=== PATIENT | male | born 1970 | race Two or more races ===

== ENCOUNTER 2024-03-23 17:23 | Inpatient (IN) | payer MEDICAID, SELFPAY ==
[2024-03-23 17:24] VITALS: BMI 29.0
[2024-03-23 17:32] VITALS: BP 128/77; PULSE 94; RESP 18; TEMP 37.1; O2SAT 98
--- NOTE | 2024-03-23 17:42 | XR_ITS ---
Examination: Foot, right, 3 views Technique: AP, oblique, lateral views foot, 3 views Date and time of exam: March 23, 2024 1748 hours INDICATIONS: Status post amputation 5 years ago, persistent foot pain, MRI foot right March 05, 2024 erosion medial cuneiform FINDINGS: Status post amputation at the level of the proximal metatarsals Erosion involving the medial aspect of the medial cuneiform IMPRESSION: Consider repeat MRI right foot follow-up to confirm osteomyelitis medial cuneiform
--- NOTE | 2024-03-23 17:43 | PD.EDRME ---
Rapid Medical Screening Exam E Arrival date/time: 03/23/24 17:23 54-year-old male with past medical history of diabetes and amputations presents emergency department complaining of worsening wound to right foot. Patient also endorses generalized weakness. Chief Complaint: Ankle/Foot Injury Time Seen by Provider: 03/23/24 17:32 Vital signs: Vital Signs Temperature 98.7 F 03/23/24 17:32 Pulse Rate 94 03/23/24 17:32 Respiratory Rate 18 03/23/24 17:32 Blood Pressure 128/77 03/23/24 17:32 Pulse Oximetry (%) 98 03/23/24 17:32 Oxygen Delivery Method Room Air 03/23/24 17:32
[2024-03-23 18:10] LABS: Lactate (Lactic Acid) 1.6 mMol/L (0.4-2.0)
[2024-03-23 18:11] LABS: Basophils % (Auto) 1 % (0-2.5); Eosinophils # (Auto) 0.3 Thou/mm3 (0.0-0.5); Eosinophils % (Auto) 3 % (0-10); Hematocrit 45.9 % (41.0-53.0); Hemoglobin 15.2 g/dL (13.5-16.0); Immature Granulocytes % (Auto) 0 % (0-0); Immature Granulocytes Auto 0.01 Thou/mm3 (0.00-0.00); Lymphocytes # (Auto) 2.6 Thou/mm3 (1.0-4.8); Lymphocytes % (Auto) 33 % (10-50); Mean Corpuscular HGB Conc 33.1 g/dl (31.0-37.0); Mean Corpuscular Hemoglobin 28.7 pg (25.0-35.0); Mean Corpuscular Volume 87 fL (80-100); Monocytes # (Auto) 0.4 Thou/mm3 (0.0-0.8); Monocytes % (Auto) 5 % (0-12); Neutrophils # (Auto) 4.6 Thou/mm3 (1.8-7.7); Neutrophils % (Auto) 58 % (37-80); Nucleated Red Blood Cell % 0 /100 WBC (0); Platelet Count 298 Thou/mm3 (140-440); RDW Standard Deviation 40.7 fL (35.1-43.9); Red Blood Count 5.29 Miln/mm3 (4.50-5.90); White Blood Count 7.9 Thou/mm3 (3.8-10.6)
[2024-03-23 18:45] LABS: Alanine Aminotransferase 21 U/L (10-49); Albumin, Serum 4.3 gm/dL (3.5-5.0); Albumin/Globulin Ratio 1.4 (1.2-2.2); Alkaline Phosphatase 142 U/L (46-116); Anion Gap 7 (7-16); Aspartate Amino Transferase 20 U/L (0-34); BUN/Creatinine Ratio 15 Ratio (12-20); Bilirubin,Total 0.3 mg/dL (0.3-1.2); Blood Urea Nitrogen 16 mg/dL (9-23); Calcium 9.7 mg/dL (8.3-10.6); Calcium (Corrected) 9.7 mg/dL (8.5-10.1); Carbon Dioxide 24.4 mMol/L (20.0-31.0); Chloride 107 mMol/L (98-107); Creatinine (Component) 1.1 mg/dL (0.6-1.3); Estimated Creatinine Clearance 104.6 mL/min (>60); Globulin 3.1 gm/dL (2.3-3.5); Glucose 189 mg/dL (74-106); Lipase 36 U/L (12-53); Osmolality,Calculated 281 (275-295); Procalcitonin 0.07 ng/ml (0.0-0.49); Sodium 138 mMol/L (136-145); Total Protein 7.4 gm/dL (5.7-8.2); eGFR > 60 See Note
--- NOTE | 2024-03-23 19:12 | PD.EDANKLE ---
Lower Extremity Injury RME/HPI General Chief Complaint: Ankle/Foot Injury Stated Complaint: OLD WOUND RIGHT FOOT OPENED YESTERDAY Time Seen by Provider: 03/23/24 17:32 Arrival date/time: 03/23/24 17:23 RME / HPI RME / HPI Narrative: 03/23/24 17:23 54-year-old male with past medical history of diabetes and amputations presents emergency department complaining of worsening wound to right foot. Patient also endorses generalized weakness. Main ED Evaluation: Patient is a 54 y.o male with PMhx significant for DM, multiple amputations of feet, CAD, osteomyelitis of L and R digits on PO Abx presented to the ED with worsening right foot pain. Patient states he has been on his PO Levofloxacin and Doxycyline, with course to finish on 04/16. Patient states that since Friday, patient has noted subjective fevers, sweating, chills, nausea, constipation and feeling generalized weakness. Patient also states that his right foot feels really heavy. Patient last bowel movement was on Friday. Patient states that he has been compliant with his insulin, oral antibiotics and daily wound dressings as per discharge instructions from previous hospitalization. Of note, Patient was initally on IV Abx and d/t issues with his insurance, ID specialist agreed for trial of oral PO Abx. Recent send-out labs ordered by Dr. Bal, ID specialist was negative for HIV, Hepatitis, and Quantiferon Gold. Meds: Insulin glargine 40u QAM, Insulin Aspart 12u TID, Asa 81mg QD, Levo 750mg QD, and Doxycycline 100mg BID Related Data Home Medications ?Medication ?Instructions ?Recorded ?Confirmed gabapentin 300 mg capsule 300 mg PO TID 09/27/17 03/06/24 lactulose 20 gram/30 mL oral 30 ml PO EVERYOTHERDAY 09/27/17 03/05/24 solution Previous Rx's ?Medication ?Instructions ?Recorded magnesium 200 mg tablet 200 mg PO QDAY #10 tabs 01/06/24 acetaminophen 325 mg tablet 650 mg (2 x 325 mg) PO Q6H PRN 03/12/24 Pain Scale 1-3 (Mild #14 tabs aspirin 81 mg tablet,delayed 81 mg PO QDAY #30 tabs 03/12/24 release doxycycline hyclate 100 mg capsule 100 mg PO BID 34 days #68 caps 03/12/24 insulin aspart U-100 100 unit/mL 12 unit (0.12 mL) subcut TID #15 mL 03/12/24 (3 mL) subcutaneous pen insulin glargine 100 unit/mL (3 40 unit (0.4 mL) subcut QAM #15 mL 03/12/24 mL) subcutaneous pen levofloxacin 750 mg tablet 750 mg PO QDAY 34 days #34 tabs 03/12/24 lisinopril 40 mg tablet 40 mg PO QDAY #30 tabs 03/12/24 multivitamin with folic acid 400 1 tab PO QDAY #30 tabs 03/12/24 mcg tablet (Tab-A-John) polyethylene glycol 3350 17 4 g PO QDAY PRN constipation #238 03/12/24 gram/dose oral powder (Miralax) grams Allergies Allergy/AdvReac Type Severity Reaction Status Date / Time vancomycin Allergy Severe Swelling Verified 03/23/24 17:26 of Lip/Tongue/Throat Review of Systems Review of Systems Narrative Review of Systems: GEN: + fever, + chills, no weight loss, lack of appetite EYES: No discharge, no visual changes, no pain HEENT: No ear pain, no congestion, no sore throat PULM: No shortness of breath, no cough, no congestion CV: No chest pain, no dyspnea on exertion, no palpitations GI: +nausea, no vomiting, no diarrhea, no pain, + constipation : No frequency, no urgency, no dysuria MUSC/SKEL: +Right stump pain, No joint pain, no back pain SKIN: No rash PSYCH: No hallucinations, no depression HEME/LYMPH: No easy bleeding or bruising tendencies NEURO: +weakness, no headache ED Exam Narrative Physical exam: General Appearance: Pt in mild acute distress sitting in his wheelchair. HEENT: NC/AT, no scleral icterus, no conjunctival pallor, MMM Lungs: CTAB, no wheezes or crackles appreciated CVS: RRR, S1/S2 heard, no murmurs or rubs appreciated ABD: Soft, non-tender, non-distended, BS + in all 4 quadrants EXT: Right plantar surface open wound 1.5cm wide with no adjacent pus or drainage noted, covered with dressing wound. Lateral left fifth metatarsal linear open wound healing, site is clean and intact, covered with dressing. SKIN: Skin exam normal without any rashes. Neuro: A&O x 3. No gross neurological deficits. Motor and sensory grossly intact in B/L UL and LL. Psych: Appropriate mood and affect Course Quality Measures none Orders Category Date Time Status XR foot comp RT min 3V Stat Exams 03/23/24 17:42 Completed CBC Stat Lab 03/23/24 17:50 Completed CMP [Comprehensive Metabolic Panel] Stat Lab 03/23/24 17:50 Completed Lactic Acid [Lactate (Lactic Acid)] Stat Lab 03/23/24 17:50 Completed Lipase Stat Lab 03/23/24 17:50 Completed Procalcitonin Stat Lab 03/23/24 17:50 Completed Vital Signs Vital signs: Vital Signs Temperature 98.7 F 03/23/24 17:32 Pulse Rate 94 03/23/24 17:32 Respiratory Rate 18 03/23/24 17:32 Blood Pressure 128/77 03/23/24 17:32 Pulse Oximetry (%) 98 03/23/24 17:32 Oxygen Delivery Method Room Air 03/23/24 17:32 Extremity Injury, Lower Patient data External records reviewed:: [facility] previous records Clinical information provided by:: patient Social determinants that could affect healthcare access:: other (specify) (insurance) Patient has the following chronic illnesses:: DM and recently diagnosed osteomyelitis s/p digit amptuations years prior How is presenting disease/condition affected by chronic disease/condition?: caused by Evaluation data The following diagnostics were reviewed and interpreted by me:: lab results and radiology exam(s) Lab and/or radiology exams considered but not ordered:: ESR, CRP Interpretation Summary: Vital signs have been stable. CBC unremarkable. CMP unremarkable except for elevated glucose at 189 and elevated alk phos. Procal negative. Foot of right x-ray shows status post amputation at the level of the proximal metatarsals and erosion involving the medial aspect of the medial cuneiform. Medications / Prescriptions Medications or Prescriptions considered but not ordered:: none Medication administrations:: Medication Administration History Hydrocodone Bitart/Acetaminophen (Hydrocodone/Apap 5/325 Tablet) 1 tab PO Q4HR PRN PRN Reason: Pain 4-10 Stop: 03/28/24 20:19 Aspirin (Aspirin Ec 81 Mg Tabec) 81 mg PO QDAY [facility] Stop: 04/23/24 08:59 Dextrose (Dextrose 50%-Water Inj 50 Ml Syringe) 25 ml IV Q15MIN PRN PRN Reason: BG 50-70 responsive npo pt Stop: 04/22/24 20:17 Dextrose (Dextrose 50%-Water Inj 50 Ml Syringe) 50 ml IV Q15MIN PRN PRN Reason: BG <50 OR BG <70 & pt unresponsive Stop: 04/22/24 20:17 Gabapentin (Gabapentin 300 Mg Capsule) 300 mg PO TID BRODY Stop: 04/22/24 21:59 Last Admin: 03/23/24 22:07 Dose: 300 mg Documented By: KG Heparin Sodium (Porcine) (Heparin Sod Inj 5000 Unit/Ml Vial) 5,000 unit SC Q8HR [facility]ODY Stop: 04/06/24 21:59 Last Admin: 03/23/24 22:07 Dose: 5,000 unit Documented By: KG Co-signed By: RIRI Ceftriaxone Sodium/Dextrose (Rocephin/D5w 1gm Iv Premix) 50 mls @ 100 mls/hr IV QDAY [facility] Stop: 03/30/24 20:16 Last Infusion: 03/23/24 21:39 Dose: Infused Documented By: Admin: 03/23/24 21:05 Dose: 100 mls/hr Documented By: KG Doxycycline Hyclate 100 mg/ (Sodium Chloride) 100 mls @ 100 mls/hr IV BID [facility] Stop: 03/30/24 20:59 Last Infusion: 03/23/24 22:17 Dose: Infused Documented By: Admin: 03/23/24 21:16 Dose: 100 mls/hr Documented By: KG Insulin Glargine (Insulin Glargine (Lantus) 5 Unit/0.05 Ml (Per 5 Units)) 40 unit SC QDAY [facility] Stop: 04/23/24 08:59 Insulin Human Lispro (Insulin Lispro (Admelog) 1 Unit/0.01 Ml Unit) 0 unit SC ACHS [facility]; Protocol Stop: 04/22/24 20:59 Last Admin: 03/23/24 21:10 Dose: 4 unit Documented By: KG Co-signed By: ADRIEN Lactulose (Lactulose Syrup 20 Gm/30 Ml Udc) 10 gm PO TID PRN; Protocol PRN Reason: constipation Stop: 04/22/24 21:59 Metoclopramide HCl (Metoclopramide Inj 5 Mg/Ml Vial 2 Ml) 2.5 mg IVP Q8HR PRN; Protocol PRN Reason: gastroparesis Stop: 04/22/24 22:14 Ondansetron HCl (Ondansetron Inj 2 Mg/Ml Inj 2 Ml) 4 mg IV Q6H PRN; Protocol PRN Reason: NAUSEA OR VOMITING Stop: 04/22/24 20:14 Discontinued Medications Insulin Glargine (Insulin Glargine (Lantus) 5 Unit/0.05 Ml (Per 5 Units)) 4 unit SC QDAY [facility] Stop: 04/23/24 08:59 [place] x 1 Consultations Consultation(s) initiated? (list below): No Diagnosis Extremity Injury, Lower Differential Diagnosis: puncture wound of foot and other (R medial foot osteomyelitis ) Most likely diagnosis given after review of the tests above:: R foot osteomyelitis Admission Indicated Admission indicated?: indicated Explain why admission is indicated or not indicated:: Patient is a 54 y.o male with PMhx significant for DM, multiple amputations of feet, CAD, osteomyelitis of L and R digits on PO Abx presented to the ED with worsening right foot pain Friday. Patient was diagnosed with osteomyelitis based on MRI findings during last hospitalization, and decision was made to transition from IV antibiotics to p.o. antibiotics due to insurance difficulty for IV antibiotics. Dr Bal, ID specialist was on board with p.o. antibiotics trial. However, patient was likely has failed outpatient p.o. antibiotics due to worsening right foot pain, fevers, chills, sweating, and feeling generalized. Patient would benefit from IV antibiotics and hospital admission. Patient's care and plan discussed with my attending, Dr. Mariely Ball, PGY 2 Admission Request Was there a request for admission?: Yes Admission Attestation Admission request attestation: Discussed case with [] from Hospitalist service regarding admission. Discussed patients ED course, exam findings, labs, and radiology results. The Hospitalist [agrees,declines] to accept the patient for admission. Disposition Plan Disposition Plan: Admit Discharge Plan Plan Patient Disposition: Other Care w/in Hosp ([facility]) Problem List Clinical Impression: Foot osteomyelitis, right MD Attestation MD Attestation The patient was seen by the PGY-2. I, the supervising physician, also encountered and examined the patient and remained present during the entire ER visit. With the PGY 2, the workup, management, treatment, medical decision making, and documentation was formulated. I agree with the plan and documentation.
--- NOTE | 2024-03-23 20:22 | PD.HHHP ---
Documentation for date of: 03/23/24 HPI - Hospitalist History of Present Illness History of present illness: 54-year-old male past medical history of type 2 diabetes on insulin, hypertension, diabetic neuropathy, coronary artery disease presenting to the ED with a chief complaint of subjective fevers, chills, generalized weakness, nausea, and worsening pain on the right lower extremity. Patient was recently admitted for left lower extremity osteomyelitis for which he was discharged on oral antibiotics. He mentioned that he was compliant with his antibiotics however he continued to be symptomatic for which he came back to the hospital. He mentioned that he is compliant with his insulin. Of note, patient was recently incarcerated and has not been able to take his prescribed medications. Patient uses a walking boot usually for ambulation on both extremities as he has multiple amputations in the past secondary to diabetic foot ulcer. Patient denies any sick contacts. No reported other complaints. In the ED, his vital signs were stable and he was afebrile. Labs showed no leukocytosis and glucose was WNL. X-ray of the right foot, showed worsening osteomyelitis. He was admitted for IV antibiotics and ID evaluation. 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 daily, Jardiance (unsure dosage), Zoloft 20 mg daily, Lantus (unsure dosage) Allergies: Vancomycin Family history: Mother with type 2 diabetes and heart disease (coronary artery disease), sister with type 2 diabetes and stents for coronary artery disease Social history: Patient lives with his sister, recently incarcerated, polysubstance use, tobacco use, alcohol use remote use Review of Systems Review of Systems Narrative Review of Systems: 12 point of system are reviewed. Negative except as mentioned in the HPI. Meds Home Medications and Allergies Home Medications ?Medication ?Instructions ?Recorded ?Confirmed ?Type gabapentin 300 mg capsule 300 mg PO TID 09/27/17 03/06/24 History lactulose 20 gram/30 mL oral 30 ml PO EVERYOTHERDAY 09/27/17 03/05/24 History solution Allergies Allergy/AdvReac Type Severity Reaction Status Date / Time vancomycin Allergy Severe Swelling Verified 03/23/24 17:26 of Lip/Tongue/Throat Exam Vital Signs Temp Pulse Resp BP Pulse Ox O2 Del Method 98.7 F 94 18 128/77 98 Room Air 03/23/24 17:32 03/23/24 17:32 03/23/24 17:32 03/23/24 17:32 03/23/24 17:32 03/23/24 17:32 Narrative General: Alert and oriented x3. In no acute distress. Eyes: Pupils are equal and reactive to light bilaterally. HEENT: Atraumatic, normocephalic. No JVD noted. Cardiovascular: Normal S1 and S2. Normal rate and regular rhythm. No murmurs appreciated. No peripheral pitting edema noted. No JVD noted. Respiratory: No respiratory distress. Lungs are clear to auscultation bilaterally. No wheezing or crackles heard. Abdomen: Soft, nontender, nondistended. Skin: No rash. Neuro: Alert and oriented x3. Sensation is intact throughout. Strength is 5/5 and symmetric. No focal neuro deficits. Psych: Normal affect and mood. Extremities: No presence of trace or pitting edema in lower extremities bilaterally, dorsalis pedis pulses +2 bilaterally. Presence of previous partial amputation. Presence of dressing of lateral L forefoot that appears not to be actively infected. Presence of previous TMAs of L foot. Presence of right foot diabetic ulcer with foul-smelling however no purulent discharge. Results - Hospitalist Labs Diagrams: 03/23/24 17:50 03/23/24 17:50 Labs: Short CBC 03/23/24 Range/Units 17:50 WBC 7.9 (3.8-10.6) Thou/mm3 Hgb 15.2 (13.5-16.0) g/dL Hct 45.9 (41.0-53.0) % Plt Count 298 D (140-440) Thou/mm3 BMP 03/23/24 17:50 Sodium 138 Potassium 4.0 Chloride 107 Carbon Dioxide 24.4 BUN 16 Creatinine 1.1 Glucose 189 H Calcium 9.7 Liver Function 03/23/24 Range/Units 17:50 Total Bilirubin 0.3 (0.3-1.2) mg/dL AST 20 (0-34) U/L ALT 21 (10-49) U/L Alkaline Phosphatase 142 H (46-116) U/L Albumin 4.3 (3.5-5.0) gm/dL Assessment & Plan -Hospitalist Patient Synopsis 54-year-old male with recent admission for osteomyelitis who presented with subjective fevers, generalized weakness, and worsening pain over his left foot. He was found to have worsening osteomyelitis. #Osteomyelitis, R foot, acute on chronic #Diabetic foot ulcer, right Patient with history of multiple amputations secondary to diabetic foot ulcer, uncontrolled diabetes Not septic at this time X-ray of the foot shows worsening osteomyelitis on the right Foot appears to have a dry gangrene He was recently admitted and discharged on oral antibiotics Plan: Will cover empirically with IV Rocephin and doxycycline Send repeat blood cultures Consult ID. Appreciate recommendations. #Type 2 diabetes, insulin-dependent, uncontrolled On home insulin, A1C 9.3 Plan: Resume insulin Lantus 40 units daily plus sliding scale insulin. Adjust based on the fingersticks. Monitor fingersticks ACHS. Resume home gabapentin for neuropathy Reglan as needed for nausea/possible gastroparesis #Coronary artery disease Patient explains that he has chest pain upon exertion Extensive family history of coronary artery disease, sister with stent, mother with heart disease Plan: Resume home aspirin CODE STATUS is full code DVT prophylaxis with subcutaneous heparin Admitting to ops/MedSurg. Pending ID recommendations Diet is diabetic: Low carb consistent Quality Measures Quality Measures VTE prophylaxis (Subcutaneous heparin)
--- NOTE | 2024-03-23 20:41 | PC.NURSE ---
Admitting provider at the bedside.
[2024-03-23 21:01] VITALS: BP 131/88; PULSE 99; RESP 19; TEMP 37.7; O2SAT 97
[2024-03-23] MEDS: cefTRIAXone/D5w 1gm IV premix 50 ML IV (21:05)
[2024-03-23] MEDS: INSULIN LISPRO (AdmeLOG) 1 UNIT/0.01 ML UNIT SC (21:10)
[2024-03-23] MEDS: DOXYCYCLINE INJ 100 MG in SODIUM CHLORIDE 0.9% (P) 100 ML IV (21:16)
[2024-03-23] MEDS: HEPARIN SOD INJ 5000 UNIT/ML VIAL SC (22:07)
[2024-03-23] MEDS: GABAPENTIN 300 MG CAPSULE PO (22:07)
[2024-03-23 22:10] VITALS: BP 107/83; PULSE 84; RESP 16; O2SAT 96
[2024-03-23 22:24] VITALS: BMI 28.7
[2024-03-24] VITALS (7 sets, daily range): BP systolic 102–166; BP diastolic 75–104; PULSE 70–102; RESP 17–20; TEMP 36.1–36.8; O2SAT 96–98; BMI 28.7
[2024-03-24] MEDS: HEPARIN SOD INJ 5000 UNIT/ML VIAL SC ×3 (05:21→21:45)
[2024-03-24] MEDS: GABAPENTIN 300 MG CAPSULE PO ×3 (05:22→21:45)
[2024-03-24 05:54] LABS: Basophils % (Auto) 1 % (0-2.5); Eosinophils # (Auto) 0.2 Thou/mm3 (0.0-0.5); Eosinophils % (Auto) 4 % (0-10); Hematocrit 42.6 % (41.0-53.0); Hemoglobin 13.9 g/dL (13.5-16.0); Immature Granulocytes % (Auto) 0 % (0-0); Lymphocytes # (Auto) 2.8 Thou/mm3 (1.0-4.8); Lymphocytes % (Auto) 47 % (10-50); Mean Corpuscular HGB Conc 32.6 g/dl (31.0-37.0); Mean Corpuscular Hemoglobin 28.6 pg (25.0-35.0); Mean Corpuscular Volume 88 fL (80-100); Monocytes # (Auto) 0.4 Thou/mm3 (0.0-0.8); Monocytes % (Auto) 7 % (0-12); Neutrophils # (Auto) 2.5 Thou/mm3 (1.8-7.7); Neutrophils % (Auto) 42 % (37-80); Nucleated Red Blood Cell % 0 /100 WBC (0); Platelet Count 237 Thou/mm3 (140-440); RDW Standard Deviation 41.3 fL (35.1-43.9); Red Blood Count 4.86 Miln/mm3 (4.50-5.90)
[2024-03-24 06:36] LABS: Anion Gap 6 (7-16); BUN/Creatinine Ratio 15 Ratio (12-20); Blood Urea Nitrogen 15 mg/dL (9-23); Calcium 9.3 mg/dL (8.3-10.6); Carbon Dioxide 25.6 mMol/L (20.0-31.0); Chloride 108 mMol/L (98-107); Estimated Creatinine Clearance 114.6 mL/min (>60); Glucose 119 mg/dL (74-106); Osmolality,Calculated 281 (275-295); Potassium 4.1 mMol/L (3.4-5.1); Sodium 140 mMol/L (136-145); eGFR > 60 See Note
[2024-03-24] MEDS: INSULIN LISPRO (AdmeLOG) 1 UNIT/0.01 ML UNIT SC ×2 (08:15→20:35)
[2024-03-24] MEDS: cefTRIAXone/D5w 1gm IV premix 50 ML IV (08:32)
[2024-03-24] MEDS: ASPIRIN EC 81 MG TABEC PO (08:38)
[2024-03-24] MEDS: DOXYCYCLINE INJ 100 MG in SODIUM CHLORIDE 0.9% (P) 100 ML IV (08:38)
[2024-03-24] MEDS: INSULIN GLARGINE (Lantus) 5 UNIT/0.05 ML (PER 5 UNITS) 40 UNIT SC (08:47)
--- NOTE | 2024-03-24 09:35 | PC.SS ---
Follow up note: Pt is on IV antibiotic. Cultures are pending. Pt is HH vs SNF.
[2024-03-24 11:14] LABS: C-Reactive Protein < 0.4 mg/dL (0.0-0.9)
[2024-03-24 12:02] LABS: Sed Rate (ESR) 28 mm/hr (0-20)
--- NOTE | 2024-03-24 12:48 | ESPR_ITS ---
<Statement entered by Han Clement MD - 03/24/24 16:19> Patient was seen and examined at the bedside. Patient was recently discharged from the hospital on p.o. antibiotic therapy for osteomyelitis left foot. Patient came back with right foot pain and swelling. Foot x-ray consistent with osteomyelitis right foot. MRI right foot ordered. Continuing IV antibiotic therapy WITH Rocephin and doxycycline. Surgery, Dr. Coy recommendations pending. Insulin regime adjusted, ID recs pending.All labs and orders reviewed. I saw and examined the patient, and I agree with current management stated by Dr Taz DO ,PGY1. Plan of care was discussed with the attending physician and resident physician Disclaimer: Despite multiple revisions, due to the dictation software being used, the document bellow may not be free of grammatical errors including phonetic/typographic errors. However, this does not deter from our commitment to providing health care in the patient's best interest in mind. Dr. Urbano MD, PGY 2 Documentation for date of: 03/24/24 Subjective Subjective Interval history: Pt examined at bedside today, says that he is feeling okay. Reports that he has been trying to get his insurance switched which is something he needed to do last admission to the ER but has not been able to get in contact with [facility]. Says that all his symptoms began friday. He is not experiencing any CP, SOB, NVD at this time. Says he has some pain in his R foot but it does not feel that bad. Says hes been trying to minimize the amount of time he spends on his feet as well. Exam Vital Signs Temp Pulse Resp BP Pulse Ox O2 Del Method 97.4 F 96 18 159/91 H 97 Room Air 03/24/24 11:26 03/24/24 11:26 03/24/24 11:26 03/24/24 11:26 03/24/24 11:26 03/24/24 11:26 Narrative Exam General: AAOx3, NAD, HEENT: Moist mucous membranes, conjunctiva clear, EOMI, PERRLA, Cardiovascular: S1, S2, radial pulses +2 bilat, RRR Pulmonary: CTAB bilat no cough, no wheezing GI: No tenderness to light or deep palpitation, abdomen soft, bowel sounds present Extremities: No presence of trace or pitting edema in lower extremities bilaterally, dorsalis pedis pulses +2 bilaterally. Presence of previous partial of R foot (half of foot is amputated). Ulcer present on R dorsal foot, open wound with no active drainage at this time, covered with dressing. Presence of dressing of lateral L forefoot. Presence of previous TMAs of L foot. Neuro: AAOx3, no focal motor or sensory deficits in the UE or LE bilat Psych: Good judgement, thought and behavior. Cooperative Objective Labs 03/24/24 04:54 03/24/24 04:54 Labs: Laboratory Results - last 24 hr 03/23/24 03/24/24 17:50 04:54 WBC 7.9 6.0 RBC 5.29 4.86 Hgb 15.2 13.9 Hct 45.9 42.6 MCV 87 88 MCH 28.7 28.6 MCHC 33.1 32.6 RDW Std Deviation 40.7 41.3 Plt Count 298 D 237 D Neut % (Auto) 58 42 Lymph % (Auto) 33 47 [place] % (Auto) 5 7 Eos % (Auto) 3 4 Baso % (Auto) 1 1 Neut # (Auto) 4.6 2.5 Lymph # (Auto) 2.6 2.8 [place] # (Auto) 0.4 0.4 Eos # (Auto) 0.3 0.2 Baso # (Auto) 0.0 0.0 Immature Gran # (Auto) 0.01 H 0.00 Absolute Nucleated RBC 0.00 0.00 Immature Gran % 0 0 Nucleated RBC % 0 0 ESR 28 H Sodium 138 140 Potassium 4.0 4.1 Chloride 107 108 H Carbon Dioxide 24.4 25.6 Anion Gap 7 6 L BUN 16 15 Creatinine 1.1 1.0 Estim Creat Clear Calc 104.6 114.6 eGFR > 60 > 60 BUN/Creatinine Ratio 15 15 Glucose 189 H 119 H D Calculated Osmolality 281 281 Lactic Acid 1.6 Calcium 9.7 9.3 Corrected Calcium 9.7 Total Bilirubin 0.3 AST 20 ALT 21 Alkaline Phosphatase 142 H C-Reactive Prot, Quant < 0.4 Total Protein 7.4 Albumin 4.3 Globulin 3.1 Albumin/Globulin Ratio 1.4 Lipase 36 Procalcitonin 0.07 Quality Measures Quality Measures none Assessment & Plan Assessment Current Active Medications: Generic Name Dose Route Start Last Admin Trade Name Freq PRN Reason Stop Dose Admin Hydrocodone Bitart/Acetaminophen 1 tab 03/23/24 20:20 Hydrocodone/Apap 5/325 Tablet PO 03/28/24 20:19 Q4HR PRN Pain 4-10 Aspirin 81 mg 03/24/24 09:00 03/24/24 08:38 Aspirin Ec 81 Mg Tabec PO 04/23/24 08:59 81 mg QDAY BRODY Administration Dextrose 25 ml 03/23/24 20:18 Dextrose 50%-Water Inj 50 Ml Syringe IV 04/22/24 20:17 Q15MIN PRN BG 50-70 responsive npo pt Dextrose 50 ml 03/23/24 20:18 Dextrose 50%-Water Inj 50 Ml Syringe IV 04/22/24 20:17 Q15MIN PRN BG <50 OR BG <70 & pt unresponsive Gabapentin 300 mg 03/23/24 22:00 03/24/24 05:22 Gabapentin 300 Mg Capsule PO 04/22/24 21:59 300 mg TID BRODY Administration Heparin Sodium (Porcine) 5,000 unit 03/23/24 22:00 03/24/24 05:21 Heparin Sod Inj 5000 Unit/Ml Vial SC 04/06/24 21:59 5,000 unit Q8HR BRODY Administration Ceftriaxone Sodium/Dextrose 50 mls @ 100 mls/hr 03/23/24 20:17 03/24/24 09:02 Rocephin/D5w 1gm Iv Premix IV 03/30/24 20:16 Infused QDAY BRODY Infusion Doxycycline Hyclate 100 mg/ 100 mls @ 100 mls/hr 03/23/24 21:00 03/24/24 09:38 Sodium Chloride IV 03/30/24 20:59 Infused BID BRODY Infusion Insulin Glargine 40 unit 03/24/24 09:00 03/24/24 08:47 Insulin Glargine (Lantus) 5 Unit/0.05 Ml (Per 5 Units) SC 04/23/24 08:59 40 unit QDAY BRODY Administration Insulin Human Lispro 0 unit 03/23/24 21:00 03/24/24 12:22 Insulin Lispro (Admelog) 1 Unit/0.01 Ml Unit SC 04/22/24 20:59 Not Given ACHS BRODY Protocol Lactulose 10 gm 03/23/24 20:20 Lactulose Syrup 20 Gm/30 Ml Udc PO 04/22/24 21:59 TID PRN constipation Protocol Metoclopramide HCl 2.5 mg 03/23/24 22:13 Metoclopramide Inj 5 Mg/Ml Vial 2 Ml IVP 04/22/24 22:14 Q8HR PRN gastroparesis Protocol Ondansetron HCl 4 mg 03/23/24 20:15 Ondansetron Inj 2 Mg/Ml Inj 2 Ml IV 04/22/24 20:14 Q6H PRN NAUSEA OR VOMITING Protocol Plan Assessment 54-year-old male with recent admission for osteomyelitis who presented with subjective fevers, generalized weakness, and worsening pain over his left foot. He was found to have worsening osteomyelitis. Plan: #Osteomyelitis, R foot, acute on chronic #History of osteomyelitis of left foot #History of diabetic ulcers #History of TMA #History of amputations of foot #Diabetic foot ulcer, right Patient with history of multiple amputations secondary to diabetic foot ulcer, uncontrolled diabetes Not septic at this time X-ray of the foot shows worsening osteomyelitis on the right Foot appears to have a dry gangrene He was recently admitted and discharged on oral antibiotics Patient was recently here for OM of left foot Plan: Will cover empirically with IV Rocephin and doxycycline Send repeat blood cultures Consult ID. Appreciate recommendations. *MRI General Surgery, Dr. Coy consulted Continue with antibiotics #Type 2 diabetes, insulin-dependent, uncontrolled On home insulin, A1C 9.3 Plan: Resume insulin Lantus 40 units daily plus sliding scale insulin. Adjust based on the fingersticks. Monitor fingersticks ACHS. Resume home gabapentin for neuropathy Reglan as needed for nausea/possible gastroparesis #Coronary artery disease Patient explains that he has chest pain upon exertion Extensive family history of coronary artery disease, sister with stent, mother with heart disease Plan: Resume home aspirin #History of hypertriglyceridemia Was in 200s on March 06 Plan: ? Stable #Health Maintenance Disposition: MedSurg DVT prophylaxis: Heparin GI prophylaxis: None at this time Diet: Carb consistent CODE STATUS: Patient seen and care discussed with my senior resident, Dr. Clement , and my attending physician, Dr. Sandra Mcghee, PGY-1 Attending Provider Attestation/Addendum I have discussed and was present for the essential components of the history, physical examination, diagnosis, and treatment plan with the resident. I agree with the patient's care as documented by the resident and amended herein by me. Irvin Flroes DO. Although this document has been carefully reviewed, there may still be some phonetic and other typographical errors. These errors are purely grammatical due to imperfections in the software program and should not be construed in any way to compromise the substance of the patient's medical care during this visit.
--- NOTE | 2024-03-24 14:09 | PD.IDPROG ---
Subjective Subjective Interval history: was released from ed with iv rx. unclear if po rx also given. and taken Exam Vital Signs Temp Pulse Resp BP Pulse Ox O2 Del Method 97.4 F 96 18 159/91 H 97 Room Air 03/24/24 11:26 03/24/24 11:26 03/24/24 11:26 03/24/24 11:26 03/24/24 11:26 03/24/24 11:26 Narrative Exam will see formally friday if he remains. pt was seen already in early september. see note then Objective - Internal Medicine Labs 03/24/24 04:54 03/24/24 04:54 Labs: Laboratory Results - last 24 hr 03/23/24 03/24/24 17:50 04:54 WBC 7.9 6.0 RBC 5.29 4.86 Hgb 15.2 13.9 Hct 45.9 42.6 MCV 87 88 MCH 28.7 28.6 MCHC 33.1 32.6 RDW Std Deviation 40.7 41.3 Plt Count 298 D 237 D Neut % (Auto) 58 42 Lymph % (Auto) 33 47 [place] % (Auto) 5 7 Eos % (Auto) 3 4 Baso % (Auto) 1 1 Neut # (Auto) 4.6 2.5 Lymph # (Auto) 2.6 2.8 [place] # (Auto) 0.4 0.4 Eos # (Auto) 0.3 0.2 Baso # (Auto) 0.0 0.0 Immature Gran # (Auto) 0.01 H 0.00 Absolute Nucleated RBC 0.00 0.00 Immature Gran % 0 0 Nucleated RBC % 0 0 ESR 28 H Sodium 138 140 Potassium 4.0 4.1 Chloride 107 108 H Carbon Dioxide 24.4 25.6 Anion Gap 7 6 L BUN 16 15 Creatinine 1.1 1.0 Estim Creat Clear Calc 104.6 114.6 eGFR > 60 > 60 BUN/Creatinine Ratio 15 15 Glucose 189 H 119 H D Calculated Osmolality 281 281 Lactic Acid 1.6 Calcium 9.7 9.3 Corrected Calcium 9.7 Total Bilirubin 0.3 AST 20 ALT 21 Alkaline Phosphatase 142 H C-Reactive Prot, Quant < 0.4 Total Protein 7.4 Albumin 4.3 Globulin 3.1 Albumin/Globulin Ratio 1.4 Lipase 36 Procalcitonin 0.07 Assessment & Plan A&P Narrative osteo of foot. see imaging dm II pvd if he has an amputation, then role of abx absent if he prefers rx, then duration may depend on what he took before. as he was seen in Ed on 03/12 and started on rx at that time. (thru 04/23) if he did not get the doxy then may have to extend rx to 6 weeks from initiation as it remains empirical with no pos cx to guide rx Time Spent With Patient Time: Total time spent is greater than 50% in coordination of care (as documented) at patient's floor/unit and/or counseling patient:
--- NOTE | 2024-03-24 15:16 | PC.SS ---
SS was informed by Lawanda at [facility] only covers room and board, not IV antibiotics.
--- NOTE | 2024-03-24 15:50 | PD.SURCONS ---
HPI Consult details Consult date: 03/24/24 Reason for consultation narrative: Patient was seen on consultation for osteomyelitis of the right cuneiform bone. Patient also has an ulceration over the end of the right foot History of present illness: History of present illness revealed the patient was treated for the similar problem here with IV antibiotics 1 and half weeks ago and then discharged. Because of his insurance coverage is not going to be available for IV antibiotics he was given p.o. antibiotics. At the present time he is having some pain Meds Home Medications and Allergies Home Medications ?Medication ?Instructions ?Recorded ?Confirmed ?Type gabapentin 300 mg capsule 300 mg PO TID 09/27/17 03/06/24 History lactulose 20 gram/30 mL oral 30 ml PO EVERYOTHERDAY 09/27/17 03/05/24 History solution Allergies Allergy/AdvReac Type Severity Reaction Status Date / Time vancomycin Allergy Severe Swelling Verified 03/23/24 17:26 of Lip/Tongue/Throat Exam Vital Signs Temp Pulse Resp BP Pulse Ox O2 Del Method 97.4 F 96 18 159/91 H 97 Room Air 03/24/24 11:26 03/24/24 11:26 03/24/24 11:26 03/24/24 11:26 03/24/24 11:26 03/24/24 11:26 Narrative Exam My examination revealed a small ulceration over the plantar aspect of the right foot Results Results: Imaging Imaging narrative: X-ray shows possible early osteomyelitis of the cuneiform bone the right side Assessment & Plan Additional Assessment Additional comments: Impression: Ulceration of the right foot with possible osteomyelitis Plan Plan: I do not really osteomyelitis of the tarsal bones it is worth to get an orthopedic evaluation about how to approach this. However patient does not require any surgical intervention at this time other than IV antibiotic. Thank you very much
--- NOTE | 2024-03-24 16:17 | PC.SS ---
SS was informed by pt he has contacted the supervisor transferring and boxing from health insurance who informed him Medical will be switched to [facility] Apr 09, 2024.
[2024-03-24] MEDS: HYDROcodone/APAP 5/325 TABLET 1 TAB PO ×2 (16:48→20:18)
--- NOTE | 2024-03-24 18:31 | XR_ITS ---
Examination: MRI right ankle, without contrast Date and time of exam: March 24, 2024 1633 hours INDICATIONS: Nonhealing wound right ankle foot this week, history mid foot amputation, erosion involving medial aspect of the medial cuneiform on plain films of the foot March 23, 2024 Technique: Multiple axial sagittal and coronal images of the right ankle have been obtained with the Siemens high-resolution 1.5 Tory MRI scanner. Images obtained include T2-weighted fat-suppressed sagittal sections, TR 3500, TE 46, T2 weighted coronal fat suppressed images, TR 3050, TE 84, T2-weighted transverse fat suppressed images, TR 3260, TE 63, proton density transverse images, TR 4720 TE 46, and T1 weighted coronal images, TR 560, TE 13. Findings: Marked edema surrounding the flexor hallucis longus Soft tissue infection at the amputation stump Cortical bone destruction involving the distal medial mid cuneiforms No soft tissue abscess No fracture IMPRESSION: Early osteomyelitis involving the distal cortical margins medial and mid cuneiforms
[2024-03-24] MEDS: DOXYCYCLINE 100 MG TABLET PO (20:13)
[2024-03-24] MEDS: LACTULOSE SYRUP 20 GM/30 ML UDC 10 GM PO (20:14)
[2024-03-25 04:00] VITALS: BP 123/69; PULSE 60; RESP 18; TEMP 36.4; O2SAT 95
[2024-03-25 05:29] LABS: Basophils % (Auto) 1 % (0-2.5); Eosinophils # (Auto) 0.2 Thou/mm3 (0.0-0.5); Eosinophils % (Auto) 4 % (0-10); Hematocrit 42.8 % (41.0-53.0); Immature Granulocytes % (Auto) 0 % (0-0); Immature Granulocytes Auto 0.01 Thou/mm3 (0.00-0.00); Lymphocytes # (Auto) 2.9 Thou/mm3 (1.0-4.8); Lymphocytes % (Auto) 54 % (10-50); Mean Corpuscular HGB Conc 32.7 g/dl (31.0-37.0); Mean Corpuscular Volume 86 fL (80-100); Monocytes # (Auto) 0.4 Thou/mm3 (0.0-0.8); Monocytes % (Auto) 7 % (0-12); Neutrophils # (Auto) 1.9 Thou/mm3 (1.8-7.7); Neutrophils % (Auto) 35 % (37-80); Nucleated Red Blood Cell % 0 /100 WBC (0); Platelet Count 234 Thou/mm3 (140-440); RDW Standard Deviation 38.9 fL (35.1-43.9); White Blood Count 5.5 Thou/mm3 (3.8-10.6)
[2024-03-25] MEDS: GABAPENTIN 300 MG CAPSULE PO ×3 (05:52→22:14)
[2024-03-25] MEDS: HEPARIN SOD INJ 5000 UNIT/ML VIAL SC ×3 (05:53→22:15)
[2024-03-25] MEDS: METOCLOPRAMIDE INJ 5 MG/ML VIAL 2 ML 2.5 MG IVP (06:05)
[2024-03-25 06:27] LABS: Anion Gap 8 (7-16); BUN/Creatinine Ratio 14 Ratio (12-20); Blood Urea Nitrogen 13 mg/dL (9-23); Calcium 9.7 mg/dL (8.3-10.6); Carbon Dioxide 25.2 mMol/L (20.0-31.0); Chloride 107 mMol/L (98-107); Creatinine (Component) 0.9 mg/dL (0.6-1.3); Estimated Creatinine Clearance 125.5 mL/min (>60); Glucose 110 mg/dL (74-106); Osmolality,Calculated 280 (275-295); Potassium 4.1 mMol/L (3.4-5.1); Sodium 140 mMol/L (136-145); eGFR > 60 See Note
[2024-03-25 07:18] VITALS: BP 138/89; PULSE 79; RESP 18; TEMP 36.1; O2SAT 98
[2024-03-25 08:19] VITALS: BP 138/89; PULSE 79
[2024-03-25] MEDS: DOXYCYCLINE 100 MG TABLET PO ×2 (08:19→20:17)
[2024-03-25] MEDS: Lisinopril 20 MG TABLET 40 MG PO (08:19)
[2024-03-25] MEDS: ASPIRIN EC 81 MG TABEC PO (08:19)
[2024-03-25] MEDS: cefTRIAXone/D5w 1gm IV premix 50 ML IV (08:20)
[2024-03-25] MEDS: LACTULOSE SYRUP 20 GM/30 ML UDC 10 GM PO ×3 (08:30→22:15)
[2024-03-25] MEDS: INSULIN GLARGINE (Lantus) 5 UNIT/0.05 ML (PER 5 UNITS) 40 UNIT SC (08:50)
--- NOTE | 2024-03-25 10:53 | ESPR_ITS ---
<Statement entered by Tayler Vaughan MD - 03/25/24 16:33> Patient was seen and examined at bedside. He reported subjective fever and mild pain in his foot. His labs are within normal limit ESR 28, CRP 0.4. Blood cultures for the past 24 hours is negative patient on doxycycline and Rocephin. MRI confirmed that the patient has right medial cuneiform osteomyelitis. We consulted Dr Bal and he recommended to continue the IV antibiotics Rocephin and doxycycline for 6 weeks from the day of admission this time as we do not have a positive culture and sensitivity to guide our treatment. General surgeon recommended no surgical intervention and he also suggested to consult orthopedic surgeon. We tried to reach out to Dr. Blake many attempts were done however there was no response. We are waiting for authorization for home with home health for IV antibiotics as soon as we get positive response will place PICC line for the patient and discharge. - Patient's plan and care discussed with my attending, Dr. Sandra Vaughan MD Internal Medicine PGY-2 Documentation for date of: 03/25/24 Subjective Subjective Interval history: Pt examined by bedside today, reports he is doing okay. Says his R foot pain is doing better. Says that he was able to get in contact with his insurance company and it will be active on April 09. No other complaints at this time. Exam Vital Signs Temp Pulse Resp BP Pulse Ox O2 Del Method 97 F 79 18 138/89 H 98 Room Air 03/25/24 07:18 03/25/24 08:19 03/25/24 07:18 03/25/24 08:19 03/25/24 07:18 03/25/24 07:18 Narrative Exam General: AAOx3, NAD, HEENT: Moist mucous membranes, conjunctiva clear, EOMI, PERRLA, Cardiovascular: S1, S2, radial pulses +2 bilat, RRR Pulmonary: CTAB bilat no cough, no wheezing GI: No tenderness to light or deep palpitation, abdomen soft, bowel sounds present Extremities: No presence of trace or pitting edema in lower extremities bilaterally, dorsalis pedis pulses +2 bilaterally. Presence of previous partial of R foot (half of foot is amputated). Ulcer present on R dorsal foot, open wound with no active drainage at this time, covered with dressing. Presence of dressing of lateral L forefoot. Presence of previous TMAs of L foot. Neuro: AAOx3, no focal motor or sensory deficits in the UE or LE bilat Psych: Good judgement, thought and behavior. Cooperative Objective Labs 03/25/24 04:49 03/25/24 04:49 Labs: Laboratory Results - last 24 hr 03/24/24 03/25/24 04:54 04:49 WBC 5.5 RBC 5.00 Hgb 14.0 Hct 42.8 MCV 86 MCH 28.0 MCHC 32.7 RDW Std Deviation 38.9 Plt Count 234 Neut % (Auto) 35 L Lymph % (Auto) 54 H [place] % (Auto) 7 Eos % (Auto) 4 Baso % (Auto) 1 Neut # (Auto) 1.9 Lymph # (Auto) 2.9 [place] # (Auto) 0.4 Eos # (Auto) 0.2 Baso # (Auto) 0.0 Immature Gran # (Auto) 0.01 H Absolute Nucleated RBC 0.00 Immature Gran % 0 Nucleated RBC % 0 ESR 28 H Sodium 140 Potassium 4.1 Chloride 107 Carbon Dioxide 25.2 Anion Gap 8 BUN 13 Creatinine 0.9 Estim Creat Clear Calc 125.5 eGFR > 60 BUN/Creatinine Ratio 14 Glucose 110 H Calculated Osmolality 280 Calcium 9.7 C-Reactive Prot, Quant < 0.4 Quality Measures Quality Measures none Assessment & Plan Assessment Current Active Medications: Generic Name Dose Route Start Last Admin Trade Name Freq PRN Reason Stop Dose Admin Hydrocodone Bitart/Acetaminophen 1 tab 03/23/24 20:20 03/24/24 20:18 Hydrocodone/Apap 5/325 Tablet PO 03/28/24 20:19 1 tab Q4HR PRN Administration Pain 4-10 Aspirin 81 mg 03/24/24 09:00 03/25/24 08:19 Aspirin Ec 81 Mg Tabec PO 04/23/24 08:59 81 mg QDAY BRODY Administration Dextrose 25 ml 03/23/24 20:18 Dextrose 50%-Water Inj 50 Ml Syringe IV 04/22/24 20:17 Q15MIN PRN BG 50-70 responsive npo pt Dextrose 50 ml 03/23/24 20:18 Dextrose 50%-Water Inj 50 Ml Syringe IV 04/22/24 20:17 Q15MIN PRN BG <50 OR BG <70 & pt unresponsive Doxycycline Hyclate 100 mg 03/24/24 21:00 03/25/24 08:19 Doxycycline 100 Mg Tablet PO 04/23/24 12:00 100 mg BID BRODY Administration Gabapentin 300 mg 03/23/24 22:00 03/25/24 05:52 Gabapentin 300 Mg Capsule PO 04/22/24 21:59 300 mg TID BRODY Administration Heparin Sodium (Porcine) 5,000 unit 03/23/24 22:00 03/25/24 05:53 Heparin Sod Inj 5000 Unit/Ml Vial SC 04/06/24 21:59 5,000 unit Q8HR BRODY Administration Ceftriaxone Sodium/Dextrose 50 mls @ 100 mls/hr 03/23/24 20:17 03/25/24 08:50 Rocephin/D5w 1gm Iv Premix IV 03/30/24 20:16 Infused QDAY BRODY Infusion Insulin Glargine 40 unit 03/24/24 09:00 03/25/24 08:50 Insulin Glargine (Lantus) 5 Unit/0.05 Ml (Per 5 Units) SC 04/23/24 08:59 40 unit QDAY BRODY Administration Insulin Human Lispro 0 unit 03/23/24 21:00 03/25/24 07:29 Insulin Lispro (Admelog) 1 Unit/0.01 Ml Unit SC 04/22/24 20:59 Not Given ACHS BRODY Protocol Lactulose 10 gm 03/23/24 20:20 03/25/24 08:30 Lactulose Syrup 20 Gm/30 Ml Udc PO 04/22/24 21:59 10 gm TID PRN Administration constipation Protocol Lisinopril 40 mg 03/25/24 09:00 03/25/24 08:19 Lisinopril 20 Mg Tablet PO 04/24/24 08:59 40 mg QDAY BRODY Administration Metoclopramide HCl 2.5 mg 03/23/24 22:13 03/25/24 06:05 Metoclopramide Inj 5 Mg/Ml Vial 2 Ml IVP 04/22/24 22:14 2.5 mg Q8HR PRN Administration gastroparesis Protocol Ondansetron HCl 4 mg 03/23/24 20:15 Ondansetron Inj 2 Mg/Ml Inj 2 Ml IV 04/22/24 20:14 Q6H PRN NAUSEA OR VOMITING Protocol Plan Assessment 54-year-old male with recent admission for osteomyelitis who presented with subjective fevers, generalized weakness, and worsening pain over his left foot. He was found to have worsening osteomyelitis. Plan: #Osteomyelitis, R foot, acute on chronic #History of osteomyelitis of left foot #History of diabetic ulcers #History of TMA #History of amputations of foot #Diabetic foot ulcer, right Patient with history of multiple amputations secondary to diabetic foot ulcer, uncontrolled diabetes Not septic at this time X-ray of the foot shows worsening osteomyelitis on the right Foot appears to have a dry gangrene He was recently admitted and discharged on oral antibiotics Patient was recently here for OM of left foot MRI of R foot says Early OM including distal cortical margins medial and mid cuneiforms R foot has partial amputation of foot at this time General Surgery, Dr. Mcfarland, recommends either orthopedic consult or to continue abx and that there is no surgical intervention that he can perform at this point Will consider having orthopedic looking at pt or proceeding with abx treatment ID had seen pt and had said pt may need to continue with abx with a possible change in date if pt had not taken abx as directed Spoke w/ ID, for abx, will need to restart date, 6 weeks from today, which will be 05/06/24 to complete Rocephin (2g once a day) and Doxycycline (100 BID every day) Will hold on PICC insertion at this time, will confirm with social work once we get insurance approval Contacted Ortho, unable to reach at this time Plan: Will cover empirically with IV Rocephin and doxycycline Send repeat blood cultures Consult ID. Appreciate recommendations General Surgery, Dr. Coy consulted *Ortho consult Continue with antibiotics #Type 2 diabetes, insulin-dependent, uncontrolled On home insulin, A1C 9.3 Plan: Resume insulin Lantus 40 units daily plus sliding scale insulin. Adjust based on the fingersticks. Monitor fingersticks ACHS. Resume home gabapentin for neuropathy Reglan as needed for nausea/possible gastroparesis #Coronary artery disease Patient explains that he has chest pain upon exertion Extensive family history of coronary artery disease, sister with stent, mother with heart disease Plan: Continue home aspirin #History of hypertriglyceridemia Was in 200s on March 06 Plan: ? Stable #Health Maintenance Disposition: MedSurg DVT prophylaxis: Heparin GI prophylaxis: None at this time Diet: Carb consistent CODE STATUS: Full Patient seen and care discussed with my senior resident, Dr. Clement, and my attending physician, Dr. Sandra Mcghee, PGY-1 Attending Provider Attestation/Addendum I have discussed and was present for the essential components of the history, physical examination, diagnosis, and treatment plan with the resident. I agree with the patient's care as documented by the resident and amended herein by me. Irvin Flores, DO. Patient seen and evaluated in the AM. 54-year-old male with a significant past medical history of osteomyelitis and prior amputations, most recently of his left foot, was admitted for a right foot wound and pain. Overnight, vital signs stable, patient afebrile, MRI demonstrating early osteomyelitis of the cuneiforms. General surgery recommended orthopedic consult, Dr. Steiner was consulted, appreciate recommendations. Infectious disease also consulted, we will start IV antibiotics today, doxycycline and ceftriaxone for 6 weeks from 03/24/24. Patient also has complaints of constipation today hence bowel regimen placed, will continue to monitor closely. Although this document has been carefully reviewed, there may still be some phonetic and other typographical errors. These errors are purely grammatical due to imperfections in the software program and should not be construed in any way to compromise the substance of the patient's medical care during this visit.
[2024-03-25 11:14] VITALS: BP 138/85; PULSE 94; RESP 18; TEMP 36.5; O2SAT 98
[2024-03-25] MEDS: MAGNESIUM CITRATE 300 ML BTL PO (12:22)
[2024-03-25] MEDS: POLYETHYLENE GLYCOL 17 GM PACKET PO (12:23)
[2024-03-25] MEDS: HYDROcodone/APAP 5/325 TABLET 1 TAB PO ×2 (13:23→20:17)
--- NOTE | 2024-03-25 13:44 | PC.SS ---
SS spoke to Lala at [facility] to setup appointment. Appointment is March 30, 2024 at 9:[address]am with Dr. Vaughan. SS provided pt with [facility] with appointment information.
[2024-03-25 14:17] LABS: Basophils (Manual) 4 % (0-2); Eosinophils (Manual) 4 % (0-4); Lymphocytes (Manual) 48 % (20-44); Monocytes (Manual) 6 % (2-9); Neutrophils (Manual) 38 % (50-70)
[2024-03-25 14:18] LABS: Atypical Lymphs 2+
--- NOTE | 2024-03-25 15:02 | CHAP ---
09:30 AM Visited by spiritual care volunteer Provided prayer for Patient.
--- NOTE | 2024-03-25 15:37 | PC.SS ---
SS has communicated with Lawanda at [facility] and Danielle from [facility] who explained they are unable to accepted [facility] for IV antibiotics. SS has informed [facility] [employer] physician is ordering HH. Pt is requiring IV antibiotic 2grm Rocephin 1Xday until May 05, 2024. SS has sent inquiry to the local SNF.
[2024-03-25 16:00] VITALS: BP 116/77; PULSE 93; RESP 18; TEMP 36.2; O2SAT 97
--- NOTE | 2024-03-25 16:02 | PC.CC ---
HH order, for IV antibiotics. Inquiry created in [facility], referral needs to be sent.
[2024-03-25] MEDS: cefTRIAXone 1,000 MG in SODIUM CHLORIDE 0.9% (P) 50 ML 100 MG IV (17:11)
--- NOTE | 2024-03-25 17:14 | PC.NURSE ---
Followed up with patient on home medication reconciliation. Patient stated daughter has been unable to bring home medications to update chart.
--- NOTE | 2024-03-25 18:36 | PC.NURSE ---
Dr Blake notified of orthopedic consult for patient.
[2024-03-25 20:00] VITALS: BP 139/83; PULSE 96; RESP 18; TEMP 36.4; O2SAT 99
--- NOTE | 2024-03-25 22:14 | ESCONSULT_ITS ---
HPI Consult details Reason for consultation narrative: Ulcer right and left foot History of present illness: Patient seen recently admitted and was diagnosed as having osteomyelitis of the left fifth metatarsal. I looked for imaging and the imaging seems to be right lower extremity. Other admission was for pain on and swelling left foot. Big problem at the present time seems to be the right foot. Has had some GI complications from oral antibiotics. He was discharged from the hospital without a PICC line because his [facility] was in the [facility] and he was discharged on oral antibiotics. He came back again with swelling of and very minimal swelling left foot. Past Medical History Past Medical History NEUROLOGIC: Positive Neurological Disorders (diabetic neuropathy) and Head Trauma (fall 3 mons ago- bruising, knots on back of head, seeing double- okay now.) CARDIAC: Positive Peripheral Vascular Disease, Hypercholesterolemia and Hypertension; Negative Cardiac Disorders or Congestive Heart Failure RESPIRATORY: Negative Respiratory Disorders, Chronic Obstructive Pulmonary Disease (COPD) or Asthma GASTROINTESTINAL: Negative Gastrointestinal Bleed, Ulcer or Hemorrhoids GENITOURINARY: Negative Renal Disease MUSCULOSKELETAL: Positive Musculoskeletal Disorders and Osteomyelitis (bilateral feet); Negative Arthritis ENT: Positive Head Trauma (fall 3 mons ago- bruising, knots on back of head, seeing double- okay now.) ENDOCRINE: Positive Endocrine Disorders and Diabetes Mellitus Type 2; Negative Diabetes Mellitus Type 1 HEMATOLOGIC: Negative Blood Disorders or Sickle Cell Disease PSYCHO/SOCIAL: Positive Anxiety OTHER HISTORY: Positive Falls (hit back of head, went to icu.) and MRSA (foot right); Negative Blood Transfusions or Anesthesia Reactions Family History FAMILY HISTORY: Positive Family Cancer (mom- motuth cancer. dad- lung cancer.); Negative Family Psychiatric Problems, Family Respiratory Disorders, Family Cardiac Disorders, Family Gastrointestinal Problems or Family Anesthesia Reaction Surgical History SURGICAL: Positive Amputation; Negative Cardiac Surgery Social History SMOKING STATUS: Never smoker SECOND HAND EXPOSURE: No (5 cig/day x10 yrs- QUIT 15 yrs ago) SUBSTANCE USE: does not use Meds Home Medications and Allergies Home Medications ?Medication ?Instructions ?Recorded ?Confirmed ?Type gabapentin 300 mg capsule 300 mg PO TID 09/27/17 03/06/24 History lactulose 20 gram/30 mL oral 30 ml PO EVERYOTHERDAY 09/27/17 03/05/24 History solution Allergies Allergy/AdvReac Type Severity Reaction Status Date / Time vancomycin Allergy Severe Swelling Verified 03/23/24 17:26 of Lip/Tongue/Throat Exam Vital Signs Temp Pulse Resp BP Pulse Ox O2 Del Method 97.6 F 96 18 139/83 H 99 Room Air 03/25/24 20:00 03/25/24 20:00 03/25/24 20:00 03/25/24 20:00 03/25/24 20:00 03/25/24 20:00 Afebrile Narrative Exam Patient has callus and superficial ulcer right foot. He has had a tarsal- metatarsal disarticulation for previous infections right foot. Has small ulcer lateral aspect of the left foot in the area base of fifth metatarsal. Really does not have any significant swelling that we see with cellulitis osteomyelitis either right or left foot. Has ulceration plantar aspect right foot. Results - Ortho Labs 03/25/24 04:49 03/25/24 04:49 Labs: Short CBC 03/25/24 Range/Units 04:49 WBC 5.5 (3.8-10.6) Thou/mm3 Hgb 14.0 (13.5-16.0) g/dL Hct 42.8 (41.0-53.0) % Plt Count 234 (140-440) Thou/mm3 BMP 03/25/24 04:49 Sodium 140 Potassium 4.1 Chloride 107 Carbon Dioxide 25.2 BUN 13 Creatinine 0.9 Glucose 110 H Calcium 9.7 White count 5500. Will repeat CBC CRP ESR in a.m. Assessment & Plan Additional Assessment Additional comments: Small ulcer lateral aspect of left foot. Small plantar ulcer right foot. No dramatic pus I do not see a sinus tract. I looked at the MRI scan I do not think he has osteomyelitis of the cuneiforms. We do not have a recent MRI scan left foot that I can see. Repeat MRI scan left foot Plan I am not sure any cultures would be of any benefit. Again his feet do not look cellulitic he does appear to have a plantar callus. His blood sugars apparently have been less and ideally controlled. He has had an elevated glycohemoglobin. Looking forward to having wound care consultation. Looks like he will need serial debridement. Looks like he will need to be followed in wound care clinic. I told him his next amputation will be most likely BKA. I told him that those are very effective and the stumps are easily cared for. I would anticipate that he is going to have further episodes of breakdown both of the left and right foot if not OCD with his feet care. Would be nice to get a podiatry consult. He said his prostheses were currently made in [place] and seem to accelerate skin breakdown. It would be nice to be brought in the prostheses so we could take a look at him. Looking forward to seeing what Dr Bal recommends from an ideal perspective. I am going to see if I can get Dr. Ricardo to come up and take a look at the foot and then correlate with MR scan. Will check to see if he has had an MRI scan of left foot.
[2024-03-26] VITALS (11 sets, daily range): BP systolic 105–138; BP diastolic 63–89; PULSE 68–99; RESP 15–20; TEMP 36.1–36.7; O2SAT 97–100
--- NOTE | 2024-03-26 | XR_ITS ---
Examination: Ultrasound-guided needle placement right brachial vein. Dual-lumen central line placement (PICC line). Fluoroscopy AP chest, portable, single view Exam date and time:March 26, 2024 1558 hours INDICATIONS: Need for long-term intravenous antibiotic therapy A timeout was completed verifying correct patient, procedure, site, positioning Informed consent provided Technique: The patient's site was prepped and draped in sterile fashion. Maximum Sterile Barrier Technique used including cap, mask, sterile gown, sterile gloves, and sterile full body drape. If ultrasound technique used: sterile gel and sterile probe covers. Hand Hygiene performed using proper scrub, soap and water, or alcohol-based hand rub. Site right portable apparatus utilized for confirming patency of the right brachial vein Utilizing ultrasonographic guidance successful 21-gauge needle puncture into the right brachial vein Ultrasound images recorded and stored. 5 cc 1% lidocaine administered for local anesthetic. Successful micropuncture with a 21-gauge needle is performed. 0.18 wire guide is then introduced into the SVC under fluoroscopic guidance. Dual-lumen catheter dilator is then introduced, followed by the catheter in the SVC and proper position under fluoroscopic guidance. Successful aspiration of blood and flushing with heparinized saline is then performed in the 2 venous limbs. The catheter sutured in place. Findings: Under fluoroscopy, the tip of the catheter is in good position in the vena cava. Portable chest x-ray, post line placement is ordered. Estimated blood loss 3 cc The patient tolerated the procedure well and was in stable and satisfactory condition at completion of the procedure Impression: Successful ultrasound-guided needle placement right brachial vein Successful placement of dual lumen central line, percutaneous Fluoroscopy 0.1 minute radiation dose 4.47 milligray 1 spot fluoroscopic chest film. AP chest completion procedure demonstrates satisfactory position central line. May use central line.
[2024-03-26] MEDS: LACTULOSE SYRUP 20 GM/30 ML UDC 10 GM PO ×3 (05:12→22:40)
[2024-03-26] MEDS: HEPARIN SOD INJ 5000 UNIT/ML VIAL SC ×2 (05:13→22:43)
[2024-03-26] MEDS: GABAPENTIN 300 MG CAPSULE PO ×3 (05:13→22:40)
[2024-03-26] MEDS: HYDROcodone/APAP 5/325 TABLET 1 TAB PO ×3 (05:18→19:50)
[2024-03-26 05:56] LABS: Basophils % (Auto) 1 % (0-2.5); Eosinophils # (Auto) 0.3 Thou/mm3 (0.0-0.5); Eosinophils % (Auto) 4 % (0-10); Hematocrit 44.2 % (41.0-53.0); Hemoglobin 14.2 g/dL (13.5-16.0); Immature Granulocytes % (Auto) 0 % (0-0); Immature Granulocytes Auto 0.01 Thou/mm3 (0.00-0.00); Lymphocytes # (Auto) 2.5 Thou/mm3 (1.0-4.8); Lymphocytes % (Auto) 41 % (10-50); Mean Corpuscular HGB Conc 32.1 g/dl (31.0-37.0); Mean Corpuscular Hemoglobin 28.1 pg (25.0-35.0); Mean Corpuscular Volume 88 fL (80-100); Monocytes # (Auto) 0.5 Thou/mm3 (0.0-0.8); Monocytes % (Auto) 8 % (0-12); Neutrophils # (Auto) 2.8 Thou/mm3 (1.8-7.7); Neutrophils % (Auto) 47 % (37-80); Nucleated Red Blood Cell % 0 /100 WBC (0); Platelet Count 175 Thou/mm3 (140-440); RDW Standard Deviation 40.9 fL (35.1-43.9); Red Blood Count 5.05 Miln/mm3 (4.50-5.90); White Blood Count 6.1 Thou/mm3 (3.8-10.6)
[2024-03-26 06:34] LABS: Anion Gap 8 (7-16); BUN/Creatinine Ratio 14 Ratio (12-20); Blood Urea Nitrogen 14 mg/dL (9-23); Calcium 9.5 mg/dL (8.3-10.6); Carbon Dioxide 24.3 mMol/L (20.0-31.0); Chloride 107 mMol/L (98-107); Glucose 137 mg/dL (74-106); Magnesium 2.1 mg/dL (1.6-2.6); Osmolality,Calculated 280 (275-295); Phosphorous 3.4 mg/dL (2.4-5.1); Potassium 4.1 mMol/L (3.4-5.1); Sodium 139 mMol/L (136-145); eGFR > 60 See Note
[2024-03-26] MEDS: INSULIN GLARGINE (Lantus) 5 UNIT/0.05 ML (PER 5 UNITS) 40 UNIT SC (07:27)
[2024-03-26] MEDS: INSULIN LISPRO (AdmeLOG) 1 UNIT/0.01 ML UNIT SC ×2 (07:27→22:57)
[2024-03-26 08:16] LABS: Prothrombin Time 11.3 Seconds (9.0-12.2)
[2024-03-26] MEDS: DOXYCYCLINE 100 MG TABLET PO ×2 (08:43→22:40)
[2024-03-26] MEDS: Lisinopril 20 MG TABLET 40 MG PO (08:43)
[2024-03-26] MEDS: cefTRIAXone 2 GM in SODIUM CHLORIDE 0.9% (P) 100 ML IV (08:43)
[2024-03-26] MEDS: ASPIRIN EC 81 MG TABEC PO (08:43)
--- NOTE | 2024-03-26 10:01 | PD.IDPROG ---
Subjective Subjective Interval history: was apparently sent home from ed with po abx at discretion of primary team. back on empiric rx now, all cx neg Exam Vital Signs Temp Pulse Resp BP Pulse Ox O2 Del Method 97.1 F 73 19 138/88 H 97 Room Air 03/26/24 08:00 03/26/24 08:43 03/26/24 08:00 03/26/24 08:43 03/26/24 08:00 03/26/24 08:00 Objective - Internal Medicine Labs 03/26/24 05:02 03/26/24 05:02 Labs: Laboratory Results - last 24 hr 03/25/24 03/26/24 03/26/24 04:49 05:02 07:35 WBC 6.1 RBC 5.05 Hgb 14.2 Hct 44.2 MCV 88 MCH 28.1 MCHC 32.1 RDW Std Deviation 40.9 Plt Count 175 D Neut % (Auto) 47 Lymph % (Auto) 41 [place] % (Auto) 8 Eos % (Auto) 4 Baso % (Auto) 1 Neut # (Auto) 2.8 Lymph # (Auto) 2.5 [place] # (Auto) 0.5 Eos # (Auto) 0.3 Baso # (Auto) 0.0 Immature Gran # (Auto) 0.01 H Absolute Nucleated RBC 0.00 Immature Gran % 0 Neutrophils % (Manual) 38 L Monocytes % (Manual) 6 Eosinophils % (Manual) 4 Basophils % (Manual) 4 H Nucleated RBC % 0 Lymphocytes (Manual) 48 H Atypical Lymphocytes 2+ PT 11.3 INR 1.0 APTT 33.0 Sodium 139 Potassium 4.1 Chloride 107 Carbon Dioxide 24.3 Anion Gap 8 BUN 14 Creatinine 1.0 Estim Creat Clear Calc 113.0 eGFR > 60 BUN/Creatinine Ratio 14 Glucose 137 H Calculated Osmolality 280 Calcium 9.5 Phosphorus 3.4 Magnesium 2.1 Assessment & Plan A&P Narrative osteo of foot. see imaging dm II a1c 9.3 on 03/06 no pvd on arterial doppler from early march 2024 if he has an amputation, then role of abx absent He was seen in Ed on 03/12 but sent home on po. so have to start the 6 weeks iv from the date of admit so will be on rx from 03/23 thru 05/05. will try to see mwf when I am here. no objection to placement for rx. if he failed po before, does not make sense to go back to that again. note that baseline esr/crp currently not that high, but they were higher before. note that procal often neg in focal chronic processes. Time Spent With Patient Time: Total time spent is greater than 50% in coordination of care (as documented) at patient's floor/unit and/or counseling patient:
--- NOTE | 2024-03-26 10:26 | PC.SS ---
Follow up note: Pt will get PICC line today. Pt will be requiring IV antibiotic, Rocephin 2grm 1Xday until May 05, 2024.
--- NOTE | 2024-03-26 10:28 | PC.SS ---
Pt will return home upon d/c with for IV antibiotic.
--- NOTE | 2024-03-26 10:30 | CHAP ---
Patient was visited by the Spiritual Care Volunteer who prayed for them. (Volunteer was in the hospital from 09:15-10:30).
[2024-03-26] MEDS: ASCORBIC ACID 250 MG TABLET 500 MG PO ×2 (13:42→22:40)
[2024-03-26] MEDS: MULTIVITAMIN 15 ML UDC PO (13:42)
[2024-03-26] MEDS: ZINC SULFATE 220 MG CAPSULE PO (13:42)
[2024-03-26] MEDS: LIDOCAINE INJ PF 1% 30 ML VIAL INFL (14:25)
[2024-03-26] MEDS: HEPARIN SOD LOCK SYR 100 UNIT/ML 500 UNIT STFIELD (14:25)
--- NOTE | 2024-03-26 14:29 | PC.CM ---
referral was sent by Al yesterday to agency. I sent referral today to [facility]. Awaiting response. Looks like pt does not have picc line yet.
--- NOTE | 2024-03-26 15:42 | ESPR_ITS ---
<Statement entered by Han Clement MD - 03/26/24 16:39> Patient was seen and examined at the bedside. He had no active concerns and still feels pain in his both lower extremities. He is waiting on insurance authorization. Ortho recommended to perform MRI left knee for osteomyelitis. Dr Bal recommended to continue IV antibiotic ceftriaxone 2 g once a day and doxycycline 100 mg twice daily until May 05, 2024. Patient will receive PICC line for continuation of IV antibiotic therapy for total 6 weeks. All labs and orders were reviewed. I saw and examined the patient, and I agree with current management stated by Dr Taz CRANDALL,PGY1. Plan of care was discussed with the attending physician and resident physician. Disclaimer: Despite multiple revisions, due to the dictation software being used, the document bellow may not be free of grammatical errors including phonetic/typographic errors. However, this does not deter from our commitment to providing health care in the patient's best interest in mind. Dr. Gee MD, PGY 2 Documentation for date of: 03/26/24 Subjective Subjective Interval history: Pt examined at bedside this morning, says he is doing okay, no complaints at this time. He reports having a bowel movement yesterday and he said the magnesium citrate helped him. No other complaints at this time. Exam Vital Signs Temp Pulse Resp BP Pulse Ox O2 Del Method 98.1 F 71 15 127/80 98 Room Air 03/26/24 14:15 03/26/24 14:59 03/26/24 14:59 03/26/24 14:59 03/26/24 14:59 03/26/24 14:59 Narrative Exam General: AAOx3, NAD, HEENT: Moist mucous membranes, conjunctiva clear, EOMI, PERRLA, Cardiovascular: S1, S2, radial pulses +2 bilat, RRR Pulmonary: CTAB bilat no cough, no wheezing GI: No tenderness to light or deep palpitation, abdomen soft, bowel sounds present Extremities: No presence of trace or pitting edema in lower extremities bilaterally, dorsalis pedis pulses +2 bilaterally. Presence of previous partial of R foot (half of foot is amputated). Ulcer present on R dorsal foot, open wound with no active drainage at this time, covered with dressing. Presence of dressing of lateral L forefoot. Presence of previous TMAs of L foot. Neuro: AAOx3, no focal motor or sensory deficits in the UE or LE bilat Psych: Good judgement, thought and behavior. Cooperative Objective Labs 03/27/24 06:13 03/27/24 06:13 Labs: Laboratory Results - last 24 hr 03/26/24 03/26/24 05:02 07:35 WBC 6.1 RBC 5.05 Hgb 14.2 Hct 44.2 MCV 88 MCH 28.1 MCHC 32.1 RDW Std Deviation 40.9 Plt Count 175 D Neut % (Auto) 47 Lymph % (Auto) 41 [place] % (Auto) 8 Eos % (Auto) 4 Baso % (Auto) 1 Neut # (Auto) 2.8 Lymph # (Auto) 2.5 [place] # (Auto) 0.5 Eos # (Auto) 0.3 Baso # (Auto) 0.0 Immature Gran # (Auto) 0.01 H Absolute Nucleated RBC 0.00 Immature Gran % 0 Nucleated RBC % 0 PT 11.3 INR 1.0 APTT 33.0 Sodium 139 Potassium 4.1 Chloride 107 Carbon Dioxide 24.3 Anion Gap 8 BUN 14 Creatinine 1.0 Estim Creat Clear Calc 113.0 eGFR > 60 BUN/Creatinine Ratio 14 Glucose 137 H Calculated Osmolality 280 Calcium 9.5 Phosphorus 3.4 Magnesium 2.1 Quality Measures Quality Measures none Assessment & Plan Assessment Current Active Medications: Generic Name Dose Route Start Last Admin Trade Name Freq PRN Reason Stop Dose Admin Hydrocodone Bitart/Acetaminophen 1 tab 03/23/24 20:20 03/26/24 15:25 Hydrocodone/Apap 5/325 Tablet PO 03/28/24 20:19 1 tab Q4HR PRN Administration Pain 4-10 Ascorbic Acid 500 mg 03/26/24 13:45 03/26/24 13:42 Ascorbic Acid 250 Mg Tablet PO 04/25/24 13:44 500 mg BID BRODY Administration Aspirin 81 mg 03/24/24 09:00 03/26/24 08:43 Aspirin Ec 81 Mg Tabec PO 04/23/24 08:59 81 mg QDAY BRODY Administration Dextrose 25 ml 03/23/24 20:18 Dextrose 50%-Water Inj 50 Ml Syringe IV 04/22/24 20:17 Q15MIN PRN BG 50-70 responsive npo pt Dextrose 50 ml 03/23/24 20:18 Dextrose 50%-Water Inj 50 Ml Syringe IV 04/22/24 20:17 Q15MIN PRN BG <50 OR BG <70 & pt unresponsive Doxycycline Hyclate 100 mg 03/24/24 21:00 03/26/24 08:43 Doxycycline 100 Mg Tablet PO 05/06/24 12:00 100 mg BID BRODY Administration Gabapentin 300 mg 03/23/24 22:00 03/26/24 13:42 Gabapentin 300 Mg Capsule PO 04/22/24 21:59 300 mg TID BRODY Administration Heparin Sodium (Porcine) 5,000 unit 03/23/24 22:00 03/26/24 13:22 Heparin Sod Inj 5000 Unit/Ml Vial SC 04/06/24 21:59 Not Given Q8HR BRODY Ceftriaxone Sodium 2 gm/ 100 mls @ 200 mls/hr 03/26/24 09:00 03/26/24 08:43 Sodium Chloride IV 04/02/24 08:59 200 mls/hr QDAY BRODY Administration Insulin Glargine 40 unit 03/24/24 09:00 03/26/24 07:27 Insulin Glargine (Lantus) 5 Unit/0.05 Ml (Per 5 Units) SC 04/23/24 08:59 40 unit QDAY BRODY Administration Insulin Human Lispro 0 unit 03/23/24 21:00 03/26/24 11:56 Insulin Lispro (Admelog) 1 Unit/0.01 Ml Unit SC 04/22/24 20:59 Not Given ACHS [facility] Protocol Lactulose 10 gm 03/25/24 11:30 03/26/24 13:42 Lactulose Syrup 20 Gm/30 Ml Udc PO 04/24/24 11:29 10 gm TID BRODY Administration Protocol Lisinopril 40 mg 03/25/24 09:00 03/26/24 08:43 Lisinopril 20 Mg Tablet PO 04/24/24 08:59 40 mg QDAY BRODY Administration Metoclopramide HCl 2.5 mg 03/26/24 14:36 Metoclopramide Inj 5 Mg/Ml Vial 2 Ml IVP 04/22/24 22:14 Q8HR PRN NAUSEA OR VOMITING Protocol Multivitamins/Minerals 15 ml 03/26/24 13:45 03/26/24 13:42 Multivitamin 15 Ml Udc PO 04/25/24 13:44 15 ml QDAY BRODY Administration Ondansetron HCl 4 mg 03/23/24 20:15 Ondansetron Inj 2 Mg/Ml Inj 2 Ml IV 04/22/24 20:14 Q6H PRN NAUSEA OR VOMITING Protocol Zinc Sulfate 220 mg 03/26/24 13:45 03/26/24 13:42 Zinc Sulfate 220 Mg Capsule PO 04/09/24 13:44 220 mg QDAY BRODY Administration Plan Assessment 54-year-old male with recent admission for osteomyelitis who presented with subjective fevers, generalized weakness, and worsening pain over his left foot. He was found to have worsening osteomyelitis. Plan: #Osteomyelitis, R foot, acute on chronic #History of osteomyelitis of left foot #History of diabetic ulcers #History of TMA #History of amputations of foot #Diabetic foot ulcer, right Patient with history of multiple amputations secondary to diabetic foot ulcer, uncontrolled diabetes Not septic at this time X-ray of the foot shows worsening osteomyelitis on the right Foot appears to have a dry gangrene He was recently admitted and discharged on oral antibiotics Patient was recently here for OM of left foot MRI of R foot says Early OM including distal cortical margins medial and mid cuneiforms R foot has partial amputation of foot at this time General Surgery, Dr. Mcfarland, recommends either orthopedic consult or to continue abx and that there is no surgical intervention that he can perform at this point Will consider having orthopedic looking at pt or proceeding with abx treatment ID had seen pt and had said pt may need to continue with abx with a possible change in date if pt had not taken abx as directed Spoke w/ ID, for abx, will need to restart date, 6 weeks from today, which will be 05/06/24 to complete Rocephin (2g once a day) and Doxycycline (100 BID every day) Contacted Ortho, unable to reach at this time Contacted Ortho once more, unable to reach this time 03/26 Ortho, Dr. Blake dropped note recommending MRI of L foot, recommends serial debridement, and may have Dr. Ricardo see pt as well Pt will need IV abx 6 weeks until 05/05 BC NG2D Plan: Will cover empirically with IV Rocephin and doxycycline Consult ID. Appreciate recommendations General Surgery, Dr. Zbigniew benavidez Ortho consulted Continue with antibiotics #Type 2 diabetes, insulin-dependent, uncontrolled On home insulin, A1C 9.3 Plan: Resume insulin Lantus 40 units daily plus sliding scale insulin. Adjust based on the fingersticks. Monitor fingersticks ACHS. Resume home gabapentin for neuropathy Reglan as needed for nausea/possible gastroparesis #Coronary artery disease Patient explains that he has chest pain upon exertion Extensive family history of coronary artery disease, sister with stent, mother with heart disease Plan: Continue home aspirin #History of hypertriglyceridemia Was in 200s on March 06 Plan: ? Stable #Health Maintenance Disposition: MedSurg DVT prophylaxis: Heparin GI prophylaxis: None at this time Diet: Carb consistent CODE STATUS: Full Patient seen and care discussed with my senior resident, Dr. Clement, and my attending physician, Dr. Sandra Mcghee, PGY-1 Attending Provider Attestation/Addendum I have discussed and was present for the essential components of the history, physical examination, diagnosis, and treatment plan with the resident. I agree with the patient's care as documented by the resident and amended herein by me. Irvin Flores DO. Patient seen and evaluated this AM. Vital signs stable, patient afebrile overnight. Patient presently on ceftriaxone and doxycycline which she will continue through 05/05. Orthopedic surgery consulted, appreciate recommendations. Home health orders placed for IV antibiotics. Although this document has been carefully reviewed, there may still be some phonetic and other typographical errors. These errors are purely grammatical due to imperfections in the software program and should not be construed in any way to compromise the substance of the patient's medical care during this visit.
[2024-03-26] MEDS: SOD HYPOCHLORITE 1/4 STR 473 ML BTL IRRIG (16:04)
--- NOTE | 2024-03-26 16:05 | PC.WOUND ---
Assisted Dr. Blake with bedside I&D after appropriate consent received than pre-medicated with rx. Patient tolerated well, no c/o pain or discomfort. No bleeding post procedure. Orders received from Dr. Steiner to include dakins with therahoney dressing changes. Will continue to follow
--- NOTE | 2024-03-26 16:25 | PC.SS ---
SS spoke to Lana from [facility] who states they are booked for the weekend and are unable to give pt antibiotic until Friday. Lana explained for pt to receive IV antibiotic Friday at the hospital before d/c and they will follow up with pt to recieve next IV antibiotic on Friday. Dr. Flores is aware.
--- NOTE | 2024-03-26 16:41 | ESOP_ITS ---
Date of Procedure 03/26/24 Pre Op Diagnosis Infected callus right foot Hypertrophic callus left foot Post Op Diagnosis Infected callus plantar aspect right foot Hypertrophic callus left foot Procedure Sharp debridement of infected callus right foot Sharp debridement of callus left foot not infected Findings Hypertropic callus right foot Hypertrophic callus left foot Procedure Description Patient was seen in his room with the assistance of the wound care nurse The right foot was carefully prepped with Betadine patient had very hypertrophic loose callus plantar aspect right foot in the area where he had tarsal metatarsal amputation 5 years ago. He was in a orthotic crafted by operations supervisor [facility] and it because chronic irritation plantar skin with recent cellulitis. The callus was sharply debrided with a curette there was absolutely no evidence of sinus track in the center of the ulcer was new skin. No granulation tissue very thick callus was removed sharply until capillary bleeding was established. After this was done attention was directed to the hypertrophic callus lateral aspect of left foot and after this area was carefully prepped with Betadine it was sharply debrided with a new curette back to slight capillary bleeding with the callus being removed completely. It was also dressed with Dakin's 4 x 4's and 4 inch sterile control. Anesthesia none Drains None Implants None Pathology / specimen Pathology comment: None IVF Infused 0 Urine Output 0 Estimated Blood Loss 1 Condition Stable Disposition floor Surgeon Troy Blake MD
[2024-03-27] VITALS (7 sets, daily range): BP systolic 101–159; BP diastolic 64–90; PULSE 65–97; RESP 16–20; TEMP 36.4–37.2; O2SAT 95–100
--- NOTE | 2024-03-27 | XR_ITS ---
Examination: MRI left foot without intravenous contrast Date and time of exam: March 27, 2024 1204 hrs. Comparison 03/05/2024 Indications: Wound in the midfoot forefoot area with difficulty walking 2 weeks, history left fifth toe amputation August 2023 Technique: Multiple axial sagittal and coronal images of the left foot have been obtained with the Siemens high-resolution 1.5 Tory MRI scanner. Images obtained include T2-weighted fat-suppressed sagittal sections, TR 3500, TE 46, T2 weighted coronal fat suppressed images, TR 3050, TE 84, T2-weighted transverse fat suppressed images, TR 3260, TE 63, proton density transverse images, TR 4720 TE 46, and T1 weighted coronal images, TR 560, TE 13. Findings: There is cortical bone destruction at the amputation site fifth metatarsal but erosion is less compared to the 03/05/2024 exam No new areas of erosion No soft tissue fluid-filled abscess Impression: Cortical bone erosion at the amputation site fifth metatarsal but erosion is less compared to the 03/05/2024 exam
[2024-03-27] MEDS: HYDROcodone/APAP 5/325 TABLET 1 TAB PO ×2 (00:33→19:57)
[2024-03-27] MEDS: GABAPENTIN 300 MG CAPSULE PO ×3 (05:41→21:13)
[2024-03-27] MEDS: LACTULOSE SYRUP 20 GM/30 ML UDC 10 GM PO ×3 (05:41→21:12)
[2024-03-27] MEDS: HEPARIN SOD INJ 5000 UNIT/ML VIAL SC ×3 (05:42→21:12)
[2024-03-27 07:11] LABS: Basophils % (Auto) 1 % (0-2.5); Eosinophils # (Auto) 0.4 Thou/mm3 (0.0-0.5); Eosinophils % (Auto) 6 % (0-10); Hematocrit 43.4 % (41.0-53.0); Hemoglobin 14.4 g/dL (13.5-16.0); Immature Granulocytes % (Auto) 0 % (0-0); Immature Granulocytes Auto 0.01 Thou/mm3 (0.00-0.00); Lymphocytes # (Auto) 2.6 Thou/mm3 (1.0-4.8); Lymphocytes % (Auto) 41 % (10-50); Mean Corpuscular HGB Conc 33.2 g/dl (31.0-37.0); Mean Corpuscular Hemoglobin 28.7 pg (25.0-35.0); Mean Corpuscular Volume 87 fL (80-100); Monocytes # (Auto) 0.4 Thou/mm3 (0.0-0.8); Monocytes % (Auto) 6 % (0-12); Neutrophils # (Auto) 2.9 Thou/mm3 (1.8-7.7); Neutrophils % (Auto) 46 % (37-80); Nucleated Red Blood Cell % 0 /100 WBC (0); Platelet Count 202 Thou/mm3 (140-440); RDW Standard Deviation 39.7 fL (35.1-43.9); Red Blood Count 5.02 Miln/mm3 (4.50-5.90); White Blood Count 6.3 Thou/mm3 (3.8-10.6)
[2024-03-27 07:33] LABS: Anion Gap 7 (7-16); BUN/Creatinine Ratio 23 Ratio (12-20); Blood Urea Nitrogen 21 mg/dL (9-23); Calcium 9.7 mg/dL (8.3-10.6); Carbon Dioxide 23.8 mMol/L (20.0-31.0); Chloride 106 mMol/L (98-107); Creatinine (Component) 0.9 mg/dL (0.6-1.3); Estimated Creatinine Clearance 125.5 mL/min (>60); Glucose 128 mg/dL (74-106); Osmolality,Calculated 278 (275-295); Potassium 3.8 mMol/L (3.4-5.1); Sodium 137 mMol/L (136-145); eGFR > 60 See Note
[2024-03-27] MEDS: ZINC SULFATE 220 MG CAPSULE PO (08:08)
[2024-03-27] MEDS: Lisinopril 20 MG TABLET 40 MG PO (08:08)
[2024-03-27] MEDS: ASPIRIN EC 81 MG TABEC PO (08:08)
[2024-03-27] MEDS: DOXYCYCLINE 100 MG TABLET PO ×2 (08:08→20:08)
[2024-03-27] MEDS: ASCORBIC ACID 250 MG TABLET 500 MG PO ×2 (08:08→20:08)
[2024-03-27] MEDS: INSULIN GLARGINE (Lantus) 5 UNIT/0.05 ML (PER 5 UNITS) 40 UNIT SC (08:09)
[2024-03-27] MEDS: cefTRIAXone 2 GM in SODIUM CHLORIDE 0.9% (P) 100 ML IV (08:09)
[2024-03-27] MEDS: SOD HYPOCHLORITE 1/4 STR 473 ML BTL IRRIG (08:27)
[2024-03-27] MEDS: MULTIVITAMIN 15 ML UDC PO (08:27)
[2024-03-27] MEDS: INSULIN LISPRO (AdmeLOG) 1 UNIT/0.01 ML UNIT SC ×3 (11:53→20:07)
--- NOTE | 2024-03-27 11:56 | PC.NURSE ---
Patient to MRI via wheelchair.
--- NOTE | 2024-03-27 12:39 | PC.NURSE ---
Patient returned to unit from MRI via wheelchair. Patient transferred from wheelchair to bed with minimum assistance. Patient made comfortable in bed, call light and personal belongings placed within reach.
--- NOTE | 2024-03-27 17:11 | PD.RESPRO ---
Documentation for date of: 03/27/24 Subjective Subjective Interval history: Patient was seen and examined at the bedside. Patient reported that he has mild pain in the right foot after debridement yesterday performed by orthopedics. Patient was explained that we are pending on home health services to be ready and anticipate discharge on Friday. Will continue with current management. All labs and orders were reviewed. Exam Vital Signs Temp Pulse Resp BP Pulse Ox O2 Del Method 98.1 F 85 17 130/86 H 98 Room Air 03/27/24 16:00 03/27/24 16:00 03/27/24 16:00 03/27/24 16:00 03/27/24 16:00 03/27/24 16:00 Narrative Exam General: AAOx3, NAD, HEENT: Moist mucous membranes, conjunctiva clear, EOMI, PERRLA, Cardiovascular: S1, S2, radial pulses +2 bilat, RRR Pulmonary: CTAB bilat no cough, no wheezing GI: No tenderness to light or deep palpitation, abdomen soft, bowel sounds present Extremities: No presence of trace or pitting edema in lower extremities bilaterally, dorsalis pedis pulses +2 bilaterally. Presence of previous partial of R foot (half of foot is amputated). Ulcer present on R dorsal foot, open wound with no active drainage at this time, covered with dressing. Presence of dressing of lateral L forefoot. Presence of previous TMAs of L foot. Neuro: AAOx3, no focal motor or sensory deficits in the UE or LE bilat Psych: Good judgement, thought and behavior. Cooperative Objective Labs 03/27/24 06:13 03/27/24 06:13 Labs: Laboratory Results - last 24 hr 03/27/24 06:13 WBC 6.3 RBC 5.02 Hgb 14.4 Hct 43.4 MCV 87 MCH 28.7 MCHC 33.2 RDW Std Deviation 39.7 Plt Count 202 Neut % (Auto) 46 Lymph % (Auto) 41 [place] % (Auto) 6 Eos % (Auto) 6 Baso % (Auto) 1 Neut # (Auto) 2.9 Lymph # (Auto) 2.6 [place] # (Auto) 0.4 Eos # (Auto) 0.4 Baso # (Auto) 0.0 Immature Gran # (Auto) 0.01 H Absolute Nucleated RBC 0.00 Immature Gran % 0 Nucleated RBC % 0 Sodium 137 Potassium 3.8 Chloride 106 Carbon Dioxide 23.8 Anion Gap 7 BUN 21 Creatinine 0.9 Estim Creat Clear Calc 125.5 eGFR > 60 BUN/Creatinine Ratio 23 H Glucose 128 H Calculated Osmolality 278 Calcium 9.7 Quality Measures Quality Measures VTE prophylaxis (Heparin SC) Assessment & Plan Assessment Current Active Medications: Generic Name Dose Route Start Last Admin Trade Name Freq PRN Reason Stop Dose Admin Hydrocodone Bitart/Acetaminophen 1 tab 03/23/24 20:20 03/27/24 00:33 Hydrocodone/Apap 5/325 Tablet PO 03/28/24 20:19 1 tab Q4HR PRN Administration Pain 4-10 Ascorbic Acid 500 mg 03/26/24 13:45 03/27/24 08:08 Ascorbic Acid 250 Mg Tablet PO 04/25/24 13:44 500 mg BID BRODY Administration Aspirin 81 mg 03/24/24 09:00 03/27/24 08:08 Aspirin Ec 81 Mg Tabec PO 04/23/24 08:59 81 mg QDAY BRODY Administration Dextrose 25 ml 03/23/24 20:18 Dextrose 50%-Water Inj 50 Ml Syringe IV 04/22/24 20:17 Q15MIN PRN BG 50-70 responsive npo pt Dextrose 50 ml 03/23/24 20:18 Dextrose 50%-Water Inj 50 Ml Syringe IV 04/22/24 20:17 Q15MIN PRN BG <50 OR BG <70 & pt unresponsive Doxycycline Hyclate 100 mg 03/24/24 21:00 03/27/24 08:08 Doxycycline 100 Mg Tablet PO 05/06/24 12:00 100 mg BID BRODY Administration Gabapentin 300 mg 03/23/24 22:00 03/27/24 13:52 Gabapentin 300 Mg Capsule PO 04/22/24 21:59 300 mg TID BRODY Administration Heparin Sodium (Porcine) 5,000 unit 03/23/24 22:00 03/27/24 13:54 Heparin Sod Inj 5000 Unit/Ml Vial SC 04/06/24 21:59 5,000 unit Q8HR BRODY Administration Ceftriaxone Sodium 2 gm/ 100 mls @ 200 mls/hr 03/26/24 09:00 03/27/24 08:39 Sodium Chloride IV 04/02/24 08:59 Infused QDAY BRODY Infusion Insulin Glargine 40 unit 03/24/24 09:00 03/27/24 08:09 Insulin Glargine (Lantus) 5 Unit/0.05 Ml (Per 5 Units) SC 04/23/24 08:59 40 unit QDAY BRODY Administration Insulin Human Lispro 0 unit 03/23/24 21:00 03/27/24 11:53 Insulin Lispro (Admelog) 1 Unit/0.01 Ml Unit SC 04/22/24 20:59 4 unit ACHS BRODY Administration Protocol Lactulose 10 gm 03/25/24 11:30 03/27/24 13:52 Lactulose Syrup 20 Gm/30 Ml Udc PO 04/24/24 11:29 10 gm TID BRODY Administration Protocol Lisinopril 40 mg 03/25/24 09:00 03/27/24 08:08 Lisinopril 20 Mg Tablet PO 04/24/24 08:59 40 mg QDAY BRODY Administration Metoclopramide HCl 2.5 mg 03/26/24 14:36 Metoclopramide Inj 5 Mg/Ml Vial 2 Ml IVP 04/22/24 22:14 Q8HR PRN NAUSEA OR VOMITING Protocol Multivitamins/Minerals 15 ml 03/26/24 13:45 03/27/24 08:27 Multivitamin 15 Ml Udc PO 04/25/24 13:44 15 ml QDAY BRODY Administration Ondansetron HCl 4 mg 03/23/24 20:15 Ondansetron Inj 2 Mg/Ml Inj 2 Ml IV 04/22/24 20:14 Q6H PRN NAUSEA OR VOMITING Protocol Sodium Hypochlorite 473 ml 03/27/24 09:00 03/27/24 08:27 Sod Hypochlorite 1/4 Str 473 Ml Btl IRRIG 04/26/24 08:59 1 appln DAILY BRODY Administration Zinc Sulfate 220 mg 03/26/24 13:45 03/27/24 08:08 Zinc Sulfate 220 Mg Capsule PO 04/09/24 13:44 220 mg QDAY BRODY Administration Plan 54-year-old male with recent admission for osteomyelitis who presented with subjective fevers, generalized weakness, and worsening pain over his left foot. He was found to have worsening osteomyelitis. Plan: #Osteomyelitis, R foot, acute on chronic #History of osteomyelitis of left foot #History of diabetic ulcers #History of TMA #History of amputations of foot #Diabetic foot ulcer, right # Debridement of right foot ulcer, 03/26 Patient with history of multiple amputations secondary to diabetic foot ulcer, uncontrolled diabetes Not septic at this time X-ray of the foot shows worsening osteomyelitis on the right Foot appears to have a dry gangrene He was recently admitted and discharged on oral antibiotics Patient was recently here for OM of left foot MRI of R foot says Early OM including distal cortical margins medial and mid cuneiforms R foot has partial amputation of foot at this time General Surgery, Dr. Mcfarland, recommends either orthopedic consult or to continue abx and that there is no surgical intervention that he can perform at this point Will consider having orthopedic looking at pt or proceeding with abx treatment ID had seen pt and had said pt may need to continue with abx with a possible change in date if pt had not taken abx as directed Spoke w/ ID, for abx, will need to restart date, 6 weeks from today, which will be 05/06/24 to complete Rocephin (2g once a day) and Doxycycline (100 BID every day) Contacted Ortho, unable to reach at this time Contacted Ortho once more, unable to reach this time 03/26 Ortho, Dr. Blake dropped note recommending MRI of L foot, recommends serial debridement, and may have Dr. Ricardo see pt as well Pt will need IV abx 6 weeks until 05/05 BC NG2D Plan: Pending home health services Pending MRI left knee report performed debridement of right foot ulcer on 03/26 Will cover empirically with IV Rocephin 2 g once a day and doxycycline 100 mg twice daily until May 05, 2024 Consult ID. Appreciate recommendations General Surgery, Dr. Coy consulted Ortho consulted Continue with antibiotics #Type 2 diabetes, insulin-dependent, uncontrolled On home insulin, A1C 9.3 Plan: Resume insulin Lantus 40 units daily plus sliding scale insulin. Adjust based on the fingersticks. Monitor fingersticks ACHS. Resume home gabapentin for neuropathy Reglan as needed for nausea/possible gastroparesis #Coronary artery disease Patient explains that he has chest pain upon exertion Extensive family history of coronary artery disease, sister with stent, mother with heart disease Plan: Continue home aspirin #History of hypertriglyceridemia Was in 200s on March 06 Plan: ? Stable #Health Maintenance Disposition: MedSurg DVT prophylaxis: Heparin GI prophylaxis: None at this time Diet: Carb consistent CODE STATUS: Full Patient was seen and discussed with attending physician, Dr. Sandra Clement MD, PGY 2 Internal medicine Attending Provider Attestation/Addendum I have discussed and was present for the essential components of the history, physical examination, diagnosis, and treatment plan with the resident. I agree with the patient's care as documented by the resident and amended herein by me. Irvin Flores, DO. Patient seen and evaluated this AM. Vital signs stable, patient afebrile overnight, bilateral debridement performed on 03/[address] Steiner which is appreciated. Blood cultures negative thus far. PICC line was placed yesterday, will continue antibiotics ceftriaxone and doxycycline through 03/24 through 05/05 for osteomyelitis now of the right foot. MRI of the patient's left foot was ordered per Ortho recommendations, pending read. Infectious disease consulted, also appreciate recommendations. Wound care is placed, home health ordered however home health will not be able to be started until Friday hence patient cannot be discharged until Thursday 03/29 after his IV antibiotic dose for that day. Although this document has been carefully reviewed, there may still be some phonetic and other typographical errors. These errors are purely grammatical due to imperfections in the software program and should not be construed in any way to compromise the substance of the patient's medical care during this visit.
--- NOTE | 2024-03-27 19:40 | CONPN_ITS ---
Subjective Subjective Brief History: Patient seen recently admitted and was diagnosed as having osteomyelitis of the left fifth metatarsal. I looked for imaging and the imaging seems to be right lower extremity. Other admission was for pain on and swelling left foot. Big problem at the present time seems to be the right foot. Has had some GI complications from oral antibiotics. He was discharged from the hospital without a PICC line because his [facility] was in the [facility] and he was discharged on oral antibiotics. He came back again with swelling of and very minimal swelling left foot. Narrative: Continued pain left and right foot Exam Vital Signs Temp Pulse Resp BP Pulse Ox O2 Del Method 98.1 F 85 17 130/86 H 98 Room Air 03/27/24 16:00 03/27/24 16:00 03/27/24 16:00 03/27/24 16:00 03/27/24 16:00 03/27/24 16:00 VSS Narrative Exam Alert and oriented. Has had dressing changed today I did not look at wound Objective - Ortho Labs 03/27/24 06:13 03/27/24 06:13 Labs: Laboratory Results - last 24 hr 03/27/24 06:13 WBC 6.3 RBC 5.02 Hgb 14.4 Hct 43.4 MCV 87 MCH 28.7 MCHC 33.2 RDW Std Deviation 39.7 Plt Count 202 Neut % (Auto) 46 Lymph % (Auto) 41 [place] % (Auto) 6 Eos % (Auto) 6 Baso % (Auto) 1 Neut # (Auto) 2.9 Lymph # (Auto) 2.6 [place] # (Auto) 0.4 Eos # (Auto) 0.4 Baso # (Auto) 0.0 Immature Gran # (Auto) 0.01 H Absolute Nucleated RBC 0.00 Immature Gran % 0 Nucleated RBC % 0 Sodium 137 Potassium 3.8 Chloride 106 Carbon Dioxide 23.8 Anion Gap 7 BUN 21 Creatinine 0.9 Estim Creat Clear Calc 125.5 eGFR > 60 BUN/Creatinine Ratio 23 H Glucose 128 H Calculated Osmolality 278 Calcium 9.7 White count 6300 Assessment & Plan Assessment Additional comments: Patient has had pain difficulty 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 He has had multiple infections over this period of time. He has seen his skin get more and more frail about the right ankle and remaining right foot. Talk to general surgeon on-call this weekend Plan I told him I think he is going to need a below-knee amputation sooner rather than later. This foot has been a chronic problem ever since the amputation 5 years ago. Documentation for date of: 03/27/24
[2024-03-28] VITALS (7 sets, daily range): BP systolic 106–139; BP diastolic 55–90; PULSE 78–100; RESP 17–20; TEMP 36.3–36.9; O2SAT 96–99
[2024-03-28] MEDS: LACTULOSE SYRUP 20 GM/30 ML UDC 10 GM PO ×3 (05:12→21:10)
[2024-03-28] MEDS: HEPARIN SOD INJ 5000 UNIT/ML VIAL SC ×3 (05:12→21:13)
[2024-03-28] MEDS: GABAPENTIN 300 MG CAPSULE PO ×3 (05:12→21:12)
[2024-03-28 05:27] LABS: Basophils % (Auto) 1 % (0-2.5); Eosinophils # (Auto) 0.3 Thou/mm3 (0.0-0.5); Eosinophils % (Auto) 4 % (0-10); Hematocrit 40.8 % (41.0-53.0); Hemoglobin 13.5 g/dL (13.5-16.0); Immature Granulocytes % (Auto) 0 % (0-0); Immature Granulocytes Auto 0.02 Thou/mm3 (0.00-0.00); Lymphocytes # (Auto) 2.5 Thou/mm3 (1.0-4.8); Lymphocytes % (Auto) 41 % (10-50); Mean Corpuscular HGB Conc 33.1 g/dl (31.0-37.0); Mean Corpuscular Hemoglobin 28.4 pg (25.0-35.0); Mean Corpuscular Volume 86 fL (80-100); Monocytes # (Auto) 0.4 Thou/mm3 (0.0-0.8); Monocytes % (Auto) 7 % (0-12); Neutrophils # (Auto) 2.9 Thou/mm3 (1.8-7.7); Neutrophils % (Auto) 47 % (37-80); Nucleated Red Blood Cell % 0 /100 WBC (0); Platelet Count 192 Thou/mm3 (140-440); RDW Standard Deviation 39.2 fL (35.1-43.9); Red Blood Count 4.76 Miln/mm3 (4.50-5.90); White Blood Count 6.1 Thou/mm3 (3.8-10.6)
[2024-03-28 05:51] LABS: Anion Gap 4 (7-16); BUN/Creatinine Ratio 24 Ratio (12-20); Blood Urea Nitrogen 22 mg/dL (9-23); Calcium 9.6 mg/dL (8.3-10.6); Carbon Dioxide 23.3 mMol/L (20.0-31.0); Chloride 110 mMol/L (98-107); Creatinine (Component) 0.9 mg/dL (0.6-1.3); Estimated Creatinine Clearance 125.5 mL/min (>60); Glucose 130 mg/dL (74-106); Magnesium 1.9 mg/dL (1.6-2.6); Osmolality,Calculated 279 (275-295); Phosphorous 3.1 mg/dL (2.4-5.1); Sodium 137 mMol/L (136-145); eGFR > 60 See Note
[2024-03-28] MEDS: DOXYCYCLINE 100 MG TABLET PO ×2 (08:10→21:11)
[2024-03-28] MEDS: Lisinopril 20 MG TABLET 40 MG PO (08:10)
[2024-03-28] MEDS: ASCORBIC ACID 250 MG TABLET 500 MG PO ×2 (08:10→21:11)
[2024-03-28] MEDS: ASPIRIN EC 81 MG TABEC PO (08:10)
[2024-03-28] MEDS: ZINC SULFATE 220 MG CAPSULE PO (08:10)
[2024-03-28] MEDS: INSULIN GLARGINE (Lantus) 5 UNIT/0.05 ML (PER 5 UNITS) 40 UNIT SC (08:11)
[2024-03-28] MEDS: MULTIVITAMIN 15 ML UDC PO (08:11)
[2024-03-28] MEDS: cefTRIAXone 2 GM in SODIUM CHLORIDE 0.9% (P) 100 ML IV (08:12)
[2024-03-28] MEDS: SOD HYPOCHLORITE 1/4 STR 473 ML BTL IRRIG (09:45)
--- NOTE | 2024-03-28 09:47 | ESPR_ITS ---
<Statement entered by Tayler Vaughan MD - 03/29/24 22:16> Patient was seen and examined at bedside. Agree on most of the assessment and plan in the note. - Patient's plan and care discussed with my attending, Dr. Sandra Vaughan MD Internal Medicine PGY-2 Documentation for date of: 03/28/24 Subjective Subjective Interval history: Pt examined at bedside this morning, had debridement done and tolerated it well, is acceptable to doing amputation at this time as he was concerned that his lower extremities hurt when he walks and they are getting darker in color. Says that he discussed this with the orthopedic surgeon as well. No other complaints at this time. Exam Vital Signs Temp Pulse Resp BP Pulse Ox O2 Del Method 97.3 F 82 17 117/77 98 Room Air 03/28/24 08:00 03/28/24 08:10 03/28/24 08:00 03/28/24 08:10 03/28/24 08:00 03/28/24 08:00 Narrative Exam General: AAOx3, NAD, HEENT: Moist mucous membranes, conjunctiva clear, EOMI, PERRLA, Cardiovascular: S1, S2, radial pulses +2 bilat, RRR Pulmonary: CTAB bilat no cough, no wheezing GI: No tenderness to light or deep palpitation, abdomen soft, bowel sounds present Extremities: No presence of trace or pitting edema in lower extremities bilaterally, dorsalis pedis pulses +2 bilaterally. Presence of previous partial of R foot (half of foot is amputated). Ulcer present on R dorsal foot, open wound with no active drainage at this time, covered with dressing. Presence of dressing of lateral L forefoot. Presence of previous TMAs of L foot. S/P Debridments of both feet Neuro: AAOx3, no focal motor or sensory deficits in the UE or LE bilat Psych: Good judgement, thought and behavior. Cooperative Objective Labs 03/28/24 05:06 03/28/24 05:06 Labs: Laboratory Results - last 24 hr 03/28/24 05:06 WBC 6.1 RBC 4.76 Hgb 13.5 Hct 40.8 L MCV 86 MCH 28.4 MCHC 33.1 RDW Std Deviation 39.2 Plt Count 192 Neut % (Auto) 47 Lymph % (Auto) 41 [place] % (Auto) 7 Eos % (Auto) 4 Baso % (Auto) 1 Neut # (Auto) 2.9 Lymph # (Auto) 2.5 [place] # (Auto) 0.4 Eos # (Auto) 0.3 Baso # (Auto) 0.0 Immature Gran # (Auto) 0.02 H Absolute Nucleated RBC 0.00 Immature Gran % 0 Nucleated RBC % 0 Sodium 137 Potassium 4.0 Chloride 110 H Carbon Dioxide 23.3 Anion Gap 4 L BUN 22 Creatinine 0.9 Estim Creat Clear Calc 125.5 eGFR > 60 BUN/Creatinine Ratio 24 H Glucose 130 H Calculated Osmolality 279 Calcium 9.6 Phosphorus 3.1 Magnesium 1.9 Quality Measures Quality Measures VTE prophylaxis (Heparin SC) Assessment & Plan Assessment Current Active Medications: Generic Name Dose Route Start Last Admin Trade Name Freq PRN Reason Stop Dose Admin Hydrocodone Bitart/Acetaminophen 1 tab 03/23/24 20:20 03/27/24 19:57 Hydrocodone/Apap 5/325 Tablet PO 03/28/24 20:19 1 tab Q4HR PRN Administration Pain 4-10 Ascorbic Acid 500 mg 03/26/24 13:45 03/28/24 08:10 Ascorbic Acid 250 Mg Tablet PO 04/25/24 13:44 500 mg BID BRODY Administration Aspirin 81 mg 03/24/24 09:00 03/28/24 08:10 Aspirin Ec 81 Mg Tabec PO 04/23/24 08:59 81 mg QDAY BRODY Administration Dextrose 25 ml 03/23/24 20:18 Dextrose 50%-Water Inj 50 Ml Syringe IV 04/22/24 20:17 Q15MIN PRN BG 50-70 responsive npo pt Dextrose 50 ml 03/23/24 20:18 Dextrose 50%-Water Inj 50 Ml Syringe IV 04/22/24 20:17 Q15MIN PRN BG <50 OR BG <70 & pt unresponsive Doxycycline Hyclate 100 mg 03/24/24 21:00 03/28/24 08:10 Doxycycline 100 Mg Tablet PO 05/06/24 12:00 100 mg BID BRODY Administration Gabapentin 300 mg 03/23/24 22:00 03/28/24 05:12 Gabapentin 300 Mg Capsule PO 04/22/24 21:59 300 mg TID BRODY Administration Heparin Sodium (Porcine) 5,000 unit 03/23/24 22:00 03/28/24 05:12 Heparin Sod Inj 5000 Unit/Ml Vial SC 04/06/24 21:59 5,000 unit Q8HR BRODY Administration Ceftriaxone Sodium 2 gm/ 100 mls @ 200 mls/hr 03/26/24 09:00 03/28/24 08:12 Sodium Chloride IV 04/02/24 08:59 200 mls/hr QDAY BRODY Administration Insulin Glargine 40 unit 03/24/24 09:00 03/28/24 08:11 Insulin Glargine (Lantus) 5 Unit/0.05 Ml (Per 5 Units) SC 04/23/24 08:59 40 unit QDAY BRODY Administration Insulin Human Lispro 0 unit 03/23/24 21:00 03/28/24 07:40 Insulin Lispro (Admelog) 1 Unit/0.01 Ml Unit SC 04/22/24 20:59 Not Given ACHS BRODY Protocol Lactulose 10 gm 03/25/24 11:30 03/28/24 05:12 Lactulose Syrup 20 Gm/30 Ml Udc PO 04/24/24 11:29 10 gm TID BRODY Administration Protocol Lisinopril 40 mg 03/25/24 09:00 03/28/24 08:10 Lisinopril 20 Mg Tablet PO 04/24/24 08:59 40 mg QDAY BRODY Administration Metoclopramide HCl 2.5 mg 03/26/24 14:36 Metoclopramide Inj 5 Mg/Ml Vial 2 Ml IVP 04/22/24 22:14 Q8HR PRN NAUSEA OR VOMITING Protocol Multivitamins/Minerals 15 ml 03/26/24 13:45 03/28/24 08:11 Multivitamin 15 Ml Udc PO 04/25/24 13:44 15 ml QDAY BRODY Administration Ondansetron HCl 4 mg 03/23/24 20:15 Ondansetron Inj 2 Mg/Ml Inj 2 Ml IV 04/22/24 20:14 Q6H PRN NAUSEA OR VOMITING Protocol Sodium Hypochlorite 473 ml 03/27/24 09:00 03/28/24 09:45 Sod Hypochlorite 1/4 Str 473 Ml Btl IRRIG 04/26/24 08:59 1 appln DAILY BRODY Administration Zinc Sulfate 220 mg 03/26/24 13:45 03/28/24 08:10 Zinc Sulfate 220 Mg Capsule PO 04/09/24 13:44 220 mg QDAY BRODY Administration Plan 54-year-old male with recent admission for osteomyelitis who presented with subjective fevers, generalized weakness, and worsening pain over his right foot. He was found to have osteomyelitis. Plan: #Osteomyelitis, R foot, acute on chronic #History of osteomyelitis of left foot #History of diabetic ulcers #History of TMA #History of amputations of foot #Diabetic foot ulcer, right #Debridement of right foot ulcer, 03/26 Patient with history of multiple amputations secondary to diabetic foot ulcer, uncontrolled diabetes Not septic at this time X-ray of the foot shows worsening osteomyelitis on the right Foot appears to have a dry gangrene He was recently admitted and discharged on oral antibiotics Patient was recently here for OM of left foot MRI of R foot says Early OM including distal cortical margins medial and mid cuneiforms R foot has partial amputation of foot at this time General Surgery, Dr. Mcfarland, recommends either orthopedic consult or to continue abx and that there is no surgical intervention that he can perform at this point Will consider having orthopedic looking at pt or proceeding with abx treatment ID had seen pt and had said pt may need to continue with abx with a possible change in date if pt had not taken abx as directed Spoke w/ ID, for abx, will need to restart date, 6 weeks from today, which will be 05/06/24 to complete Rocephin (2g once a day) and Doxycycline (100 BID every day) Contacted Ortho, unable to reach at this time Contacted Ortho once more, unable to reach this time 03/26 Ortho, Dr. Blake dropped note recommending MRI of L foot, recommends serial debridement, and may have Dr. Ricardo see pt as well Pt will need IV abx 6 weeks until 05/05 BC NG2D S/p Debridement of both L and R foot Discussed option of amputation, is agreeable at this time Dr. Blake, Ortho, recommended to pt that he will need BKA sooner than later Contacted Dr. Mcfarland to see further recommendations in regards to BKA for patient Dr. Mcfarland does not think pt needs BKA, and recommends another surgical opinion, will consult Dr. Pizarro MRI L foot shows cortical bone erosion at the amputation site fifth metatarsal but erosion is less compared to the MRI on 03/05/2024 Pt to also go home with home health services, will follow up with social work Plan: Will cover empirically with IV Rocephin 2 g once a day and doxycycline 100 mg twice daily until May 05, 2024 Consult ID. Appreciate recommendations General Surgery, Dr. Coy consulted Ortho consulted Continue with antibiotics #Type 2 diabetes, insulin-dependent, uncontrolled On home insulin, A1C 9.3 Plan: Resume insulin Lantus 40 units daily plus sliding scale insulin. Adjust based on the fingersticks. Monitor fingersticks ACHS. Resume home gabapentin for neuropathy Reglan as needed for nausea/possible gastroparesis #Coronary artery disease Patient explains that he has chest pain upon exertion Extensive family history of coronary artery disease, sister with stent, mother with heart disease Plan: Continue home aspirin #History of hypertriglyceridemia Was in 200s on March 06 Plan: ? Stable #Health Maintenance Disposition: MedSurg DVT prophylaxis: Heparin GI prophylaxis: None at this time Diet: Carb consistent CODE STATUS: Full Patient was seen and discussed with attending physician, Dr. Flores and my senior, Dr. Clement Mcghee, PGY-1 Attending Provider Attestation/Addendum Denies activities you I have discussed and was present for the essential components of the history, physical examination, diagnosis, and treatment plan with the resident. I agree with the patient's care as documented by the resident and amended herein by me. Irvin Flores DO. In short, patient is a 54-year-old male with recent admission for osteomyelitis of the left foot, presented with subjective fevers, generalized weakness and worsening pain in his right foot. Patient had a transmetatarsal amputation of this foot approximately 5 years ago and has been dealing with pain and infections according to him during this time. Orthopedic surgery was consulted who did did a small debridement on the right foot as well as the left foot. Patient had recent prior admission in which she was started on 6 weeks of antibiotics for osteomyelitis in his left foot, due to insurance issues, he could not receive IV antibiotics. We did place a PICC line in which the patient would be started on 6 weeks of antibiotics starting on 03/24, ending on 05/05 with ceftriaxone and doxycycline. Orthopedic surgery however recommended possible BKA and surprisingly the patient actually wants this. We did reach out to general surgery who was originally consulted on the case, Dr. Coy however he disagrees with BKA stating the foot is still viable and that the patient should just follow-up with outpatient wound care however he is out of town and is requesting Dr. Pizarro, who is covering for him take a look at the right foot tomorrow for another assessment. At this time we will continue wound care, continue ceftriaxone and doxycycline. Home health orders already in however the patient can only be discharged after his antibiotic dose on Thursday 03/29 as home health will not be able to come to his residence until Friday 03/30. Infectious disease, orthopedic surgery and general surgery are all consulted on the case. Although this document has been carefully reviewed, there may still be some phonetic and other typographical errors. These errors are purely grammatical due to imperfections in the software program and should not be construed in any way to compromise the substance of the patient's medical care during this visit.
[2024-03-28] MEDS: MAGNESIUM CITRATE 300 ML BTL PO (12:24)
--- NOTE | 2024-03-28 15:11 | PC.SS ---
Fuentes Fitzgerald is 54 year old male admitted to [facility] for OM of foot. SS conducted bedside contact with the patient to complete initial assessment and to discuss discharge planning. SW used all precautionary measures to complete initial. Role and reason for the contact was explained to Fuentes. Pt is alert and oriented times 4. Patient confirmed demographic information and correct on facesheet. Pt lives with sister, Maribel Wetzel. Patient identifies Mary Fitzgerald, daughter, [phone] as surrogate decision maker. Pt states prior to hospitalization he is able to complete ADL?s independently. Pt has wheelchair and is waiting for his right foot to be healed so he can be fitted for a prosthetic. Pt does not O2. Pt states he does not have history of mental health or substance abuse. 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 Pt was recently released from [facility]. Pharmacy of choice is [facility]. Discharge options discussed and plan is home. Since pt is possibly getting additional amputation there may be need for SNF; Pt is open to out patient physical therapy rather than home. Pt unsure if family will be able to provide transportation. SS discussed advanced life directive, pt receptive and ss provided paperwork. No further intervention required at this time, long term care social worker would be available to address any further concerns. DC Plan: Home Contact: carlita Carson, [phone] Address: Confirmed on face sheet PCP: Recently moved to [facility]
--- NOTE | 2024-03-28 15:13 | PC.SS ---
SS spoke with pt stated may need transportation upon discharge if family unable to assist.
--- NOTE | 2024-03-28 16:15 | PC.SS ---
SS spoke with Ynes, registration, added person to notify: Mary Fitzgerald, daughter,
[2024-03-28] MEDS: HYDROcodone/APAP 5/325 TABLET 1 TAB PO (19:01)
--- NOTE | 2024-03-28 21:48 | CONPN_ITS ---
Subjective Subjective Brief History: Patient seen recently admitted and was diagnosed as having osteomyelitis of the left fifth metatarsal. I looked for imaging and the imaging seems to be right lower extremity. Other admission was for pain on and swelling left foot. Big problem at the present time seems to be the right foot. Has had some GI complications from oral antibiotics. He was discharged from the hospital without a PICC line because his [facility] was in the [facility] and he was discharged on oral antibiotics. He came back again with swelling of and very minimal swelling left foot. Narrative: Pain in both lower extremities a little bit better Exam Vital Signs Temp Pulse Resp BP Pulse Ox O2 Del Method 98 F 100 20 139/80 H 98 Room Air 03/28/24 20:00 03/28/24 20:00 03/28/24 20:00 03/28/24 20:00 03/28/24 20:00 03/28/24 20:00 Blood pressure 139/80, pulse 100, pulse ox 98% Narrative Exam Alert and oriented, bandages changed today we will look at wounds tomorrow swelling down Objective - Ortho Labs 03/28/24 05:06 03/28/24 05:06 Labs: Laboratory Results - last 24 hr 03/28/24 05:06 WBC 6.1 RBC 4.76 Hgb 13.5 Hct 40.8 L MCV 86 MCH 28.4 MCHC 33.1 RDW Std Deviation 39.2 Plt Count 192 Neut % (Auto) 47 Lymph % (Auto) 41 [place] % (Auto) 7 Eos % (Auto) 4 Baso % (Auto) 1 Neut # (Auto) 2.9 Lymph # (Auto) 2.5 [place] # (Auto) 0.4 Eos # (Auto) 0.3 Baso # (Auto) 0.0 Immature Gran # (Auto) 0.02 H Absolute Nucleated RBC 0.00 Immature Gran % 0 Nucleated RBC % 0 Sodium 137 Potassium 4.0 Chloride 110 H Carbon Dioxide 23.3 Anion Gap 4 L BUN 22 Creatinine 0.9 Estim Creat Clear Calc 125.5 eGFR > 60 BUN/Creatinine Ratio 24 H Glucose 130 H Calculated Osmolality 279 Calcium 9.6 Phosphorus 3.1 Magnesium 1.9 Hemoglobin 13.5 white count 6100 Assessment & Plan Assessment Additional comments: Additional time spent discussing below-knee amputation. Is he is foot has been a big problem for the past 5 years with recurrent infections. Will have general surgeon discussed below-knee amputation Plan Contact Dr. Coy in a.m. about below-knee amputation Documentation for date of: 03/28/24
[2024-03-29] VITALS (8 sets, daily range): BP systolic 122–163; BP diastolic 59–106; PULSE 73–105; RESP 16–20; TEMP 36.2–36.7; O2SAT 94–100
[2024-03-29] MEDS: GABAPENTIN 300 MG CAPSULE PO ×3 (05:06→21:37)
[2024-03-29] MEDS: HEPARIN SOD INJ 5000 UNIT/ML VIAL SC ×3 (05:06→21:37)
[2024-03-29] MEDS: LACTULOSE SYRUP 20 GM/30 ML UDC 10 GM PO ×2 (05:06→13:21)
[2024-03-29 05:35] LABS: Basophils % (Auto) 1 % (0-2.5); Eosinophils # (Auto) 0.3 Thou/mm3 (0.0-0.5); Eosinophils % (Auto) 5 % (0-10); Hematocrit 41.2 % (41.0-53.0); Hemoglobin 13.5 g/dL (13.5-16.0); Immature Granulocytes % (Auto) 0 % (0-0); Immature Granulocytes Auto 0.01 Thou/mm3 (0.00-0.00); Lymphocytes # (Auto) 2.4 Thou/mm3 (1.0-4.8); Lymphocytes % (Auto) 40 % (10-50); Mean Corpuscular HGB Conc 32.8 g/dl (31.0-37.0); Mean Corpuscular Hemoglobin 28.4 pg (25.0-35.0); Mean Corpuscular Volume 87 fL (80-100); Monocytes # (Auto) 0.5 Thou/mm3 (0.0-0.8); Monocytes % (Auto) 8 % (0-12); Neutrophils # (Auto) 2.8 Thou/mm3 (1.8-7.7); Neutrophils % (Auto) 46 % (37-80); Nucleated Red Blood Cell % 0 /100 WBC (0); Platelet Count 174 Thou/mm3 (140-440); RDW Standard Deviation 40.5 fL (35.1-43.9); Red Blood Count 4.76 Miln/mm3 (4.50-5.90); White Blood Count 5.9 Thou/mm3 (3.8-10.6)
[2024-03-29] MEDS: HYDROcodone/APAP 5/325 TABLET 1 TAB PO ×3 (05:37→19:54)
[2024-03-29 05:57] LABS: Anion Gap 5 (7-16); BUN/Creatinine Ratio 21 Ratio (12-20); Blood Urea Nitrogen 17 mg/dL (9-23); Calcium 9.5 mg/dL (8.3-10.6); Carbon Dioxide 23.6 mMol/L (20.0-31.0); Chloride 109 mMol/L (98-107); Creatinine (Component) 0.8 mg/dL (0.6-1.3); Estimated Creatinine Clearance 141.2 mL/min (>60); Glucose 188 mg/dL (74-106); Osmolality,Calculated 282 (275-295); Potassium 4.2 mMol/L (3.4-5.1); Sodium 138 mMol/L (136-145); eGFR > 60 See Note
[2024-03-29] MEDS: INSULIN GLARGINE (Lantus) 5 UNIT/0.05 ML (PER 5 UNITS) 40 UNIT SC (08:35)
[2024-03-29] MEDS: ZINC SULFATE 220 MG CAPSULE PO (08:39)
[2024-03-29] MEDS: ASCORBIC ACID 250 MG TABLET 500 MG PO ×2 (08:39→19:55)
[2024-03-29] MEDS: MULTIVITAMIN 15 ML UDC PO (08:39)
[2024-03-29] MEDS: DOXYCYCLINE 100 MG TABLET PO ×2 (08:39→19:55)
[2024-03-29] MEDS: cefTRIAXone 2 GM in SODIUM CHLORIDE 0.9% (P) 100 ML IV (08:39)
[2024-03-29] MEDS: Lisinopril 20 MG TABLET 40 MG PO (08:39)
[2024-03-29] MEDS: ASPIRIN EC 81 MG TABEC PO (08:39)
--- NOTE | 2024-03-29 09:17 | PD.IDPROG ---
Subjective Subjective Interval history: amputation discussion ongoing. other problems as noted. Exam Vital Signs Temp Pulse Resp BP Pulse Ox O2 Del Method 97.2 F 79 18 143/81 H 99 Room Air 03/29/24 07:47 03/29/24 08:39 03/29/24 07:47 03/29/24 08:39 03/29/24 07:47 03/29/24 07:47 Narrative Exam limited visit Objective - Internal Medicine Labs 03/29/24 05:12 03/29/24 05:12 Labs: Laboratory Results - last 24 hr 03/29/24 05:12 WBC 5.9 RBC 4.76 Hgb 13.5 Hct 41.2 MCV 87 MCH 28.4 MCHC 32.8 RDW Std Deviation 40.5 Plt Count 174 Neut % (Auto) 46 Lymph % (Auto) 40 [place] % (Auto) 8 Eos % (Auto) 5 Baso % (Auto) 1 Neut # (Auto) 2.8 Lymph # (Auto) 2.4 [place] # (Auto) 0.5 Eos # (Auto) 0.3 Baso # (Auto) 0.0 Immature Gran # (Auto) 0.01 H Absolute Nucleated RBC 0.00 Immature Gran % 0 Nucleated RBC % 0 Sodium 138 Potassium 4.2 Chloride 109 H Carbon Dioxide 23.6 Anion Gap 5 L BUN 17 Creatinine 0.8 Estim Creat Clear Calc 141.2 eGFR > 60 BUN/Creatinine Ratio 21 H Glucose 188 H D Calculated Osmolality 282 Calcium 9.5 Assessment & Plan A&P Narrative osteo of foot. see imaging dm II a1c 9.3 on 03/06 no pvd on arterial doppler from early march 2024 if he has an amputation, then role of abx absent He was seen in Ed on 03/12 but sent home on po. so have to start the 6 weeks iv from the date of admit so will be on rx from 03/23 thru 05/05. will try to see mwf when I am here. no objection to placement for rx. if he failed po before, does not make sense to go back to that again. note that baseline esr/crp currently not that high, but they were higher before. note that procal often neg in focal chronic processes. Time Spent With Patient Time: Total time spent is greater than 50% in coordination of care (as documented) at patient's floor/unit and/or counseling patient:
--- NOTE | 2024-03-29 09:56 | PC.SS ---
Follow up note: Waiting for surgery recommendations. Pt will d/c home with Home Health for IV antibiotic, Rocephin 2rm 1 X day until May 05, 2024.
[2024-03-29] MEDS: INSULIN LISPRO (AdmeLOG) 1 UNIT/0.01 ML UNIT SC (13:21)
[2024-03-29] MEDS: SOD HYPOCHLORITE 1/4 STR 473 ML BTL IRRIG (13:53)
--- NOTE | 2024-03-29 16:10 | ESPR_ITS ---
<Statement entered by Han Clement MD - 03/29/24 17:11> Patient was seen and examined at the bedside. Patient denied having a bowel movement therefore bowel regimen was adjusted. Surgery recommendation pending for BKA possibly. All labs and orders were reviewed. I saw and examined the patient, and I agree with current management stated by Dr Taz DO,PGY1. Plan of care was discussed with the attending physician and resident physician. Disclaimer: Despite multiple revisions, due to the dictation software being used, the document bellow may not be free of grammatical errors including phonetic/typographic errors. However, this does not deter from our commitment to providing health care in the patient's best interest in mind. Dr. Urbano MD, PGY 2 Documentation for date of: 03/29/24 Subjective Subjective Interval history: Pt examined at bedside today, reports he is doing okay, has not had a bowel movement. Still says he wants to go for surgery for a BKA. No other complaints at this time. Exam Vital Signs Temp Pulse Resp BP Pulse Ox O2 Del Method 97.7 F 89 16 150/102 H 98 Room Air 03/29/24 11:43 03/29/24 11:43 03/29/24 11:43 03/29/24 11:43 03/29/24 11:43 03/29/24 11:43 Narrative Exam General: AAOx3, NAD, HEENT: Moist mucous membranes, conjunctiva clear, EOMI, PERRLA, Cardiovascular: S1, S2, radial pulses +2 bilat, RRR Pulmonary: CTAB bilat no cough, no wheezing GI: No tenderness to light or deep palpitation, abdomen soft, bowel sounds present Extremities: No presence of trace or pitting edema in lower extremities bilaterally, dorsalis pedis pulses +2 bilaterally. Presence of previous partial of R foot (half of foot is amputated). Ulcer present on R dorsal foot, open wound with no active drainage at this time, covered with dressing. Presence of dressing of lateral L forefoot. Presence of previous TMAs of L foot. S/P Debridments of both feet Neuro: AAOx3, no focal motor or sensory deficits in the UE or LE bilat Psych: Good judgement, thought and behavior. Cooperative Objective Labs 03/30/24 05:14 03/30/24 05:14 Labs: Laboratory Results - last 24 hr 03/29/24 05:12 WBC 5.9 RBC 4.76 Hgb 13.5 Hct 41.2 MCV 87 MCH 28.4 MCHC 32.8 RDW Std Deviation 40.5 Plt Count 174 Neut % (Auto) 46 Lymph % (Auto) 40 [place] % (Auto) 8 Eos % (Auto) 5 Baso % (Auto) 1 Neut # (Auto) 2.8 Lymph # (Auto) 2.4 [place] # (Auto) 0.5 Eos # (Auto) 0.3 Baso # (Auto) 0.0 Immature Gran # (Auto) 0.01 H Absolute Nucleated RBC 0.00 Immature Gran % 0 Nucleated RBC % 0 Sodium 138 Potassium 4.2 Chloride 109 H Carbon Dioxide 23.6 Anion Gap 5 L BUN 17 Creatinine 0.8 Estim Creat Clear Calc 141.2 eGFR > 60 BUN/Creatinine Ratio 21 H Glucose 188 H D Calculated Osmolality 282 Calcium 9.5 Quality Measures Quality Measures VTE prophylaxis (Heparin SC) Assessment & Plan Assessment Current Active Medications: Generic Name Dose Route Start Last Admin Trade Name Freq PRN Reason Stop Dose Admin Hydrocodone Bitart/Acetaminophen 1 tab 03/29/24 13:01 03/29/24 13:21 Hydrocodone/Apap 5/325 Tablet PO 04/03/24 13:00 1 tab Q4HR PRN Administration PAIN Ascorbic Acid 500 mg 03/26/24 13:45 03/29/24 08:39 Ascorbic Acid 250 Mg Tablet PO 04/25/24 13:44 500 mg BID BRODY Administration Aspirin 81 mg 03/24/24 09:00 03/29/24 08:39 Aspirin Ec 81 Mg Tabec PO 04/23/24 08:59 81 mg QDAY BRODY Administration Dextrose 25 ml 03/23/24 20:18 Dextrose 50%-Water Inj 50 Ml Syringe IV 04/22/24 20:17 Q15MIN PRN BG 50-70 responsive npo pt Dextrose 50 ml 03/23/24 20:18 Dextrose 50%-Water Inj 50 Ml Syringe IV 04/22/24 20:17 Q15MIN PRN BG <50 OR BG <70 & pt unresponsive Doxycycline Hyclate 100 mg 03/24/24 21:00 03/29/24 08:39 Doxycycline 100 Mg Tablet PO 05/06/24 12:00 100 mg BID BRODY Administration Gabapentin 300 mg 03/23/24 22:00 03/29/24 13:21 Gabapentin 300 Mg Capsule PO 04/22/24 21:59 300 mg TID BRODY Administration Heparin Sodium (Porcine) 5,000 unit 03/23/24 22:00 03/29/24 13:21 Heparin Sod Inj 5000 Unit/Ml Vial SC 04/06/24 21:59 5,000 unit Q8HR BRODY Administration Ceftriaxone Sodium 2 gm/ 100 mls @ 200 mls/hr 03/26/24 09:00 03/29/24 08:39 Sodium Chloride IV 04/02/24 08:59 200 mls/hr QDAY BRODY Administration Insulin Glargine 40 unit 03/24/24 09:00 03/29/24 08:35 Insulin Glargine (Lantus) 5 Unit/0.05 Ml (Per 5 Units) SC 04/23/24 08:59 40 unit QDAY BRODY Administration Insulin Human Lispro 0 unit 03/29/24 13:15 03/29/24 13:21 Insulin Lispro (Admelog) 1 Unit/0.01 Ml Unit SC 04/28/24 13:14 2 unit AC BRODY Administration Protocol Lactulose 10 gm 03/25/24 11:30 03/29/24 13:21 Lactulose Syrup 20 Gm/30 Ml Udc PO 04/24/24 11:29 10 gm TID BRODY Administration Protocol Lisinopril 40 mg 03/25/24 09:00 03/29/24 08:39 Lisinopril 20 Mg Tablet PO 04/24/24 08:59 40 mg QDAY BRODY Administration Metoclopramide HCl 2.5 mg 03/26/24 14:36 Metoclopramide Inj 5 Mg/Ml Vial 2 Ml IVP 04/22/24 22:14 Q8HR PRN NAUSEA OR VOMITING Protocol Multivitamins/Minerals 15 ml 03/26/24 13:45 03/29/24 08:39 Multivitamin 15 Ml Udc PO 04/25/24 13:44 15 ml QDAY BRODY Administration Ondansetron HCl 4 mg 03/23/24 20:15 Ondansetron Inj 2 Mg/Ml Inj 2 Ml IV 04/22/24 20:14 Q6H PRN NAUSEA OR VOMITING Protocol Sodium Hypochlorite 473 ml 03/27/24 09:00 03/29/24 13:53 Sod Hypochlorite 1/4 Str 473 Ml Btl IRRIG 04/26/24 08:59 1 appln DAILY BRODY Administration Zinc Sulfate 220 mg 03/26/24 13:45 03/29/24 08:39 Zinc Sulfate 220 Mg Capsule PO 04/09/24 13:44 220 mg QDAY BRODY Administration Plan 54-year-old male with recent admission for osteomyelitis who presented with subjective fevers, generalized weakness, and worsening pain over his right foot. He was found to have osteomyelitis. Plan: #Osteomyelitis, R foot, acute on chronic #History of osteomyelitis of left foot #History of diabetic ulcers #History of TMA #History of amputations of foot #Diabetic foot ulcer, right #Debridement of right foot ulcer, 03/26 Patient with history of multiple amputations secondary to diabetic foot ulcer, uncontrolled diabetes Not septic at this time X-ray of the foot shows worsening osteomyelitis on the right Foot appears to have a dry gangrene He was recently admitted and discharged on oral antibiotics Patient was recently here for OM of left foot MRI of R foot says Early OM including distal cortical margins medial and mid cuneiforms R foot has partial amputation of foot at this time General Surgery, Dr. Mcfarland, recommends either orthopedic consult or to continue abx and that there is no surgical intervention that he can perform at this point Will consider having orthopedic looking at pt or proceeding with abx treatment ID had seen pt and had said pt may need to continue with abx with a possible change in date if pt had not taken abx as directed Spoke w/ ID, for abx, will need to restart date, 6 weeks from today, which will be 05/06/24 to complete Rocephin (2g once a day) and Doxycycline (100 BID every day) Contacted Ortho, unable to reach at this time Contacted Ortho once more, unable to reach this time 03/26 Ortho, Dr. Blake dropped note recommending MRI of L foot, recommends serial debridement, and may have Dr. Ricardo see pt as well Pt will need IV abx 6 weeks until 05/05 BC NG2D S/p Debridement of both L and R foot Discussed option of amputation, is agreeable at this time Dr. Blake, Ortho, recommended to pt that he will need BKA sooner than later Contacted Dr. Mcfarland to see further recommendations in regards to BKA for patient Dr. Mcfarland does not think pt needs BKA, and recommends another surgical opinion, will consult Dr. Pizarro MRI L foot shows cortical bone erosion at the amputation site fifth metatarsal but erosion is less compared to the MRI on 03/05/2024 Pt to also go home with home health services, will follow up with social work Will follow up with Dr. Pizarro and surgical recommendations Pt reassures that he wants BKA done if possible Plan: Will cover empirically with IV Rocephin 2 g once a day and doxycycline 100 mg twice daily until May 05, 2024 Consult ID. Appreciate recommendations General Surgery, Dr. Coy consulted Ortho consulted Continue with antibiotics #Type 2 diabetes, insulin-dependent, uncontrolled On home insulin, A1C 9.3 Plan: Resume insulin Lantus 40 units daily plus sliding scale insulin. Adjust based on the fingersticks. Monitor fingersticks ACHS. Resume home gabapentin for neuropathy Reglan as needed for nausea/possible gastroparesis #Coronary artery disease Patient explains that he has chest pain upon exertion Extensive family history of coronary artery disease, sister with stent, mother with heart disease Plan: Continue home aspirin #History of hypertriglyceridemia Was in 200s on March 06 Plan: ? Stable #Health Maintenance Disposition: MedSurg DVT prophylaxis: Heparin GI prophylaxis: None at this time Diet: Carb consistent CODE STATUS: Full Patient was seen and discussed with attending physician, Dr. Mora and my senior, Dr. Urbano Mcghee, PGY-1 Attending Provider Attestation/Addendum Face to face evaluation was performed by me. I have personally seen and examined the patient. I discussed the assessment and plan with the entire medicine team. I reviewed available medical records, imaging studies, laboratory results. I agree with the above subjective data, objective findings, assessment and plan except as corrected by me or noted below R foot OM DM R foot ulcer T2DM with hyperglycemia Abxs as ordered and planned Inuslins for DM control, needs better MD control follow clinical course
[2024-03-29] MEDS: SENNA TABLET 1 TAB PO (17:12)
[2024-03-29] MEDS: NALOXEGOL OXALATE 25 MG TABLET (NON-FORMULARY) PO (17:12)
[2024-03-29] MEDS: MAGNESIUM CITRATE 300 ML BTL PO (17:12)
--- NOTE | 2024-03-29 17:43 | PC.NURSE ---
notified of pt blood pressure of 163/106, no new orders at this time.
[2024-03-29] MEDS: NIFEdipine XL 30 MG TABCR PO (18:01)
--- NOTE | 2024-03-29 18:03 | PC.NURSE ---
Dr. Pizarro at bedside.
--- NOTE | 2024-03-29 18:10 | PC.NURSE ---
Dr. Pizarro advising pt that surgery is not necessary at this time, pt agreeable to not pursue surgery for BKA.
[2024-03-29] MEDS: MELATONIN 3 MG TABLET PO (21:37)
[2024-03-30] VITALS: BP 114/77; PULSE 84; RESP 14; TEMP 36.7; O2SAT 98
[2024-03-30 04:00] VITALS: BP 114/67; PULSE 68; RESP 18; TEMP 36.1; O2SAT 96
[2024-03-30] MEDS: HYDROcodone/APAP 5/325 TABLET 1 TAB PO (04:02)
[2024-03-30] MEDS: POLYETHYLENE GLYCOL 17 GM PACKET PO (05:24)
[2024-03-30] MEDS: GABAPENTIN 300 MG CAPSULE PO (05:24)
[2024-03-30] MEDS: HEPARIN SOD INJ 5000 UNIT/ML VIAL SC (05:24)
[2024-03-30 05:39] LABS: Basophils % (Auto) 0 % (0-2.5); Eosinophils # (Auto) 0.3 Thou/mm3 (0.0-0.5); Eosinophils % (Auto) 4 % (0-10); Hemoglobin 13.4 g/dL (13.5-16.0); Immature Granulocytes % (Auto) 0 % (0-0); Immature Granulocytes Auto 0.01 Thou/mm3 (0.00-0.00); Lymphocytes # (Auto) 2.9 Thou/mm3 (1.0-4.8); Lymphocytes % (Auto) 44 % (10-50); Mean Corpuscular HGB Conc 31.9 g/dl (31.0-37.0); Mean Corpuscular Hemoglobin 28.2 pg (25.0-35.0); Mean Corpuscular Volume 88 fL (80-100); Monocytes # (Auto) 0.4 Thou/mm3 (0.0-0.8); Monocytes % (Auto) 6 % (0-12); Neutrophils # (Auto) 3.1 Thou/mm3 (1.8-7.7); Neutrophils % (Auto) 46 % (37-80); Nucleated Red Blood Cell % 0 /100 WBC (0); Platelet Count 178 Thou/mm3 (140-440); RDW Standard Deviation 41.5 fL (35.1-43.9); Red Blood Count 4.75 Miln/mm3 (4.50-5.90); White Blood Count 6.7 Thou/mm3 (3.8-10.6)
[2024-03-30 06:33] LABS: Alanine Aminotransferase 40 U/L (10-49); Albumin, Serum 3.9 gm/dL (3.5-5.0); Albumin/Globulin Ratio 1.4 (1.2-2.2); Alkaline Phosphatase 119 U/L (46-116); Anion Gap 6 (7-16); Aspartate Amino Transferase 36 U/L (0-34); BUN/Creatinine Ratio 17 Ratio (12-20); Bilirubin,Total 0.2 mg/dL (0.3-1.2); Blood Urea Nitrogen 15 mg/dL (9-23); Calcium 9.5 mg/dL (8.3-10.6); Calcium (Corrected) 9.6 mg/dL (8.5-10.1); Carbon Dioxide 24.3 mMol/L (20.0-31.0); Chloride 110 mMol/L (98-107); Creatinine (Component) 0.9 mg/dL (0.6-1.3); Estimated Creatinine Clearance 125.5 mL/min (>60); Globulin 2.7 gm/dL (2.3-3.5); Glucose 116 mg/dL (74-106); Magnesium 2.1 mg/dL (1.6-2.6); Osmolality,Calculated 281 (275-295); Phosphorous 3.8 mg/dL (2.4-5.1); Potassium 4.2 mMol/L (3.4-5.1); Sodium 140 mMol/L (136-145); Total Protein 6.6 gm/dL (5.7-8.2); eGFR > 60 See Note
[2024-03-30 08:00] VITALS: BP 182/69; PULSE 79; RESP 18; TEMP 37.2; O2SAT 95
[2024-03-30 08:31] VITALS: BP 182/96; PULSE 79
[2024-03-30] MEDS: ZINC SULFATE 220 MG CAPSULE PO (08:31)
[2024-03-30] MEDS: Lisinopril 20 MG TABLET 40 MG PO (08:31)
[2024-03-30] MEDS: MULTIVITAMIN 15 ML UDC PO (08:32)
[2024-03-30] MEDS: NALOXEGOL OXALATE 25 MG TABLET (NON-FORMULARY) PO (08:32)
[2024-03-30] MEDS: DOXYCYCLINE 100 MG TABLET PO (08:32)
[2024-03-30] MEDS: SENNA TABLET 1 TAB PO (08:32)
[2024-03-30] MEDS: INSULIN GLARGINE (Lantus) 5 UNIT/0.05 ML (PER 5 UNITS) 40 UNIT SC (08:32)
[2024-03-30] MEDS: ASPIRIN EC 81 MG TABEC PO (08:32)
[2024-03-30] MEDS: ASCORBIC ACID 250 MG TABLET 500 MG PO (08:32)
[2024-03-30] MEDS: cefTRIAXone 2 GM in SODIUM CHLORIDE 0.9% (P) 100 ML IV (08:32)
[2024-03-30 12:00] VITALS: BP 153/83; PULSE 79; RESP 20; TEMP 36.4; O2SAT 100
[2024-03-30] MEDS: INSULIN LISPRO (AdmeLOG) 1 UNIT/0.01 ML UNIT SC (12:12)
--- NOTE | 2024-03-30 12:38 | ESCONSULT_ITS ---
HPI Consult details History of present illness: 54M with HTN, DMII, CAD admitted 03/23 with fever and right lower extremity pain. Patient has a history of R TMA in 2019, had been well healed but then he had difficulty obtaining a proper prostatic and developed a wound to the TMA site. Patient has been treated with excisional debridement, wound care, IV antibiotics and underwent MRI 03/27 which showed improved osteomyelitis of the right fifth metatarsal. General surgery was consulted for consideration of BKA PMH: HTN, DM2, CAD PSH: Four amputations related to diabetic foot ulcers between 2015 and 2022 Meds: ASA 81, no other antiplatelet or anticoagulation Allergies: Vancomycin Review of Systems Review of Systems ROS Unobtainable: All systems reviewed & no additional complaints except as documented Meds Home Medications and Allergies Home Medications ?Medication ?Instructions ?Recorded ?Confirmed ?Type gabapentin 300 mg capsule 300 mg PO TID 09/27/17 03/28/24 History Allergies Allergy/AdvReac Type Severity Reaction Status Date / Time vancomycin Allergy Severe Swelling Verified 03/23/24 17:26 of Lip/Tongue/Throat Exam Vital Signs Temp Pulse Resp BP Pulse Ox O2 Del Method 97.5 F 79 20 153/83 H 100 Room Air 03/30/24 12:00 03/30/24 12:00 03/30/24 12:00 03/30/24 12:00 03/30/24 12:00 03/30/24 12:00 Constitutional Constitutional: no acute distress Routine Respiratory Exam Respiratory: Present no resp distress Routine Extremities Exam Comments: TMA site well-healed with no erythema no fluctuance or tenderness. There is an ulceration at the plantar surface which is healing well with no necrotic tissue, no erythema, no drainage, no fluctuance Results Results: Laboratory Laboratory results: results reviewed Results: Imaging Imaging narrative: MRI reviewed Assessment & Plan Plan 54M with HTN, DMII, CAD admitted 03/23 with fever and right lower extremity pain, s/p debridement and IV antibiotics with improvement in symptoms and appearance. I explained to patient that the wound is healing very well, and even on MRI the osteomyelitis shows improvement. I do not recommend any further surgery for now and give him the information for [facility], in the hopes they can facilitate a better fitting process
--- NOTE | 2024-03-30 13:12 | CHAP ---
09:30 AM Visited by spiritual care volunteer Provided prayer for Patient.
--- NOTE | 2024-03-30 16:41 | ESDS_ITS ---
<Statement entered by Han Clement MD - 03/30/24 17:00> Patient is discharged on home health with PICC line for continuation of IV antibiotic Rocephin 2 g once a day and doxycycline p.o. 100 mg 2 times a day until May 06 for osteomyelitis treatment. He is medically stable for discharge. -- I saw and examined the patient, and I agree with current management stated by Dr Taz DO,PGY1. Plan of care was discussed with the attending physician and resident physician. Disclaimer: Despite multiple revisions, due to the dictation software being used, the document bellow may not be free of grammatical errors including phonetic/typographic errors. However, this does not deter from our commitment to providing health care in the patient's best interest in mind. Dr. Gee MD, PGY 2 Planned Discharge Date 03/30/24 DS: Providers Provider Date of admission: 03/24/24 08:18 Primary care physician: Physician No Primary/Family Admitting Provider: Caio Naqvi MD Attending Provider on Admission: Guille Flores DO Consults: 03/23/24 20:21 Consult to Infectious Diseases Stat Comment: Recurrent OM Consulting Provider: Robbie Bal 03/24/24 11:15 Referral Wound Care Routine Comment: Instructions: Right foot open wound, left foot open wound 03/24/24 12:55 Referral Nutritional Services Routine Comment: Instructions: DM with bilateral foot wounds 03/25/24 11:28 Consult to Orthopedic Routine Comment: Contacted for OM consult,unable to reach right now Consulting Provider: Troy Blake 03/25/24 22:29 Consult to Podiatry Routine Comment: Consulting Provider: 03/29/24 16:14 Consult to General Surgery Routine Comment: OM Consulting Provider: Rosalinda Pizarro 03/29/24 23:03 Consult to General Surgery Routine Comment: Consulting Provider: Bruna Garcia Instructions: Patient has had nothing but trouble since tarsometatarsal disarticulation 5 years ago. Multiple episodes of infection. The frequency is increasing. Could you take a look at him and see if he is a candidate for below-knee amputation I think that is by far the best way to go in light of the multiple infections and the fact that the frequency is increasing. He is very discouraged. I told him that most people with below-knee amputations doing very well Attending Provider on DC: Shahriar Mora MD Discharging Provider: Shahriar Mora MD DS: Diagnosis Problem List Completed Was Problem List Reviewed/Reconciled?: Yes Hospital Course Hospital Course Hospital course: 54-year-old male past medical history of type 2 diabetes on insulin, hypertension, diabetic neuropathy, coronary artery disease who was admitted for osteomyelitis of the right foot. Patient had presented to the ED with a chief complaint of subjective fevers, chills, generalized weakness, nausea, and worsening pain on the right lower extremity. Patient was recently admitted for left lower extremity osteomyelitis for which he was discharged on oral antibiotics in which she was compliant with. In the ED, he had vital signs that were stable and he was afebrile. Labs showed no leukocytosis and glucose was WNL. X-ray of the right foot, showed worsening osteomyelitis. He was admitted for IV antibiotics and ID evaluation. Patient was then admitted to the floors. While on the floors, general surgery was consulted, Dr. Zamora, who had suggested to get an orthopedic consult as he did not think patient needed any surgical intervention at the time. Dr Blake, orthopedist was consulted and had performed debridement of both left and right feet, and had told the patient he will be needing a BKA on the right lower extremity sooner than later. Dr. Zamora was spoken with again and suggested to get another surgical opinion, Dr. Pizarro, general surgery, because he believes patient's limb is also salvageable. Dr. Pizarro seen patient and also believed limb was salvageable, and told patient this. Patient was then relayed this information and was agreeable with IV antibiotics. Patient was discharged on home health and was told to continue antibiotic treatment, Rocephin and doxycycline until April 2024 for osteomyelitis. Wound care to include dakins with Therahoney dressing changes as well. Patient to follow-up within 1 week. Follow-up on April 01, 2024 at 9:30am with Dr. Mcghee, PCP at [facility]. Take all home medication as prescribed Weekly CBC,ESR and CRP until last week of completion of antibiotics Patient will need to continue IV ceftriaxone 2 g once a day via home health and doxycycline p.o. 100 twice daily until May 06, 2024 for osteomyelitis In case of any emergency call 911 or come back to the ED Follow up with a group work program aide within one week from discharge Follow wound care instructions #Osteomyelitis, R foot, acute on chronic #History of osteomyelitis of left foot #History of diabetic ulcers #History of TMA #History of amputations of foot #Diabetic foot ulcer, right #Debridement of right foot ulcer, 03/26 #Type 2 diabetes, insulin-dependent, uncontrolled #Coronary artery disease #History of hypertriglyceridemia Patient seen and care discussed with my senior resident, Dr. Clement , and my attending physician, Dr. Morgan Mcghee, PGY-1 Time Spent with Patient Time attestation: Total time spent providing and/or coordinating discharge services: Time spent: Greater than 30 minutes Exam Vital Signs Temp Pulse Resp BP Pulse Ox O2 Del Method 97.5 F 79 20 153/83 H 100 Room Air 03/30/24 12:00 03/30/24 12:00 03/30/24 12:00 03/30/24 12:00 03/30/24 12:00 03/30/24 12:00 Narrative Exam General: AAOx3, NAD, HEENT: Moist mucous membranes, conjunctiva clear, EOMI, PERRLA, Cardiovascular: S1, S2, radial pulses +2 bilat, RRR Pulmonary: CTAB bilat no cough, no wheezing GI: No tenderness to light or deep palpitation, abdomen soft, bowel sounds present Extremities: No presence of trace or pitting edema in lower extremities bilaterally, dorsalis pedis pulses +2 bilaterally. Presence of previous partial of R foot (half of foot is amputated). Ulcer present on R dorsal foot, open wound with no active drainage at this time, covered with dressing. Presence of dressing of lateral L forefoot. Presence of previous TMAs of L foot. S/P Debridments of both feet Neuro: AAOx3, no focal motor or sensory deficits in the UE or LE bilat Psych: Good judgement, thought and behavior. Cooperative Discharge Plan Plan Patient Disposition: Home w/HOME HEALTH Care Plan Goals: Appointment is March 30, 2024 at 9:30am with Dr. Vaughan, PCP at [facility]. Take all home medication as prescribed Weekly CBC,ESR and CRP until last week of completion of antibiotics Patient will need to continue IV ceftriaxone 2 g once a day and doxycycline p.o. 100 twice daily until May 06, 2024 for osteomyelitis In case of any emergency call 911 or come back to the ED Follow up with a podaitriest within one week from discharge Follow wound care instructions Prescriptions/Referrals Prescriptions/Med Rec: New ascorbic acid (vitamin C) [Vitamin C] 500 mg capsule, extended release 500 mg PO QDAY 14 Days Qty: 14 0RF Continued gabapentin 300 MG capsule 300 mg PO TID magnesium 200 mg tablet 200 mg PO QDAY Qty: 10 0RF multivitamin with folic acid [Tab-A-John] 400 mcg Tablet 1 tab PO QDAY Qty: 30 0RF acetaminophen 325 mg Tablet 650 mg PO Q6H PRN (Reason: Pain Scale 1-3 (Mild) Qty: 14 0RF aspirin 81 mg Tablet,Delayed Release (Dr/Ec) 81 mg PO QDAY Qty: 30 0RF lisinopril 40 mg tablet 40 mg PO QDAY Qty: 30 0RF insulin glargine 100 unit/mL (3 mL) insulin pen 40 unit subcut QAM Qty: 15 2RF insulin aspart U-100 100 unit/mL (3 mL) insulin pen 12 unit subcut TID Qty: 15 0RF Changed lactulose 20 GM/30 ML solution 30 ml PO EVERYOTHERDAY PRN (Reason: constipation) 5 Days Qty: 0 0RF Discontinued levofloxacin 750 mg tablet 750 mg PO QDAY 34 Days Qty: 34 0RF No Action polyethylene glycol 3350 [Miralax] 17 gram/dose powder 4 g PO QDAY MDD 4 grams Qty: 238 5RF docusate sodium [Colace] 100 mg capsule 100 mg PO BID MDD 200 mg Qty: 60 5RF carvedilol 3.125 mg tablet 3.125 mg PO BID MDD 6.25 mg Qty: 60 0RF Rx Instructions: must administer with a meal/food doxycycline hyclate 100 mg capsule 100 mg PO BID 37 Days Qty: 74 0RF Referrals: No Primary/Family,Physician [Primary Care Provider] - Patient/Caregiver Discharge Instructions Other Discharge Activity Instructions:: 1) Follow up at [facility]. [address] [place] [address]. Call [phone] for appointment. 2) Follow up with [facility] for refitting of foot wear. Call [phone] 3)Ambulating - use heel of boot feet to ambulate to avoid pressure over wound sites. 4) Elevate above heart level for swelling 5) Wound care to right side of foot and left outer foot: May shower than change dressing -Wash hands with soap and water -Remove old dressing -Cleanse wounds with wound cleanser spray and pat dry with gauze. -Wash hands again. -Apply thin layer of therahoney gel and cover with foam dressing - Change once a day and as needed for falling off Education Materials: Nutrition for Wound Healing, Changing Dressing Dc, Wound Care Dc, Preventing Surgical Site Infections Print Language: Yakut Stand Alone Forms: [employer] Award Info., Patient Portal Info Letter Discharge Order Discharge Orders: Discharge (Routine); Ordered 03/30/24 Ordered By: Han Clement Quality Discharge Quality Measures VTE prophylaxis (Heparin) Attestestation Attestation Face to face evaluation was performed by me. I have personally seen and examined the patient. I discussed the assessment and plan with the entire medicine team. I reviewed available medical records, imaging studies, laboratory results. I agree with the above subjective data, objective findings, assessment and plan except as corrected by me or noted below R foot OM DM R foot ulcer T2DM with hyperglycemia Abxs as planned fu with PCP Needs better DM controlas well
--- NOTE | 2024-03-31 12:29 | PC.CC ---
Call from Lana with [facility]. Pt D/c on 03/30, antibiotics not delivered. Pt does not have primary, [facility] attempted to schedule appointment pt declined. Per Lana she will attempt to make contact with pts sister to encourage follow through with appointment to establish care with [facility].
--- NOTE | 2024-04-01 09:36 | PC.CM ---
Checked with [facility]. Cecille from [facility] responded on [employer] that the meds were delivered.
--- NOTE | 2024-04-02 12:30 | PC.CM ---
Spoke to Lana at [facility] that the start of care date was 03/31/24 (pt was discharged on 03/30/24). Pt is getting IV abx from 03/31 and pt went to [facility] on 04/01/[address] radford. referral is complete.
== END 2024-03-30 13:09 | disposition home health service (06) | DRG 344 ==
LOC: SERX 20:56 → SERHOLD 03-24 06:35 → S3NX 03-24 06:35 → S3SX 03-26 17:00
PROVIDERS: Radiology Diagnostic Radiology; Student in an Organized Health Care Education/Training Program; Admitting Provider Student in an Organized Health Care Education/Training Program; Emergency Provider Emergency Medicine; Visit Provider Student in an Organized Health Care Education/Training Program
DX: E11.69 Type 2 diabetes mellitus with other specified complication (principal); M86.171 Other acute osteomyelitis, right ankle and foot; E11.52 Type 2 diabetes mellitus with diabetic peripheral angiopathy with gangrene; I25.10 Atherosclerotic heart disease of native coronary artery without angina pectoris; E11.65 Type 2 diabetes mellitus with hyperglycemia; E11.40 Type 2 diabetes mellitus with diabetic neuropathy, unspecified; L97.519 Non-pressure chronic ulcer of other part of right foot with unspecified severity; E11.621 Type 2 diabetes mellitus with foot ulcer; I10 Essential (primary) hypertension; M86.671 Other chronic osteomyelitis, right ankle and foot; E78.1 Pure hyperglyceridemia; L84 Corns and callosities; Z89.431 Acquired absence of right foot; Z79.82 Long term (current) use of aspirin; Z79.4 Long term (current) use of insulin; Z79.899 Other long term (current) drug therapy
CPT/HCPCS: 36415; 73630; 73718; 73721; 80048; 80053; 83605; 83690; 83735; 84100; 84145; 85025; 85610; 85652; 85730; 86140; 87040; 87081; 96365; 96367; 96372; 99285; C1751; C1894; G0378; J0696; J1642; J1643; J1815; J2765; J3490; J7050; A9270; J1644

== ENCOUNTER 2024-05-12 13:35 | Emergency (ER) | payer MEDICAID, SELFPAY ==
[2024-05-12 13:49] VITALS: BP 196/102; PULSE 91; RESP 18; TEMP 36.9; O2SAT 99; BMI 29.2
--- NOTE | 2024-05-12 14:05 | XR_ITS ---
Examination: Foot, right, 3 views Technique: AP, oblique, lateral views foot, 3 views Date and time of exam: May 12, 2024 1430 hours Comparison March 23, 2024 INDICATIONS: Diabetic, nonhealing blister on the right foot note is beginning 3 days ago. FINDINGS: There remains cortical erosion medial distal medial cuneiform On the lateral view there is erosion involving the plantar surface of the medial cuneiform No fracture Severe osteopenia IMPRESSION: Osteomyelitis medial cuneiform, consider MRI foot without contrast follow-up
--- NOTE | 2024-05-12 14:05 | PD.EDRME ---
Rapid Medical Screening Exam RME Arrival date/time: 05/12/24 13:35 54-year-old male who recently underwent treatment for osteomyelitis of his right foot requiring PICC line and antibiotics presents with concerns for worsening infection Chief Complaint: Wound/Laceration Vital signs: Vital Signs Temperature 98.5 F 05/12/24 13:49 Pulse Rate 91 05/12/24 13:49 Respiratory Rate 18 05/12/24 13:49 Blood Pressure 196/102 H 05/12/24 13:49 Pulse Oximetry (%) 99 05/12/24 13:49 Oxygen Delivery Method Room Air 05/12/24 13:49
[2024-05-12 14:21] LABS: Lactate (Lactic Acid) 1.6 mMol/L (0.4-2.0)
[2024-05-12 14:26] LABS: Basophils % (Auto) 0 % (0-2.5); Eosinophils # (Auto) 0.2 Thou/mm3 (0.0-0.5); Eosinophils % (Auto) 3 % (0-10); Hematocrit 42.9 % (41.0-53.0); Hemoglobin 14.4 g/dL (13.5-16.0); Immature Granulocytes % (Auto) 1 % (0-0); Immature Granulocytes Auto 0.05 Thou/mm3 (0.00-0.00); Lymphocytes # (Auto) 1.9 Thou/mm3 (1.0-4.8); Lymphocytes % (Auto) 27 % (10-50); Mean Corpuscular HGB Conc 33.6 g/dl (31.0-37.0); Mean Corpuscular Hemoglobin 27.5 pg (25.0-35.0); Mean Corpuscular Volume 82 fL (80-100); Monocytes # (Auto) 0.4 Thou/mm3 (0.0-0.8); Monocytes % (Auto) 6 % (0-12); Neutrophils # (Auto) 4.4 Thou/mm3 (1.8-7.7); Neutrophils % (Auto) 63 % (37-80); Nucleated Red Blood Cell % 0 /100 WBC (0); Platelet Count 234 Thou/mm3 (140-440); RDW Standard Deviation 38.5 fL (35.1-43.9); Red Blood Count 5.24 Miln/mm3 (4.50-5.90); White Blood Count 6.9 Thou/mm3 (3.8-10.6)
[2024-05-12 15:11] LABS: Sed Rate (ESR) 55 mm/hr (0-20)
[2024-05-12 15:18] LABS: Alanine Aminotransferase 19 U/L (10-49); Albumin, Serum 4.5 gm/dL (3.5-5.0); Albumin/Globulin Ratio 1.5 (1.2-2.2); Alkaline Phosphatase 352 U/L (46-116); Anion Gap 7 (7-16); Aspartate Amino Transferase < 10 U/L (0-34); BUN/Creatinine Ratio 13 Ratio (12-20); Bilirubin,Total 0.3 mg/dL (0.3-1.2); Blood Urea Nitrogen 14 mg/dL (9-23); C-Reactive Protein 6.1 mg/dL (0.0-0.9); Calcium 9.3 mg/dL (8.3-10.6); Calcium (Corrected) 9.3 mg/dL (8.5-10.1); Carbon Dioxide 26.1 mMol/L (20.0-31.0); Chloride 101 mMol/L (98-107); Creatinine (Component) 1.1 mg/dL (0.6-1.3); Osmolality,Calculated 289 (275-295); Potassium 4.6 mMol/L (3.4-5.1); Procalcitonin 0.08 ng/ml (0.0-0.49); Sodium 134 mMol/L (136-145); Total Protein 7.5 gm/dL (5.7-8.2); eGFR > 60 See Note
[2024-05-12 15:19] LABS: Glucose 480 mg/dL (74-106)
[2024-05-12 15:24] LABS: Collection Type, Urine Clean Catch; Squamous Epithelial Cell,Urine 0 /hpf (0-5)
[2024-05-12 15:27] LABS: Bilirubin,Urine Negative (Negative); Blood,Urine Negative (Negative); Clarity,Urine Clear (Clear/Hazy); Color,Urine Colorless (Lt Yel-Yel); Culture Indicated,Urine Not Indicated; Glucose, Urine 4+ (Negative); Ketones,Urine Negative (Negative); Leukocyte Esterase,Urine Negative (Negative); Nitrite,Urine Negative (Negative); Protein,Urine Trace (Neg - Trace); RBC,Urine 1 /hpf (0-3); Specific Gravity,Urine 1.032 (1.001-1.035); Urobilinogen,Urine Negative mg/dL (0.0-1.0); WBC,Urine < 1 /hpf (0-5)
[2024-05-12 15:34] LABS: Amphetamine/Methamp Scrn,U Negative (Negative); Barbiturate Screen,Urine Negative (Negative); Benzodiazepines Screen,Urine Negative (Negative); Benzoylecgonine Screen, Ur Negative (Negative); Fentanyl Screen,Urine Negative (Negative); Opiate Screen,Urine Negative (Negative); THC Screen,Urine Negative (Negative)
--- NOTE | 2024-05-12 17:08 | PD.EDADULT ---
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 Patient states that when his foot has been weeping, he has had some swelling in his legs and feels it is getting worse. Patient is afebrile nontoxic-appearing not in any acute distress who states he is having trouble keeping his blood sugars low. RME / HPI RME / HPI narrative: 05/12/24 13:35 54-year-old male who recently underwent treatment for osteomyelitis of his right foot requiring PICC line and antibiotics presents with concerns for worsening infection Related Data Home Medications ?Medication ?Instructions ?Recorded ?Confirmed gabapentin 300 mg capsule 300 mg PO TID 09/27/17 04/15/24 Previous Rx's ?Medication ?Instructions ?Recorded magnesium 200 mg tablet 200 mg PO QDAY #10 tabs 01/06/24 acetaminophen 325 mg tablet 650 mg (2 x 325 mg) PO Q6H PRN 03/12/24 Pain Scale 1-3 (Mild #14 tabs aspirin 81 mg tablet,delayed 81 mg PO QDAY #30 tabs 03/12/24 release insulin aspart U-100 100 unit/mL 12 unit (0.12 mL) subcut TID #15 mL 03/12/24 (3 mL) subcutaneous pen insulin glargine 100 unit/mL (3 40 unit (0.4 mL) subcut QAM #15 mL 03/12/24 mL) subcutaneous pen lisinopril 40 mg tablet 40 mg PO QDAY #30 tabs 03/12/24 multivitamin with folic acid 400 1 tab PO QDAY #30 tabs 03/12/24 mcg tablet (Tab-A-John) lactulose 20 gram/30 mL oral 30 ml PO EVERYOTHERDAY PRN 03/26/24 solution constipation 5 days #0 mL docusate sodium 100 mg capsule 100 mg PO BID constipation #60 caps 04/01/24 (Colace) polyethylene glycol 3350 17 4 g PO QDAY constipation #238 grams 04/01/24 gram/dose oral powder (Miralax) blood sugar diagnostic (Accu-Chek #100 ea 04/15/24 Guide test strips) blood-glucose meter (Accu-Chek #1 ea 04/15/24 Guide Glucose Meter) carvedilol 12.5 mg tablet (Coreg) 12.5 mg PO BID #60 tabs 04/15/24 gabapentin 300 mg capsule 300 mg PO TID #90 caps 04/15/24 lactulose 20 gram oral packet 20 g PO BID #30 ea 04/15/24 lancets (Accu-Chek Softclix #100 ea 04/15/24 Lancets) Allergies Allergy/AdvReac Type Severity Reaction Status Date / Time vancomycin Allergy Severe Swelling Verified 04/15/24 08:38 of Lip/Tongue/Throat Review of Systems Review of Systems Narrative Review of Systems: GEN: No fever, no chills, no weight loss EYES: No discharge, no visual changes, no pain HEENT: No ear pain, no congestion, no sore throat PULM: No shortness of breath, no cough, no congestion CV: No chest pain, no dyspnea on exertion, no palpitations GI: No nausea, no vomiting, no diarrhea, no pain, no constipation : No frequency, no urgency, no dysuria MUSC/SKEL: No joint pain, no back pain SKIN: Open wound to the bottom of his right foot. No rash PSYCH: No hallucinations, no depression HEME/LYMPH: No easy bleeding or bruising tendencies NEURO: No weakness, no headache Past Medical History Past Medical History NEUROLOGIC: Positive Neurological Disorders (diabetic neuropathy) and Head Trauma (fall 3 mons ago- bruising, knots on back of head, seeing double- okay now.) CARDIAC: Positive Peripheral Vascular Disease, Hypercholesterolemia and Hypertension; Negative Cardiac Disorders or Congestive Heart Failure RESPIRATORY: Negative Chronic Obstructive Pulmonary Disease (COPD) or Asthma GASTROINTESTINAL: Negative Gastrointestinal Bleed, Ulcer or Hemorrhoids GENITOURINARY: Negative Renal Disease MUSCULOSKELETAL: Positive Musculoskeletal Disorders and Osteomyelitis (bilateral feet); Negative Arthritis ENT: Positive Head Trauma (fall 3 mons ago- bruising, knots on back of head, seeing double- okay now.) ENDOCRINE: Positive Endocrine Disorders and Diabetes Mellitus Type 2; Negative Diabetes Mellitus Type 1 HEMATOLOGIC: Negative Blood Disorders or Sickle Cell Disease PSYCHO/SOCIAL: Positive Anxiety OTHER HISTORY: Positive Falls (hit back of head, went to [facility].) and MRSA (foot right); Negative Blood Transfusions or Anesthesia Reactions Family History FAMILY HISTORY: Positive Family Cancer (mom- motuth cancer. dad- lung cancer.); Negative Family Psychiatric Problems, Family Respiratory Disorders, Family Cardiac Disorders, Family Gastrointestinal Problems or Family Anesthesia Reaction Surgical History SURGICAL: Positive Amputation; Negative Cardiac Surgery Social History SMOKING STATUS: Former smoker SECOND HAND EXPOSURE: No (5 cig/day x10 yrs- QUIT 15 yrs ago) SUBSTANCE USE: does not use ED Exam Narrative Physical exam: [General: Not in any acute distress Head normocephalic HEENT: Within acceptable limits Neck is supple nontender Chest equal chest rise nontender to palpation Respiratory: Clear to auscultation no wheezes crackles or rubs CV: Rate rhythm is regular no murmurs rubs or clicks Abdomen is soft nontender no masses positive bowel sounds all 4 quadrants Back: No CVA tenderness no spinous process tenderness from cervical spine thoracic and lumbar spine Skin: Right foot: Toes are completely absent amputated, suture line for amputation is clean dry and intact the patient has an open ulceration over the second distal metatarsal region. There is a small amount of skin hanging loosely from the areas no surrounding erythema or edema there is no exudate no surrounding warmth to touch. Otherwise skin is intact no petechiae rash induration ulceration or crepitus Extremities: Moving all extremity against resistance cap refill less than 2 seconds neurosensory intact Neuro: Awake alert oriented x3 Glascow coma 15 no focal deficits] Course Quality Measures none Orders Category Date Time Status XR foot comp RT min 3V Stat Exams 05/12/24 14:05 Completed Blood Culture (Lab) Stat Lab 05/12/24 14:10 Received CBC Stat Lab 05/12/24 14:10 Completed CMP [Comprehensive Metabolic Panel] Stat Lab 05/12/24 14:10 Completed CRP [C-Reactive Protein] Stat Lab 05/12/24 14:10 Completed Drug Screen,Urine Stat Lab 05/12/24 15:03 Completed ESR [Sed Rate (ESR)] Stat Lab 05/12/24 14:10 Completed Lactic Acid [Lactate (Lactic Acid)] Stat Lab 05/12/24 14:10 Completed Procalcitonin Stat Lab 05/12/24 14:10 Completed UA, C/S IF [Urinalysis, C/S if Indicated] Stat Lab 05/12/24 15:05 Completed Insulin Regular Med 05/12/24 17:08 Once 5 unit SC X1 ONE Vital Signs Vital signs: Vital Signs Temperature 98.5 F 05/12/24 13:49 Pulse Rate 91 05/12/24 13:49 Respiratory Rate 18 05/12/24 13:49 Blood Pressure 196/102 H 05/12/24 13:49 Pulse Oximetry (%) 99 05/12/24 13:49 Oxygen Delivery Method Room Air 05/12/24 13:49 [facility] Patient data External records reviewed:: [facility] previous records Clinical information provided by:: patient Social determinants that could affect healthcare access:: none Patient has the following chronic illnesses:: Poorly maintained diabetes foot/toe amputations How is presenting disease/condition affected by chronic disease/condition?: exacerbated by Evaluation data The following diagnostics were reviewed and interpreted by me:: lab results and radiology exam(s) Lab and/or radiology exams considered but not ordered:: CBC shows no acute leukocytosis anemia thrombocytopenia CMP shows elevated blood glucose at 480, no other electrolyte imbalances renal impairment transaminitis or T. bili elevation CRP is 6.1 ESR is 50s. X-ray shows osteomyelitis but appears to be no worsening than the prior imaging. Interpretation Summary: Patient is nervous about his foot however I see no acute infection source patient actually states he has a follow-up with his appointment tomorrow, patient be discharged home for follow-up. No interventions required at this time. Medications Medications considered but not ordered:: None Medication administrations:: None Consultations Consultation(s) initiated? (list below): No Diagnosis Differential Diagnosis ED Complaint MDM: Osteomyelitis cellulitis abscess of the foot Most likely diagnosis given after review of the tests above:: Open foot ulceration chronic Admission Indicated Admission indicated?: not indicated Explain why admission is indicated or not indicated:: Stable for outpatient follow-up Admission Request Was there a request for admission?: No Disposition Plan Disposition Plan: Discharge Discharge Attestation Discharge Attestation: The patient and all family members were given an opportunity to ask questions and understood the discharge instructions. Discharge instructions specifically effects, indications for sooner follow up or return to the emergency department, and the expected course of current diagnosis. Patient condition: Stable Medical Decision Making Differential Diagnosis Differential Diagnosis: Osteomyelitis cellulitis abscess of the foot Lab Data 05/12/24 14:10 05/12/24 14:10 Labs: Lab Results 05/12/24 05/12/24 05/12/24 Range/Units 14:10 15:03 15:05 WBC 6.9 (3.8-10.6) Thou/mm3 RBC 5.24 (4.50-5.90) Miln/mm3 Hgb 14.4 (13.5-16.0) g/dL Hct 42.9 (41.0-53.0) % MCV 82 (80-100) fL MCH 27.5 (25.0-35.0) pg MCHC 33.6 (31.0-37.0) g/dl RDW Std Deviation 38.5 (35.1-43.9) fL Plt Count 234 (140-440) Thou/mm3 Neut % (Auto) 63 (37-80) % Lymph % (Auto) 27 (10-50) % [place] % (Auto) 6 (0-12) % Eos % (Auto) 3 (0-10) % Baso % (Auto) 0 (0-2.5) % Neut # (Auto) 4.4 (1.8-7.7) Thou/mm3 Lymph # (Auto) 1.9 (1.0-4.8) Thou/mm3 [place] # (Auto) 0.4 (0.0-0.8) Thou/mm3 Eos # (Auto) 0.2 (0.0-0.5) Thou/mm3 Baso # (Auto) 0.0 (0.0-0.2) Thou/mm3 Immature Gran # (Auto) 0.05 H (0.00-0.00) Thou/mm3 Absolute Nucleated RBC 0.00 (0.00-0.00) Thou/mm3 Immature Gran % 1 H (0-0) % Nucleated RBC % 0 (0) /100 WBC ESR 55 H (0-20) mm/hr Sodium 134 L (136-145) mMol/L Potassium 4.6 (3.4-5.1) mMol/L Chloride 101 (98-107) mMol/L Carbon Dioxide 26.1 (20.0-31.0) mMol/L Anion Gap 7 (7-16) BUN 14 (9-23) mg/dL Creatinine 1.1 (0.6-1.3) mg/dL Estim Creat Clear Calc 105.0 (>60) mL/min eGFR > 60 (60 - ) See Note BUN/Creatinine Ratio 13 (12-20) Ratio Glucose 480 H* (74-106) mg/dL Calculated Osmolality 289 (275-295) Lactic Acid 1.6 (0.4-2.0) mMol/L Calcium 9.3 (8.3-10.6) mg/dL Corrected Calcium 9.3 (8.5-10.1) mg/dL Total Bilirubin 0.3 (0.3-1.2) mg/dL AST < 10 (0-34) U/L ALT 19 (10-49) U/L Alkaline Phosphatase 352 H (46-116) U/L C-Reactive Prot, Quant 6.1 H (0.0-0.9) mg/dL Total Protein 7.5 (5.7-8.2) gm/dL Albumin 4.5 (3.5-5.0) gm/dL Globulin 3.0 (2.3-3.5) gm/dL Albumin/Globulin Ratio 1.5 (1.2-2.2) Procalcitonin 0.08 (0.0-0.49) ng/ml Ur Collection Type Clean Catch Urine Color Colorless A (Lt Yel-Yel) Urine Clarity Clear (Clear/Hazy) Urine pH 6.0 (5.0-7.0) Ur Specific [place] 1.032 (1.001-1.035) Urine Protein Trace (Neg - Trace) Urine Glucose (UA) 4+ A (Negative) Urine Ketones Negative (Negative) Urine Blood Negative (Negative) Urine Nitrite Negative (Negative) Urine Bilirubin Negative (Negative) Urine Urobilinogen (Auto) Negative (0.0-1.0) mg/dL Ur Leukocyte Esterase Negative (Negative) Urine RBC 1 (0-3) /hpf Urine WBC < 1 (0-5) /hpf Ur Squamous Epith Cells 0 (0-5) /hpf Urine Bacteria None (None) Ur Culture Indicated? Not Indicated Urine Opiates Screen Negative (Negative) Urine Fentanyl Screen Negative (Negative) Ur Barbiturates Screen Negative (Negative) U Amphetamin/Meth Scrn Negative (Negative) U Benzodiazepines Scrn Negative (Negative) U Cocaine Metab Screen Negative (Negative) U Marijuana (THC) Screen Negative (Negative) Discharge Plan Plan Patient Disposition: HOME (Self Care) Patient condition on transfer: Stable Prescriptions/Referrals Prescriptions/Med Rec: No Action polyethylene glycol 3350 [Miralax] 17 gram/dose powder 4 g PO QDAY MDD 4 grams Qty: 238 5RF docusate sodium [Colace] 100 mg capsule 100 mg PO BID MDD 200 mg Qty: 60 5RF carvedilol [Coreg] 12.5 mg tablet 12.5 mg PO BID Qty: 60 0RF Rx Instructions: must administer with a meal/food lactulose 20 gram packet 20 g PO BID Qty: 30 0RF gabapentin 300 mg capsule 300 mg PO TID Qty: 90 0RF (DME) blood-glucose meter [Accu-Chek Guide Glucose Meter] Misc See Rx Instructions .Route Qty: 1 0RF Rx Instructions: As directed (DME) Accu-Chek Guide test strips Strip See Rx Instructions .Route Qty: 100 2RF Rx Instructions: As directed (DME) lancets [Accu-Chek Softclix Lancets] Misc See Rx Instructions .Route Qty: 100 2RF Rx Instructions: As directed gabapentin 300 MG capsule 300 mg PO TID magnesium 200 mg tablet 200 mg PO QDAY Qty: 10 0RF multivitamin with folic acid [Tab-A-John] 400 mcg Tablet 1 tab PO QDAY Qty: 30 0RF acetaminophen 325 mg Tablet 650 mg PO Q6H PRN (Reason: Pain Scale 1-3 (Mild) Qty: 14 0RF aspirin 81 mg Tablet,Delayed Release (Dr/Ec) 81 mg PO QDAY Qty: 30 0RF lisinopril 40 mg tablet 40 mg PO QDAY Qty: 30 0RF insulin glargine 100 unit/mL (3 mL) insulin pen 40 unit subcut QAM Qty: 15 2RF insulin aspart U-100 100 unit/mL (3 mL) insulin pen 12 unit subcut TID Qty: 15 0RF lactulose 20 GM/30 ML solution 30 ml PO EVERYOTHERDAY PRN (Reason: constipation) 5 Days Qty: 0 0RF Referrals: Fred Morales MD [Primary Care Provider] - In 1 week Problem List Clinical Impression: Diabetic foot infection, Hyperglycemia due to diabetes mellitus Patient/Caregiver Discharge Instructions Education Materials: Diabetes Treat Severe Foot Infecs Additional Instructions: Follow-up with your appointment as stated, get into wound management if there is a worsening of symptoms including high fever return the emergency room for reevaluation. Print Language: Lebanese Stand Alone Forms: Catherine Award Info., Patient Portal Info Letter, Work/School Release PA/ECONOMICS ANALYST Supervising Physician PA/ECONOMICS ANALYST Supervising Physician: Jaden Soler ENP
--- NOTE | 2024-05-12 17:10 | PC.NURSE ---
Pt. here from home to bed 9, pt. has medical boots to each foot, dressing to right foot changed by Jaden, blister to bottom of right foot is open and healing well per Jaden. Pt. states wound to left foot is healed. Jaden is bedside.
[2024-05-12] MEDS: INSULIN HUM REGULAR 1 UNIT/0.01 ML (PER UNIT) 5 UNIT SC (17:27)
[2024-05-12 17:40] VITALS: BP 181/113; PULSE 94; RESP 17; TEMP 36.8; O2SAT 100
== END 2024-05-12 17:40 | disposition home or self-care (01) ==
PROVIDERS: Nurse Practitioner Primary Care; Emergency Provider Emergency Medicine; PCP Family Medicine
DX: E11.69 Type 2 diabetes mellitus with other specified complication (principal); M86.8X7 Other osteomyelitis, ankle and foot; E11.51 Type 2 diabetes mellitus with diabetic peripheral angiopathy without gangrene; E11.65 Type 2 diabetes mellitus with hyperglycemia; E11.40 Type 2 diabetes mellitus with diabetic neuropathy, unspecified; Z89.411 Acquired absence of right great toe; Z89.421 Acquired absence of other right toe(s); Z79.4 Long term (current) use of insulin
CPT/HCPCS: 36415; 73630; 80053; 80307; 81001; 83605; 84145; 85025; 85652; 86140; 87040; 96372; 99283; J1815

== ENCOUNTER 2024-05-13 09:11 | Outpatient (AMB) | payer MEDICAID, SELFPAY ==
[2024-05-13 09:18] VITALS: BP 171/96; PULSE 111; RESP 20; TEMP 35.8; O2SAT 98; BMI 31.1
--- NOTE | 2024-05-13 09:18 | ACNOTE_ITS ---
Vital Signs 05/13/24 09:18 Height 1.93 m Height Method Stated Weight 115.893 kg Weight Measurement Method Standing Scale BMI 31.1 BP 171/96 H Blood Pressure Source Automatic Cuff Blood Pressure Location Left Upper Arm Position Sitting Respiration 20 Pulse 111 H Pulse Source Monitor Temp 96.5 F L Temp Source Oral Pulse Oximetry (%) 98 Oxygen Delivery Method Room Air Allergies/Meds Allergies & Medications Allergies vancomycin Allergy (Severe, Verified 06/03/24 13:05) Swelling of Lip/Tongue/Throat Medication Reconciliation gabapentin 300 mg capsule 300 mg PO TID 09/27/17 [History Confirmed 06/03/24] magnesium 200 mg tablet 200 mg PO QDAY #10 tabs 01/06/24 [Rx Confirmed 06/03/24] acetaminophen 325 mg tablet 650 mg (2 x 325 mg) PO Q6H PRN Pain Scale 1-3 (Mild #14 tabs 03/12/24 [Rx Confirmed 06/03/24] aspirin 81 mg tablet,delayed release 81 mg PO QDAY #30 tabs 03/12/24 [Rx Confirmed 06/03/24] multivitamin with folic acid 400 mcg tablet (Tab-A-John) 1 tab PO QDAY #30 tabs 03/12/24 [Rx Confirmed 06/03/24] lactulose 20 gram/30 mL oral solution 30 ml PO EVERYOTHERDAY PRN constipation 5 days #0 mL 03/26/24 [Rx Confirmed 06/03/24] docusate sodium 100 mg capsule (Colace) 100 mg PO BID constipation #60 caps 04/01/24 [Rx Confirmed 06/03/24] polyethylene glycol 3350 17 gram/dose oral powder (Miralax) 4 g PO QDAY constipation #238 grams 04/01/24 [Rx Confirmed 06/03/24] blood sugar diagnostic (Accu-Chek Guide test strips) #100 ea 04/15/24 [Rx Confirmed 06/03/24] blood-glucose meter (Accu-Chek Guide Glucose Meter) #1 ea 04/15/24 [Rx Confirmed 06/03/24] gabapentin 300 mg capsule 300 mg PO TID #90 caps 04/15/24 [Rx Confirmed 06/03/24] lactulose 20 gram oral packet 20 g PO BID #30 ea 04/15/24 [Rx Confirmed 06/03/24] lancets (Accu-Chek Softclix Lancets) #100 ea 04/15/24 [Rx Confirmed 06/03/24] carvedilol 25 mg tablet (Coreg) 25 mg PO BID #60 tabs 05/13/24 [Rx] insulin aspart U-100 100 unit/mL (3 mL) subcutaneous pen 5 unit (0.05 mL) subcut TID #15 mL 05/13/24 [Rx] insulin glargine 100 unit/mL (3 mL) subcutaneous pen 45 unit (0.45 mL) subcut QAM #15 mL 05/13/24 [Rx] lisinopril 40 mg tablet 40 mg PO QDAY #30 tabs 05/13/24 [Rx] metformin 500 mg tablet 500 mg PO BIDWMEAL #60 tabs 05/13/24 [Rx] naproxen 250 mg tablet 250 mg PO BID PRN pain #60 tabs 05/13/24 [Rx] MA Intake Visit Data Collection New Patient or Established: Established Patient (seen at [facility] within 3 years) Seen by Clinical Staff ONLY (RN/MA): No Pain Present Currently: Yes Pain Location: Foot (RIGHT) Pain scale:: 8 Pain Scale Used: [place]/Numerical PCP or OBGYN visit in last 3 months: Yes Do You Feel Safe at Home: Yes Authorities Contacted: N/A Smoking Status Smoking Status: Former smoker Immunization / Flu Flu Vaccine in the Last 12 Months: No Flu Vaccine Exclusion Criteria: No Exclusion Criteria Past Medical History Past Medical History NEUROLOGIC: Positive Neurological Disorders (diabetic neuropathy) and Head Trauma (fall 3 mons ago- bruising, knots on back of head, seeing double- okay now.) CARDIAC: Positive Peripheral Vascular Disease, Hypercholesterolemia and Hypertension; Negative Cardiac Disorders or Congestive Heart Failure RESPIRATORY: Negative Chronic Obstructive Pulmonary Disease (COPD) or Asthma GASTROINTESTINAL: Negative Gastrointestinal Bleed, Ulcer or Hemorrhoids GENITOURINARY: Negative Renal Disease MUSCULOSKELETAL: Positive Osteomyelitis (bilateral feet); Negative Arthritis ENT: Positive Head Trauma (fall 3 mons ago- bruising, knots on back of head, seeing double- okay now.) ENDOCRINE: Positive Endocrine Disorders and Diabetes Mellitus Type 2; Negative Diabetes Mellitus Type 1 HEMATOLOGIC: Negative Blood Disorders or Sickle Cell Disease PSYCHO/SOCIAL: Positive Anxiety OTHER HISTORY: Positive Falls (hit back of head, went to icu.) and MRSA (foot right); Negative Blood Transfusions or Anesthesia Reactions Family History FAMILY HISTORY: Positive Family Cancer (mom- motuth cancer. dad- lung cancer.); Negative Family Psychiatric Problems, Family Respiratory Disorders, Family Cardiac Disorders, Family Gastrointestinal Problems or Family Anesthesia Reaction Surgical History SURGICAL: Positive Amputation; Negative Cardiac Surgery Social History SMOKING STATUS: Smoking status: Former smoker SECOND HAND EXPOSURE: second hand exposure: No (5 cig/day x10 yrs- QUIT 15 yrs ago) ALCOHOL: Alcohol Intake: Never HOUSING: Housing: House LIVES WITH: Lives With: Family Patient [address] Social History Living Situation History Housing: House Housing Other:: Pt lives with sister Tobacco History Smoking Status: Former smoker Second Hand Smoke Exposure: No (5 cig/day x10 yrs- QUIT 15 yrs ago) Alcohol History Alcohol Intake: Never Domestic Abuse History Do You Feel Safe at Home: Yes Review of Systems Report any current symptoms Only answer those that you have currently: Past Medical History Past Medical History Have you ever been diagnosed with any of the following: Neurological Problems Head Trauma: Yes (fall 3 mons ago- bruising, knots on back of head, seeing double- okay now.) Cardiology Problems Peripheral Vascular Disease: Yes Hypercholesterolemia: Yes Congestive Heart Failure: No Hypertension: Yes Respiratory Problems Chronic Obstructive Pulmonary Disease (COPD): No Asthma: No Stomache/Intestinal Problems Gastrointestinal Bleed: No Ulcer: No Hemorrhoids: No Genital/Urinary Problems Renal Disease: No Musculoskeletal Problems Arthritis: No Osteomyelitis: Yes (bilateral feet) Endocrine Problems Diabetes Mellitus Type 1: No Diabetes Mellitus Type 2: Yes Blood Problems Sickle Cell Disease: No Psychologic Problems Anxiety: Yes Other Problems Falls: Yes (hit back of head, went to icu.) Blood Transfusions: No Anesthesia Reactions: No MRSA: Yes (foot right) History of Present Illness HPI Narrative 04/01/2024 54-year-old male past medical history of chronic osteomyelitis of both R and L lower extremity (h/x of previous amputations) type 2 diabetes on insulin, hypertension, diabetic neuropathy, coronary artery disease who comes to the clinic today for a follow up from the hospital in which he was admitted for osteomyelitis of the R foot, s/p debridement of both feet, and was discharged on IV rocephin and PO doxycycline to be continued until 05/06. Pt is complaining of abd pain and foot pain. Says he has not been sleeping well either, and attributes it to his abdominal pain. Says he sleeps at 9/10 pm everynight, but wakes up around 2am bc of abdominal pain, and then will wake back up at 5am. Denies having more than one caffeinated beverage throughout the day which is a coffee in the morning, and does not take naps throughout the day. He also says that he has not had a bowel movement since he was discharged from the hospital on 03/29. Endorses some loss of appetite too but says its due to his constipation. Also states that he has not taken his doxycycline as he was not able to pick it up from the pharmacy. 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 Also endorses some exertional dyspnea but denies swelling in his legs. Has not gotten a colonscopy before, no other complaints at this time. 04/15/2024: 54-year-old male who comes into the office today for follow-up of osteomyelitis, blood pressure, insomnia, and constipation. Patient reports that he has not had a bowel movement since Friday. Says he has been taking his laxatives as prescribed. Says that him not having bowel movements in addition to his leg pain and has not allowed him to sleep. Has been taking all his medicines including his blood pressure medicines as prescribed. Has been getting home health for his antibiotics for osteomyelitis. Has been trying to adjust his diet. Says that his sugars 220s at home. Says that he needs a new glucometer as he has lost his. No other complaints at this time. 05/13/2024: 54 y/o male who comes into the office today for follow-up of osteomyelitis, hypertension and was recently discharged from the ER on 05/12/2024 for evaluation of osteomyelitis. Patient reports that he went to the ER yesterday because he noticed a couple new ulcers on his right lower extremity, the same leg that he had operated on. He denies having any fever or chills, but did say that when he was in the ER his blood sugar was 480. He was worked up, x-ray showed chronic osteomyelitis and was told to follow-up with wound care upon discharge. When he came to the office, blood sugar was checked and he had blood sugar of 360, said he ate last night but has not eaten anything this morning however he had a diet Coke this morning. He is also inquiring about where he is at for his GI referral, is requesting some naproxen as he has said that helps him with his pain. Says he has bowel movements every 3 days or so, last bowel movement was on Friday. No other complaints at this time Review of Systems Review of Systems Narrative Review of Systems: Constitutional: No fever, chills, fatigue, weakness, weight loss HEENT: No eye pain, vision loss, ear pain, hearing loss, dysphagia, Cardiovascular: No chest pain, palpitations, edema, pain with walking Respiratory: No cough, shortness of breath, wheezing GI: No NVD, abdominal pain, constipation, blood in stool, loss of appetite, heartburn Extremities: No presence of pitting edema, +pain in lower extremities MSK: No back pain, joint pain, joint swelling Neuro: No dizziness, numbness, weakness, headaches, seizures, tremors Psych: No anxiety, depression Objective/Exam Narrative Physical exam: General: AAOx3, NAD, HEENT: Moist mucous membranes, conjunctiva clear, EOMI, PERRLA, Cardiovascular: S1, S2, radial pulses +2 bilat, RRR Pulmonary: CTAB bilat no cough, no wheezing GI: No tenderness to light or deep palpitation, no guarding, rigidity, rebound tenderness or distension Extremities: RLE bandage s/p amputation, some dry drainage on bandage Neuro: AAOx3, no focal motor or sensory deficits in the UE or LE bilat Psych: Good judgement, thought and behavior. Cooperative Assessment & Plan Diagnosis / Problem List (1) Osteomyelitis of lower extremity: Status: Acute Assessment & Plan: Patient recently completed Doxy and Rocephin antibiotic course however says that his lower extremity has developed some ulcers Recently went to the ER for evaluation, was discharged Experiencing some pain in feet Plan: ?*Wound care referral ?Naproxen 250 as needed (2) Constipation: Status: Chronic Qualifiers: Constipation type: unspecified constipation type Qualified Code(s): K59.00 - Constipation, unspecified Assessment & Plan: Pt has been experiencing constipation, also during his hospital admissions Could be a component of motility but also could be related to diet and intake Says he has not gotten a colonscopy before, denies having blood in stool, could be a hemorrhoidal component to it Will further workup Plan: Continue with current medicines Pending GI referral (3) Hypertension: Status: Chronic Qualifiers: Hypertension type: primary hypertension Qualified Code(s): I10 - Essential (primary) hypertension Assessment & Plan: Blood pressure not controlled, 170s 1 coming again Will need to adjust Plan: ?*Coreg 25 twice daily (4) Congestive heart failure with left ventricular diastolic dysfunction: Status: Acute Qualifiers: Congestive heart failure chronicity: chronic Qualified Code(s): I50.32 - Chronic diastolic (congestive) heart failure Assessment & Plan: Echo shows grade 1 diastolic dysfunction, preserved ejection fraction around 60% Does complain of injection dyspnea Does not complain of pitting edema Will continue GDMT therapy Plan: ? Continue with lisinopril 40 mg ?*Coreg 25 ?As above (5) Coronary artery disease: Status: Acute Qualifiers: Associated angina: with stable angina Coronary Disease-Associated Artery/Lesion type: [place] artery [place] vs. transplanted heart: [place] heart Qualified Code(s): I25.118 - Atherosclerotic heart disease of [place] coronary artery with other forms of angina pectoris Assessment & Plan: Stable angina On aspirin Plan: ? Continue aspirin ?As above (6) Diabetes mellitus: Status: Acute Qualifiers: Diabetes mellitus complication detail: with other arthropathy Diabetes mellitus complication status: with diabetic arthropathy Diabetes mellitus buttermaker helper insulin use: with mcfp use Diabetes mellitus type: type 2 Qualified Code(s): E11.618 - Type 2 diabetes mellitus with other diabetic arthropathy; Z79.4 - half-way (current) use of insulin Assessment & Plan: Recent A1c of 9.3, will need an additional one upon next appointment Blood sugar upon recent visit in ER was 480, not controlled Blood sugar and office 340 upon fingerstick Will need to adjust Patient says that he takes short acting twice a day, not on metformin or Jardiance Will adjust insulin Says takes long-acting 40 Plan: ? Continue with current management ?Gabapentin 300 3 times daily ?Lantus 45 units ? NovoLog 5 units 3 times daily with meals ? Metformin 500 twice daily (7) Encounter for screening colonoscopy for [id number] patient: Status: Acute Assessment & Plan: Never had a colonoscopy for Experiencing chronic constipation Plan: Referral to [facility] in [place] (8) Insomnia: Status: Acute Assessment & Plan: Likely related to pain and constipation Plan: Continue with gabapentin 300 3 times daily Additional Assessment Attending note: Theo Berry MD, attest that I was physically present for the cotto portions of the service and evaluated the patient with the resident and I reviewed and discussed the case with the resident and agree with the resident's findings and plans of care as documented above. Follow-up visit. Being day prior in the emergency room for evaluation of 2 new ulcers on right lower extremity. Glucose in ER 480. X-ray showed chronic osteomyelitis. Patient is to follow-up with wound care. GI referral remains pending. Referral to wound care today. Diet for constipation, monitor with water and fiber intake, may also use OTC stool softener or laxative. Blood pressure remains elevated, Coreg uptitrated 25 mg twice daily, remains on lisinopril 40 mg daily as well. Diabetes self-care reviewed including diet, exercise, footcare, eye care. Will be due for hemoglobin A1c at next appointment. We will uptitrate basal insulin to Lantus 45 units daily, and increase short acting insulin to NovoLog 5 units 3 times daily with meals. Start metformin 500 mg twice daily. This will hopefully bring sugars down. Theo Bahena MD Physician Billing Established Patient Established Patient: E/M Level 3-CPT 56595 Office Procedures [facility] Level of Care Nursing/Assessment Patient Status: Established Patient Nursing Assessment/Reassessment: Medication Reconciliation, Update PMH in EMR and Vital Signs Coordination of Care: Complex Care and Chronic Disease 1-5, Education Complex Pt/Fam and Staff clarify orders Established Patient Charge Established Patient Point Assignment: 85 Established Patient Point Charge: EP Level 3 (80-115)
== END 2024-05-13 10:05 | disposition home or self-care (01) ==
LOC: HODAHC 09:11
PROVIDERS: Supervising Provider Internal Medicine
DX: M86.9 Osteomyelitis, unspecified (principal); K59.00 Constipation, unspecified; I11.0 Hypertensive heart disease with heart failure; I50.30 Unspecified diastolic (congestive) heart failure; I25.10 Atherosclerotic heart disease of native coronary artery without angina pectoris; E11.618 Type 2 diabetes mellitus with other diabetic arthropathy; Z79.4 Long term (current) use of insulin
CPT/HCPCS: 99213; G0463

== ENCOUNTER → 2024-05-24 | Outpatient (CLI) | payer MEDICAID, SELFPAY | END | disposition home or self-care (01) | PROVIDERS: Visit Provider Student in an Organized Health Care Education/Training Program | DX: L97.412 Non-pressure chronic ulcer of right heel and midfoot with fat layer exposed (principal); L97.521 Non-pressure chronic ulcer of other part of left foot limited to breakdown of skin; I10 Essential (primary) hypertension; E11.40 Type 2 diabetes mellitus with diabetic neuropathy, unspecified; Z79.84 Long term (current) use of oral hypoglycemic drugs; Z79.4 Long term (current) use of insulin | CPT/HCPCS: 97597; 11042; 99213; A9270; G0463 ==

== ENCOUNTER → 2024-05-25 | Outpatient (CLI) | payer MEDICAID, SELFPAY | END | disposition home or self-care (01) | LOC: SLDO 12:12 | PROVIDERS: Referring Provider Surgery; Visit Provider Surgery | DX: E11.621 Type 2 diabetes mellitus with foot ulcer (principal); E11.40 Type 2 diabetes mellitus with diabetic neuropathy, unspecified; L97.519 Non-pressure chronic ulcer of other part of right foot with unspecified severity | CPT/HCPCS: 87070; 87075; 87077; 87186; 87205 ==

== ENCOUNTER → 2024-05-31 | Outpatient (CLI) | payer MEDICAID, SELFPAY | END | disposition home or self-care (01) | LOC: SWHD 12:45 | PROVIDERS: PCP Family Medicine; Referring Provider Family Medicine; Visit Provider Student in an Organized Health Care Education/Training Program | DX: E11.621 Type 2 diabetes mellitus with foot ulcer (principal); L97.412 Non-pressure chronic ulcer of right heel and midfoot with fat layer exposed; L97.521 Non-pressure chronic ulcer of other part of left foot limited to breakdown of skin; I10 Essential (primary) hypertension; E11.40 Type 2 diabetes mellitus with diabetic neuropathy, unspecified; Z79.84 Long term (current) use of oral hypoglycemic drugs; Z79.4 Long term (current) use of insulin | CPT/HCPCS: 11042; A9270 ==

== ENCOUNTER 2024-06-03 12:57 | Outpatient (AMB) | payer MEDICAID, SELFPAY ==
[2024-06-03 13:03] VITALS: BP 164/84; PULSE 84; RESP 18; TEMP 36.3; O2SAT 96; BMI 43.9
--- NOTE | 2024-06-03 13:03 | ACNOTE_ITS ---
Vital Signs 06/03/24 13:03 Height 1.63 m Height Method Stated Weight 116.12 kg Weight Measurement Method Standing Scale BMI 43.9 BP 164/84 H Blood Pressure Source Automatic Cuff Blood Pressure Location Left Upper Arm Position Sitting Respiration 18 Pulse 84 Pulse Source Monitor Temp 97.3 F Temp Source Oral Pulse Oximetry (%) 96 Oxygen Delivery Method Room Air Allergies/Meds Allergies & Medications Allergies vancomycin Allergy (Severe, Verified 06/03/24 13:05) Swelling of Lip/Tongue/Throat Medication Reconciliation gabapentin 300 mg capsule 300 mg PO TID 09/27/17 [History Confirmed 06/03/24] magnesium 200 mg tablet 200 mg PO QDAY #10 tabs 01/06/24 [Rx Confirmed 06/03/24] acetaminophen 325 mg tablet 650 mg (2 x 325 mg) PO Q6H PRN Pain Scale 1-3 (Mild #14 tabs 03/12/24 [Rx Confirmed 06/03/24] aspirin 81 mg tablet,delayed release 81 mg PO QDAY #30 tabs 03/12/24 [Rx Confirmed 06/03/24] multivitamin with folic acid 400 mcg tablet (Tab-A-John) 1 tab PO QDAY #30 tabs 03/12/24 [Rx Confirmed 06/03/24] lactulose 20 gram/30 mL oral solution 30 ml PO EVERYOTHERDAY PRN constipation 5 days #0 mL 03/26/24 [Rx Confirmed 06/03/24] docusate sodium 100 mg capsule (Colace) 100 mg PO BID constipation #60 caps 04/01/24 [Rx Confirmed 06/03/24] polyethylene glycol 3350 17 gram/dose oral powder (Miralax) 4 g PO QDAY constipation #238 grams 04/01/24 [Rx Confirmed 06/03/24] blood sugar diagnostic (Accu-Chek Guide test strips) #100 ea 04/15/24 [Rx Confirmed 06/03/24] blood-glucose meter (Accu-Chek Guide Glucose Meter) #1 ea 04/15/24 [Rx Confirmed 06/03/24] gabapentin 300 mg capsule 300 mg PO TID #90 caps 04/15/24 [Rx Confirmed 06/03/24] insulin aspart U-100 100 unit/mL (3 mL) subcutaneous pen 5 unit (0.05 mL) subcut TID #15 mL 05/13/24 [Rx Confirmed 06/03/24] insulin glargine 100 unit/mL (3 mL) subcutaneous pen 45 unit (0.45 mL) subcut QAM #15 mL 05/13/24 [Rx Confirmed 06/03/24] lisinopril 40 mg tablet 40 mg PO QDAY #30 tabs 05/13/24 [Rx Confirmed 06/03/24] metformin 500 mg tablet 500 mg PO BIDWMEAL #60 tabs 05/13/24 [Rx Confirmed 06/03/24] naproxen 250 mg tablet 250 mg PO BID PRN pain #60 tabs 05/13/24 [Rx Confirmed 06/03/24] carvedilol 25 mg tablet (Coreg) 25 mg PO BID #60 tabs 06/03/24 [Rx] dapagliflozin propanediol 10 mg tablet (Farxiga) 10 mg PO QDAY Diabetes, HFpEF #30 tabs 06/03/24 [Rx] lactulose 20 gram oral packet 20 g PO BID #60 ea 06/03/24 [Rx] lancets (Accu-Chek Softclix Lancets) #100 ea 06/03/24 [Rx] spironolactone 25 mg tablet 25 mg PO QDAY HTN #30 tabs 06/03/24 [Rx] MA Intake Visit Data Collection New Patient or Established: Established Patient (seen at [facility] [place] within 3 years) Seen by Clinical Staff ONLY (RN/MA): No Pain Present Currently: No Pain Scale Used: [place]/Numerical Assisted Living Assistant Required: No PCP or OBGYN visit in last 3 months: Yes Do You Feel Safe at Home: Yes Authorities Contacted: N/A Smoking Status Smoking Status: Former smoker Immunization / Flu Flu Vaccine in the Last 12 Months: No Flu Vaccine Exclusion Criteria: Refused by Patient Past Medical History Past Medical History NEUROLOGIC: Positive Neurological Disorders (diabetic neuropathy) and Head Trauma (fall 3 mons ago- bruising, knots on back of head, seeing double- okay now.) CARDIAC: Positive Peripheral Vascular Disease, Hypercholesterolemia and Hypertension; Negative Cardiac Disorders or Congestive Heart Failure RESPIRATORY: Negative Chronic Obstructive Pulmonary Disease (COPD) or Asthma GASTROINTESTINAL: Negative Gastrointestinal Bleed, Ulcer or Hemorrhoids GENITOURINARY: Negative Renal Disease MUSCULOSKELETAL: Positive Osteomyelitis (bilateral feet); Negative Arthritis ENT: Positive Head Trauma (fall 3 mons ago- bruising, knots on back of head, seeing double- okay now.) ENDOCRINE: Positive Endocrine Disorders and Diabetes Mellitus Type 2; Negative Diabetes Mellitus Type 1 HEMATOLOGIC: Negative Blood Disorders or Sickle Cell Disease PSYCHO/SOCIAL: Positive Anxiety OTHER HISTORY: Positive Falls (hit back of head, went to icu.) and MRSA (foot right); Negative Blood Transfusions or Anesthesia Reactions Family History FAMILY HISTORY: Positive Family Cancer (mom- motuth cancer. dad- lung cancer.); Negative Family Psychiatric Problems, Family Respiratory Disorders, Family Cardiac Disorders, Family Gastrointestinal Problems or Family Anesthesia Reaction Surgical History SURGICAL: Positive Amputation; Negative Cardiac Surgery Social History SMOKING STATUS: Smoking status: Former smoker SECOND HAND EXPOSURE: second hand exposure: No (5 cig/day x10 yrs- QUIT 15 yrs ago) ALCOHOL: Alcohol Intake: Never HOUSING: Housing: House LIVES WITH: Lives With: Family Patient [address] Social History Living Situation History Housing: House Housing Other:: Pt lives with sister Tobacco History Smoking Status: Former smoker Second Hand Smoke Exposure: No (5 cig/day x10 yrs- QUIT 15 yrs ago) Alcohol History Alcohol Intake: Never Domestic Abuse History Do You Feel Safe at Home: Yes Review of Systems Report any current symptoms Only answer those that you have currently: Past Medical History Past Medical History Have you ever been diagnosed with any of the following: Neurological Problems Head Trauma: Yes (fall 3 mons ago- bruising, knots on back of head, seeing double- okay now.) Cardiology Problems Peripheral Vascular Disease: Yes Hypercholesterolemia: Yes Congestive Heart Failure: No Hypertension: Yes Respiratory Problems Chronic Obstructive Pulmonary Disease (COPD): No Asthma: No Stomache/Intestinal Problems Gastrointestinal Bleed: No Ulcer: No Hemorrhoids: No Genital/Urinary Problems Renal Disease: No Musculoskeletal Problems Arthritis: No Osteomyelitis: Yes (bilateral feet) Endocrine Problems Diabetes Mellitus Type 1: No Diabetes Mellitus Type 2: Yes Blood Problems Sickle Cell Disease: No Psychologic Problems Anxiety: Yes Other Problems Falls: Yes (hit back of head, went to icu.) Blood Transfusions: No Anesthesia Reactions: No MRSA: Yes (foot right) History of Present Illness HPI Narrative 54-year-old male with past medical history of osteomyelitis of right and left foot s/p amputation, IDDM, hypertension, diabetic nephropathy, and CAD came [facility] for follow-up. On past visits patient was still complaining of constipation and his blood pressure was still elevated. Today his blood sugar was in the 270s he states that he has been around there at home as well. His blood pressure was also elevated today at 164/84. Patient states she has been doing quite well and that his wound has been improving as he has been going to wound care weekly. Patient states that he has had bowel movements, but he describes them as being hard and small like pellets. Has not seen a GI specialist yet as he has not gotten called by their offices, will follow up on referral. Given patient's uncontrolled hypertension and diabetes we will add farxiga and spironolactone to his regimen to improve blood sugars and blood pressure. Patient has no other complaints at this time.Will have patient follow-up in 1 month with repeat A1c, CMP, and microalbumin. Review of Systems Review of Systems Narrative Review of Systems: Constitutional: Denies sweats, Denies weight loss/gain, Denies fever, Denies chills. HEENT: Denies hearing loss, Denies ear pain, Denies postnasal drip, Denies double vision, Denies blurry vision. Respiratory: Denies shortness of breath, Denies cough, Denies wheezing. Cardiovascular: Denies chest pain, Denies palpitations, Denies sudden loss of consciousness. GI: Denies blood in stool, Admits constipation, Denies abdominal pain, Denies difficulty swallowing, Denies nausea or vomit. : Denies urinary incontinence, Denies pain while urinating, Denies increased urinary frequency. MSK: Denies joint pain, Denies joint swelling, Denies numbness. Skin: Denies rash, Denies itching, Denies easy bruising. Neuro: Denies headaches, Denies dizziness, Denies seizures. Objective/Exam General General Appearance: alert, comfortable, cooperative and well developed Head Head exam: atraumatic, normocephalic and normal inspection Eye Eye exam: Present normal appearance, PERRL and EOMI ENT ENT exam: Present normal exam, normal oropharynx and mucous membranes moist Neck Neck exam: Present normal inspection and full ROM Resp Respiratory exam: Present normal lung sounds bilaterally Card Cardiovascular exam: Present regular rate, normal rhythm and normal heart sounds Abdominal Abdominal exam: Present soft and normal bowel sounds Extremities Extremities exam: Present normal inspection, full ROM, normal capillary refill and other (Clean dressing over R foot) Neuro Neurological exam: Present alert, oriented X3 and CN II-XII intact Psych Psychiatric exam: Present normal affect and normal mood Skin Skin exam: Present intact and normal color Assessment & Plan Diagnosis / Problem List (1) Diabetes mellitus: Status: Acute Qualifiers: Diabetes mellitus complication detail: with other arthropathy Diabetes mellitus complication status: with diabetic arthropathy 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 Continue with current management ?Gabapentin 300 3 times daily ?Lantus 45 units ? NovoLog 5 units 3 times daily with meals ? Metformin 500 twice daily -Added Farxiga 10mg qday, recommended to check morning BG and if BG is below 100 to decrease long acting insulin by 1 unit at a time to avoid hypoglycemia -Repeat A1c and microalbumin ordered (2) Hypertension: Status: Chronic Qualifiers: Hypertension type: primary hypertension Qualified Code(s): I10 - Essential (primary) hypertension Assessment & Plan: Uncontrolled 164/84 today Plan: ?Coreg 25 twice daily -Lisinopril 40mg qday -Added spironolactone 25mg qday -Will repeat CMP to monitor potassium (3) Osteomyelitis of lower extremity: Status: Acute Assessment & Plan: Improving -Clean dressing today Plan: -Continue with wound care (4) Constipation: Status: Chronic Qualifiers: Constipation type: unspecified constipation type Qualified Code(s): K59.00 - Constipation, unspecified Assessment & Plan: Pt has been experiencing constipation, also during his hospital admissions Could be a component of motility but also could be related to diet and intake Says he has not gotten a colonscopy before, denies having blood in stool, could be a hemorrhoidal component to it Will further workup Plan: -lactulose 20gm -Pending GI specialist appt and colonoscopy (5) Congestive heart failure with left ventricular diastolic dysfunction: Status: Acute Qualifiers: Congestive heart failure chronicity: chronic Qualified Code(s): I50.32 - Chronic diastolic (congestive) heart failure Assessment & Plan: Echo shows grade 1 diastolic dysfunction, preserved ejection fraction around 60% Does complain of injection dyspnea Does not complain of pitting edema Will continue GDMT therapy Plan: -Coreg 25 BID -Spironolactone 25mg qday -Farxiga 10mg qday -Will consider Entresto at a future date Additional Assessment Attending note: I, Theo Bahena MD, attest that I was physically present for the cotto portions of the service and evaluated the patient with the resident and I reviewed and discussed the case with the resident and agree with the resident's findings and plans of care as documented above. Follow-up visit. Blood pressure remains elevated 164/84. Patient is on a maximum dose of carvedilol and lisinopril. We will add spironolactone 25 mg daily. Recheck BMP to monitor renal function and potassium. Continue with wound care for osteomyelitis. Continue lactulose for constipation. Patient a candidate for screening colonoscopy. Patient echocardiogram reviewed again showing grade 1 diastolic dysfunction with preserved ejection fraction. We will add Farxiga 10 mg daily as this should hopefully help both heart and sugars. Spironolactone also added for blood pressure as noted previously. Diabetes self-care reviewed including diet, exercise, footcare, eye care. Theo Bahena MD Physician Billing Established Patient Established Patient: E/M Level 3-CPT 04318 Office Procedures [facility] Level of Care Nursing/Assessment Patient Status: Established Patient Nursing Assessment/Reassessment: Medication Reconciliation, Update PMH in EMR and Vital Signs Coordination of Care: Complex Care and Chronic Disease 1-5, Consent,records obtained, informed consent, Education Simp Pt/Fam and Staff clarify orders Established Patient Charge Established Patient Point Assignment: 85 Established Patient Point Charge: EP Level 3 (80-115)
== END 2024-06-03 13:53 | disposition home or self-care (01) ==
PROVIDERS: Supervising Provider Internal Medicine; Visit Provider Student in an Organized Health Care Education/Training Program
DX: K59.00 Constipation, unspecified (principal); E11.65 Type 2 diabetes mellitus with hyperglycemia; E11.44 Type 2 diabetes mellitus with diabetic amyotrophy; Z79.4 Long term (current) use of insulin; M86.8X6 Other osteomyelitis, lower leg; I11.0 Hypertensive heart disease with heart failure; I50.32 Chronic diastolic (congestive) heart failure
CPT/HCPCS: 99213; G0463

== ENCOUNTER → 2024-06-11 | Outpatient (CLI) | payer MEDICAID, SELFPAY | END | disposition home or self-care (01) | LOC: SWHD 10:15 | PROVIDERS: PCP Family Medicine; Referring Provider Family Medicine; Visit Provider Student in an Organized Health Care Education/Training Program | DX: E11.621 Type 2 diabetes mellitus with foot ulcer (principal); L97.416 Non-pressure chronic ulcer of right heel and midfoot with bone involvement without evidence of necrosis; L97.522 Non-pressure chronic ulcer of other part of left foot with fat layer exposed; I10 Essential (primary) hypertension; E11.40 Type 2 diabetes mellitus with diabetic neuropathy, unspecified; Z79.4 Long term (current) use of insulin; Z79.84 Long term (current) use of oral hypoglycemic drugs | CPT/HCPCS: 11042; 97597; A9270 ==

== ENCOUNTER 2024-06-17 10:10 | Outpatient (AMB) | payer MEDICAID, SELFPAY ==
[2024-06-17 10:20] VITALS: BP 131/83; PULSE 106; RESP 18; TEMP 36.8; O2SAT 96; BMI 30.8
--- NOTE | 2024-06-17 10:20 | ACNOTE_ITS ---
Vital Signs 06/17/24 10:20 Height 1.93 m Height Method Stated Weight 114.929 kg Weight Measurement Method Standing Scale BMI 30.8 BP 131/83 H Blood Pressure Source Automatic Cuff Blood Pressure Location Left Upper Arm Position Sitting Respiration 18 Pulse 106 H Pulse Source Monitor Temp 98.3 F Temp Source Oral Pulse Oximetry (%) 96 Oxygen Delivery Method Room Air Allergies/Meds Allergies & Medications Allergies vancomycin Allergy (Severe, Verified 06/17/24 10:21) Swelling of Lip/Tongue/Throat Medication Reconciliation gabapentin 300 mg capsule 300 mg PO TID 09/27/17 [History Confirmed 06/17/24] magnesium 200 mg tablet 200 mg PO QDAY #10 tabs 01/06/24 [Rx Confirmed 06/17/24] acetaminophen 325 mg tablet 650 mg (2 x 325 mg) PO Q6H PRN Pain Scale 1-3 (Mild #14 tabs 03/12/24 [Rx Confirmed 06/17/24] aspirin 81 mg tablet,delayed release 81 mg PO QDAY #30 tabs 03/12/24 [Rx Confirmed 06/17/24] multivitamin with folic acid 400 mcg tablet (Tab-A-John) 1 tab PO QDAY #30 tabs 03/12/24 [Rx Confirmed 06/17/24] docusate sodium 100 mg capsule (Colace) 100 mg PO BID constipation #60 caps 04/01/24 [Rx Confirmed 06/17/24] blood sugar diagnostic (Accu-Chek Guide test strips) #100 ea 04/15/24 [Rx Confirmed 06/17/24] blood-glucose meter (Accu-Chek Guide Glucose Meter) #1 ea 04/15/24 [Rx Confirmed 06/17/24] insulin aspart U-100 100 unit/mL (3 mL) subcutaneous pen 5 unit (0.05 mL) subcut TID #15 mL 05/13/24 [Rx Confirmed 06/17/24] insulin glargine 100 unit/mL (3 mL) subcutaneous pen 45 unit (0.45 mL) subcut QAM #15 mL 05/13/24 [Rx Confirmed 06/17/24] lisinopril 40 mg tablet 40 mg PO QDAY #30 tabs 05/13/24 [Rx Confirmed 06/17/24] metformin 500 mg tablet 500 mg PO BIDWMEAL #60 tabs 05/13/24 [Rx Confirmed 06/17/24] carvedilol 25 mg tablet (Coreg) 25 mg PO BID #60 tabs 06/03/24 [Rx Confirmed 06/17/24] dapagliflozin propanediol 10 mg tablet (Farxiga) 10 mg PO QDAY Diabetes, HFpEF #30 tabs 06/03/24 [Rx Confirmed 06/17/24] lactulose 20 gram oral packet 20 g PO BID #60 ea 06/03/24 [Rx Confirmed 06/17/24] lancets (Accu-Chek Softclix Lancets) #100 ea 06/03/24 [Rx Confirmed 06/17/24] spironolactone 25 mg tablet 25 mg PO QDAY HTN #30 tabs 06/03/24 [Rx Confirmed 06/17/24] blood-glucose meter,continuous (FreeStyle [place]) #1 ea 06/17/24 [Rx] blood-glucose sensor (FreeStyle [place] 3 Sensor device) #2 ea 06/17/24 [Rx] gabapentin 300 mg capsule 300 mg PO TID #90 caps 06/17/24 [Rx] lactulose 20 gram/30 mL oral solution 30 ml PO EVERYOTHERDAY PRN constipation 5 days #1,200 mL 06/17/24 [Rx] naproxen 250 mg tablet 250 mg PO BID PRN pain #60 tabs 06/17/24 [Rx] polyethylene glycol 3350 17 gram/dose oral powder (Miralax) 4 g PO QDAY constipation #238 grams 06/17/24 [Rx] semaglutide 0.25 mg or 0.5 mg (2 mg/3 mL) subcutaneous pen injector (Ozempic) 0.25 mg (0.368 mL) subcut QWEEK #3 mL 06/17/24 [Rx] MA Intake Visit Data Collection New Patient or Established: Established Patient (seen at [facility] within 3 years) Seen by Clinical Staff ONLY (RN/MICAELA): No Pain Present Currently: No Pain scale:: 0 Pain Scale Used: [place] Required: No PCP or OBGYN visit in last 3 months: Yes Do You Feel Safe at Home: Yes Authorities Contacted: N/A Smoking Status Smoking Status: Former smoker Immunization / Flu Flu Vaccine in the Last 12 Months: No Flu Vaccine Exclusion Criteria: No Exclusion Criteria Past Medical History Past Medical History NEUROLOGIC: Positive Neurological Disorders (diabetic neuropathy) and Head Trauma (fall 3 mons ago- bruising, knots on back of head, seeing double- okay now.) CARDIAC: Positive Peripheral Vascular Disease, Hypercholesterolemia and Hypertension; Negative Cardiac Disorders or Congestive Heart Failure RESPIRATORY: Negative Chronic Obstructive Pulmonary Disease (COPD) or Asthma GASTROINTESTINAL: Negative Gastrointestinal Bleed, Ulcer or Hemorrhoids GENITOURINARY: Negative Renal Disease MUSCULOSKELETAL: Positive Osteomyelitis (bilateral feet); Negative Arthritis ENT: Positive Head Trauma (fall 3 mons ago- bruising, knots on back of head, seeing double- okay now.) ENDOCRINE: Positive Endocrine Disorders and Diabetes Mellitus Type 2; Negative Diabetes Mellitus Type 1 HEMATOLOGIC: Negative Blood Disorders or Sickle Cell Disease PSYCHO/SOCIAL: Positive Anxiety OTHER HISTORY: Positive Falls (hit back of head, went to icu.) and MRSA (foot right); Negative Blood Transfusions or Anesthesia Reactions Family History FAMILY HISTORY: Positive Family Cancer (mom- motuth cancer. dad- lung cancer.); Negative Family Psychiatric Problems, Family Respiratory Disorders, Family Cardiac Disorders, Family Gastrointestinal Problems or Family Anesthesia Reaction Surgical History SURGICAL: Positive Amputation; Negative Cardiac Surgery Social History SMOKING STATUS: Smoking status: Former smoker SECOND HAND EXPOSURE: second hand exposure: No (5 cig/day x10 yrs- QUIT 15 yrs ago) ALCOHOL: Alcohol Intake: Never HOUSING: Housing: House LIVES WITH: Lives With: Family Patient Portal Rayna Social History Living Situation History Housing: House Housing Other:: Pt lives with sister Tobacco History Smoking Status: Former smoker Second Hand Smoke Exposure: No (5 cig/day x10 yrs- QUIT 15 yrs ago) Alcohol History Alcohol Intake: Never Domestic Abuse History Do You Feel Safe at Home: Yes Review of Systems Report any current symptoms Only answer those that you have currently: Past Medical History Past Medical History Have you ever been diagnosed with any of the following: Neurological Problems Head Trauma: Yes (fall 3 mons ago- bruising, knots on back of head, seeing double- okay now.) Cardiology Problems Peripheral Vascular Disease: Yes Hypercholesterolemia: Yes Congestive Heart Failure: No Hypertension: Yes Respiratory Problems Chronic Obstructive Pulmonary Disease (COPD): No Asthma: No Stomache/Intestinal Problems Gastrointestinal Bleed: No Ulcer: No Hemorrhoids: No Genital/Urinary Problems Renal Disease: No Musculoskeletal Problems Arthritis: No Osteomyelitis: Yes (bilateral feet) Endocrine Problems Diabetes Mellitus Type 1: No Diabetes Mellitus Type 2: Yes Blood Problems Sickle Cell Disease: No Psychologic Problems Anxiety: Yes Other Problems Falls: Yes (hit back of head, went to icu.) Blood Transfusions: No Anesthesia Reactions: No MRSA: Yes (foot right) History of Present Illness HPI Narrative 04/01/2024 54-year-old male past medical history of chronic osteomyelitis of both R and L lower extremity (h/x of previous amputations) type 2 diabetes on insulin, hypertension, diabetic neuropathy, coronary artery disease who comes to the clinic today for a follow up from the hospital in which he was admitted for osteomyelitis of the R foot, s/p debridement of both feet, and was discharged on IV rocephin and PO doxycycline to be continued until 05/06. Pt is complaining of abd pain and foot pain. Says he has not been sleeping well either, and attributes it to his abdominal pain. Says he sleeps at 9/10 pm everynight, but wakes up around 2am bc of abdominal pain, and then will wake back up at 5am. Denies having more than one caffeinated beverage throughout the day which is a coffee in the morning, and does not take naps throughout the day. He also says that he has not had a bowel movement since he was discharged from the hospital on 03/29. Endorses some loss of appetite too but says its due to his constipation. Also states that he has not taken his doxycycline as he was not able to pick it up from the pharmacy. He has also not been able to [employer] his other medicines from the pharmacy either. Also endorses some exertional dyspnea but denies swelling in his legs. Has not gotten a colonscopy before, no other complaints at this time. 04/15/2024: 54-year-old male who comes into the office today for follow-up of osteomyelitis, blood pressure, insomnia, and constipation. Patient reports that he has not had a bowel movement since Friday. Says he has been taking his laxatives as prescribed. Says that him not having bowel movements in addition to his leg pain and has not allowed him to sleep. Has been taking all his medicines including his blood pressure medicines as prescribed. Has been getting home health for his antibiotics for osteomyelitis. Has been trying to adjust his diet. Says that his sugars 220s at home. Says that he needs a new glucometer as he has lost his. No other complaints at this time. 05/13/2024: 54 y/o male who comes into the office today for follow-up of osteomyelitis, hypertension and was recently discharged from the ER on 05/12/2024 for evaluation of osteomyelitis. Patient reports that he went to the ER yesterday because he noticed a couple new ulcers on his right lower extremity, the same leg that he had operated on. He denies having any fever or chills, but did say that when he was in the ER his blood sugar was 480. He was worked up, x-ray showed chronic osteomyelitis and was told to follow-up with wound care upon discharge. When he came to the office, blood sugar was checked and he had blood sugar of 360, said he ate last night but has not eaten anything this morning however he had a diet Coke this morning. He is also inquiring about where he is at for his GI referral, is requesting some naproxen as he has said that helps him with his pain. Says he has bowel movements every 3 days or so, last bowel movement was on Friday. No other complaints at this time 06/03/2024 54-year-old male with past medical history of osteomyelitis of right and left foot s/p amputation, IDDM, hypertension, diabetic nephropathy, and CAD came in to the [facility] today for follow-up. On past visits patient was still complaining of constipation and his blood pressure was still elevated. Today his blood sugar was in the 270s he states that he has been around there at home as well. His blood pressure was also elevated today at 164/84. Patient states she has been doing quite well and that his wound has been improving as he has been going to wound care weekly. Patient states that he has had bowel movements, but he describes them as being hard and small like pellets. Has not seen a GI specialist yet as he has not gotten called by their offices, will follow up on referral. Given patient's uncontrolled hypertension and diabetes we will add farxiga and spironolactone to his regimen to improve blood sugars and blood pressure. Patient has no other complaints at this time.Will have patient follow-up in 1 month with repeat A1c, CMP, and microalbumin. 06/17/2024: Patient examined at bedside today. Seen Dr. Cruz on last visit on June 03, 2024. Patient was post to get lab work done including A1c CMP and microalbumin, however this is appointment. Says that he has been doing good, however he says that his sugars have been uncontrolled. He noticed that they are sometimes in the 180s, however he was [facility] and had a hypoglycemic episode in which he was diaphoretic and felt weak. He was given candy and juice and it resolved. He says that his sugars are typically around 180s to 200s. He said he did not eat this morning but did not check his sugar. Fingerstick showed sugar of 317. He also says that he has been having good bowel movements, but needs refills on his lactulose and MiraLAX, last bowel movement was 2 days ago. He also says that he has been taking his medicines as prescribed including his fark [employer] and spironolactone. He was also complaining of some generalized fatigue and was inquiring about testosterone, but says that he is not sexually active. He says that he used to get testosterone shots while he was in senior care if his levels were below 400. No other complaints at this time Review of Systems Review of Systems Narrative Review of Systems: Constitutional: + fatigue, No fever, chills, weakness, weight loss HEENT: No eye pain, vision loss, ear pain, hearing loss, dysphagia, Cardiovascular: No chest pain, palpitations, edema, pain with walking Respiratory: No cough, shortness of breath, wheezing GI: No NVD, abdominal pain, constipation, blood in stool, loss of appetite, heartburn Extremities: No presence of pitting edema MSK: No back pain, joint pain, joint swelling Neuro: No dizziness, numbness, weakness, headaches, seizures, tremors Psych: No anxiety, depression Objective/Exam Narrative Physical exam: General: AAOx3, NAD, HEENT: Moist mucous membranes, conjunctiva clear, EOMI, PERRLA, Cardiovascular: S1, S2, radial pulses +2 bilat, RRR Pulmonary: CTAB bilat no cough, no wheezing GI: No tenderness to light or deep palpitation, no guarding, rigidity, rebound tenderness or distension Extremities: Pt is wearing boots, no pitting edema bilat Neuro: AAOx3, no focal motor or sensory deficits in the UE or LE bilat Psych: Good judgement, thought and behavior. Cooperative Assessment & Plan Diagnosis / Problem List (1) Diabetes mellitus: Status: Acute Qualifiers: Diabetes mellitus complication detail: with other arthropathy Diabetes mellitus complication status: with diabetic arthropathy Diabetes mellitus manager long term care insulin use: with longterm use Diabetes mellitus type: type 2 Qualified Code(s): E11.618 - Type 2 diabetes mellitus with other diabetic arthropathy; Z79.4 - assisted (current) use of insulin Assessment & Plan: Last A1c of 9.3 Patient reports that his sugars are usually 180 at home, however fingerstick show 317 Concern for noncompliance or resistance Patient will likely benefit from additional agent and CGM Plan: ?Gabapentin 300 3 times daily ?Lantus 45 units ? NovoLog 5 units 3 times daily with meals ?Metformin 500 twice daily -Added Farxiga 10mg qday, recommended to check morning BG and if BG is below 100 to decrease long acting insulin by 1 unit at a time to avoid hypoglycemia -Pt will need a1c and microalbumin ?CGM (freestyle with sensor) and Ozempic 0.25, follow-up 2 weeks (2) Hypertension: Status: Chronic Qualifiers: Hypertension type: primary hypertension Qualified Code(s): I10 - Essential (primary) hypertension Assessment & Plan: 130 systolic today, under control Will continue with current management Plan: ?Coreg 25 twice daily -Lisinopril 40mg qday -Continue spironolactone 25mg qday -Will repeat CMP to monitor potassium (3) Osteomyelitis of lower extremity: Status: Acute Assessment & Plan: Improving Plan: -Continue with wound care (4) Constipation: Status: Chronic Qualifiers: Constipation type: unspecified constipation type Qualified Code(s): K59.00 - Constipation, unspecified Assessment & Plan: Last bowel movement was 2 days ago, bowel movements are improving He has gotten authorization for GI, he will make appointment Plan: -Continue lactulose and MiraLAX -Pending GI specialist appt and colonoscopy (5) Congestive heart failure with left ventricular diastolic dysfunction: Status: Acute Qualifiers: Congestive heart failure chronicity: chronic Qualified Code(s): I50.32 - Chronic diastolic (congestive) heart failure Assessment & Plan: Echo shows grade 1 diastolic dysfunction, preserved ejection fraction around 60% Does complain of injection dyspnea Does not complain of pitting edema Will continue GDMT therapy Plan: -Coreg 25 BID -Spironolactone 25mg qday -Farxiga 10mg qday -Will consider Entresto at a future date Orders: Orders Microalbumin, Ur Rnd w Creat 06/24/24 Parker Mcghee MD Thyroid Stimulating Hormone 06/24/24 Parker Mcghee MD Comprehensive Metabolic Panel 06/24/24 Parker Mcghee MD CBC 06/24/24 Parker Mcghee MD Ambulatory Hemoglobin A1C 06/24/24 Parker Mcghee MD Office Procedures [facility] Level of Care Nursing/Assessment Patient Status: Established Patient Nursing Assessment/Reassessment: Medication Reconciliation, Update PMH in EMR and Vital Signs Coordination of Care: Complex Care and Chronic Disease 1-5, Consent,records obtained, informed consent, Education Simp Pt/Fam, Lab and Imaging orders, Results/Orders obtained and Staff clarify orders Established Patient Charge Established Patient Point Assignment: 105 Established Patient Point Charge: Level 3 (80-115)
== END 2024-06-17 11:30 | disposition home or self-care (01) ==
LOC: HODAHC 10:10
PROVIDERS: Supervising Provider Internal Medicine
DX: E11.618 Type 2 diabetes mellitus with other diabetic arthropathy (principal); Z79.4 Long term (current) use of insulin; Z79.84 Long term (current) use of oral hypoglycemic drugs; K59.00 Constipation, unspecified; I11.0 Hypertensive heart disease with heart failure; I50.32 Chronic diastolic (congestive) heart failure; R53.83 Other fatigue
CPT/HCPCS: 99213; G0463

== ENCOUNTER → 2024-06-18 | Outpatient (CLI) | payer MEDICAID, SELFPAY | END | disposition home or self-care (01) | LOC: SWHD 09:37 | PROVIDERS: PCP Family Medicine; Referring Provider Family Medicine; Visit Provider Surgery | DX: E11.621 Type 2 diabetes mellitus with foot ulcer (principal); L97.416 Non-pressure chronic ulcer of right heel and midfoot with bone involvement without evidence of necrosis; L97.522 Non-pressure chronic ulcer of other part of left foot with fat layer exposed; I10 Essential (primary) hypertension; E11.40 Type 2 diabetes mellitus with diabetic neuropathy, unspecified; Z79.4 Long term (current) use of insulin; Z79.84 Long term (current) use of oral hypoglycemic drugs | CPT/HCPCS: 11042; A9270 ==

== ENCOUNTER → 2024-06-25 | Outpatient (CLI) | payer MEDICAID, SELFPAY | END | disposition home or self-care (01) | LOC: SWHD 12:36 | PROVIDERS: PCP Family Medicine; Referring Provider Family Medicine; Visit Provider Student in an Organized Health Care Education/Training Program | DX: E11.621 Type 2 diabetes mellitus with foot ulcer (principal); L97.416 Non-pressure chronic ulcer of right heel and midfoot with bone involvement without evidence of necrosis; L97.522 Non-pressure chronic ulcer of other part of left foot with fat layer exposed; I10 Essential (primary) hypertension; E11.40 Type 2 diabetes mellitus with diabetic neuropathy, unspecified; Z79.4 Long term (current) use of insulin; Z79.84 Long term (current) use of oral hypoglycemic drugs | CPT/HCPCS: 99213; A9270; G0463 ==

== ENCOUNTER 2024-07-01 13:08 | Outpatient (AMB) | payer MEDICAID, SELFPAY ==
--- NOTE | 2024-07-01 13:41 | ACNOTE_ITS ---
Vital Signs 07/01/24 13:44 Height 1.93 m Height Method Stated Weight 113.852 kg Weight Measurement Method Standing Scale BMI 30.5 BP 142/95 H Blood Pressure Source Automatic Cuff Blood Pressure Location Left Upper Arm Position Sitting Respiration 18 Pulse 105 H Pulse Source Monitor Temp 97.8 F Temp Source Oral Pulse Oximetry (%) 99 Oxygen Delivery Method Room Air Allergies/Meds Allergies & Medications Allergies vancomycin Allergy (Severe, Verified 06/17/24 10:21) Swelling of Lip/Tongue/Throat Medication Reconciliation gabapentin 300 mg capsule 300 mg PO TID 09/27/17 [History Confirmed 07/01/24] magnesium 200 mg tablet 200 mg PO QDAY #10 tabs 01/06/24 [Rx Confirmed 07/01/24] acetaminophen 325 mg tablet 650 mg (2 x 325 mg) PO Q6H PRN Pain Scale 1-3 (Mild #14 tabs 03/12/24 [Rx Confirmed 07/01/24] aspirin 81 mg tablet,delayed release 81 mg PO QDAY #30 tabs 03/12/24 [Rx Confirmed 07/01/24] multivitamin with folic acid 400 mcg tablet (Tab-A-John) 1 tab PO QDAY #30 tabs 03/12/24 [Rx Confirmed 07/01/24] docusate sodium 100 mg capsule (Colace) 100 mg PO BID constipation #60 caps 04/01/24 [Rx Confirmed 07/01/24] blood sugar diagnostic (Accu-Chek Guide test strips) #100 ea 04/15/24 [Rx Confirmed 07/01/24] blood-glucose meter (Accu-Chek Guide Glucose Meter) #1 ea 04/15/24 [Rx Confirmed 07/01/24] insulin aspart U-100 100 unit/mL (3 mL) subcutaneous pen 5 unit (0.05 mL) subcut TID #15 mL 05/13/24 [Rx Confirmed 07/01/24] insulin glargine 100 unit/mL (3 mL) subcutaneous pen 45 unit (0.45 mL) subcut QAM #15 mL 05/13/24 [Rx Confirmed 07/01/24] lisinopril 40 mg tablet 40 mg PO QDAY #30 tabs 05/13/24 [Rx Confirmed 07/01/24] metformin 500 mg tablet 500 mg PO BIDWMEAL #60 tabs 05/13/24 [Rx Confirmed 07/01/24] carvedilol 25 mg tablet (Coreg) 25 mg PO BID #60 tabs 06/03/24 [Rx Confirmed 07/01/24] dapagliflozin propanediol 10 mg tablet (Farxiga) 10 mg PO QDAY Diabetes, HFpEF #30 tabs 06/03/24 [Rx Confirmed 07/01/24] lactulose 20 gram oral packet 20 g PO BID #60 ea 06/03/24 [Rx Confirmed 07/01/24] lancets (Accu-Chek Softclix Lancets) #100 ea 06/03/24 [Rx Confirmed 07/01/24] spironolactone 25 mg tablet 25 mg PO QDAY HTN #30 tabs 06/03/24 [Rx Confirmed 07/01/24] blood-glucose meter,continuous (FreeStyle [place] 3 [place]) #1 ea 06/17/24 [Rx Confirmed 07/01/24] blood-glucose sensor (FreeStyle [place] 3 Sensor device) #2 ea 06/17/24 [Rx Confirmed 07/01/24] gabapentin 300 mg capsule 300 mg PO TID #90 caps 06/17/24 [Rx Confirmed 07/01/24] lactulose 20 gram/30 mL oral solution 30 ml PO EVERYOTHERDAY PRN constipation 5 days #1,200 mL 06/17/24 [Rx Confirmed 07/01/24] naproxen 250 mg tablet 250 mg PO BID PRN pain #60 tabs 06/17/24 [Rx Confirmed 07/01/24] polyethylene glycol 3350 17 gram/dose oral powder (Miralax) 4 g PO QDAY constipation #238 grams 06/17/24 [Rx Confirmed 07/01/24] semaglutide 0.25 mg or 0.5 mg (2 mg/3 mL) subcutaneous pen injector (Ozempic) 0.25 mg (0.368 mL) subcut QWEEK #3 mL 06/17/24 [Rx Confirmed 07/01/24] linaclotide 72 mcg capsule (Linzess) 72 mcg PO QDAY 30 days #30 caps 07/01/24 [Rx] MICAELA Intake Visit Data Collection New Patient or Established: Established Patient (seen at [facility] within 3 years) Seen by Clinical Staff ONLY (RN/MICAELA): No Pain Present Currently: No Pain scale:: 0 Pain Scale Used: [place]/Numerical [place] Operator Required: No PCP or OBGYN visit in last 3 months: Yes Hx Now: No Do You Feel Safe at Home: Yes Authorities Contacted: N/A Smoking Status Smoking Status: Former smoker Immunization / Flu Flu Vaccine in the Last 12 Months: No Flu Vaccine Exclusion Criteria: No Exclusion Criteria Past Medical History Past Medical History NEUROLOGIC: Positive Neurological Disorders (diabetic neuropathy) and Head Trauma (fall 3 mons ago- bruising, knots on back of head, seeing double- okay now.) CARDIAC: Positive Peripheral Vascular Disease, Hypercholesterolemia and Hypertension; Negative Cardiac Disorders or Congestive Heart Failure RESPIRATORY: Negative Chronic Obstructive Pulmonary Disease (COPD) or Asthma GASTROINTESTINAL: Negative Gastrointestinal Bleed, Ulcer or Hemorrhoids GENITOURINARY: Negative Renal Disease MUSCULOSKELETAL: Positive Osteomyelitis (bilateral feet); Negative Arthritis ENT: Positive Head Trauma (fall 3 mons ago- bruising, knots on back of head, seeing double- okay now.) ENDOCRINE: Positive Endocrine Disorders and Diabetes Mellitus Type 2; Negative Diabetes Mellitus Type 1 HEMATOLOGIC: Negative Blood Disorders or Sickle Cell Disease PSYCHO/SOCIAL: Positive Anxiety OTHER HISTORY: Positive Falls (hit back of head, went to icu.) and MRSA (foot right); Negative Blood Transfusions or Anesthesia Reactions Family History FAMILY HISTORY: Positive Family Cancer (mom- motuth cancer. dad- lung cancer.); Negative Family Psychiatric Problems, Family Respiratory Disorders, Family Cardiac Disorders, Family Gastrointestinal Problems or Family Anesthesia Reaction Surgical History SURGICAL: Positive Amputation; Negative Cardiac Surgery Social History SMOKING STATUS: Smoking status: Former smoker SECOND HAND EXPOSURE: second hand exposure: No (5 cig/day x10 yrs- QUIT 15 yrs ago) ALCOHOL: Alcohol Intake: Never HOUSING: Housing: House LIVES WITH: Lives With: Family Patient [address] Social History Living Situation History Housing: House Housing Other:: Pt lives with sister Tobacco History Smoking Status: Former smoker Second Hand Smoke Exposure: No (5 cig/day x10 yrs- QUIT 15 yrs ago) Alcohol History Alcohol Intake: Never Domestic Abuse History Do You Feel Safe at Home: Yes Review of Systems Report any current symptoms Only answer those that you have currently: Past Medical History Past Medical History Have you ever been diagnosed with any of the following: Neurological Problems Head Trauma: Yes (fall 3 mons ago- bruising, knots on back of head, seeing double- okay now.) Cardiology Problems Peripheral Vascular Disease: Yes Hypercholesterolemia: Yes Congestive Heart Failure: No Hypertension: Yes Respiratory Problems Chronic Obstructive Pulmonary Disease (COPD): No Asthma: No Stomache/Intestinal Problems Gastrointestinal Bleed: No Ulcer: No Hemorrhoids: No Genital/Urinary Problems Renal Disease: No Musculoskeletal Problems Arthritis: No Osteomyelitis: Yes (bilateral feet) Endocrine Problems Diabetes Mellitus Type 1: No Diabetes Mellitus Type 2: Yes Blood Problems Sickle Cell Disease: No Psychologic Problems Anxiety: Yes Other Problems Falls: Yes (hit back of head, went to icu.) Blood Transfusions: No Anesthesia Reactions: No MRSA: Yes (foot right) History of Present Illness HPI Narrative Mr. Fitzgerald is a 54-year-old male with past medical history significant for insulin dependent type 2 diabetes, hypertension, diabetic neuropathy, coronary artery disease and chronic osteomyelitis of both R and L feet extremity (follows outpatient wound care every friday)presents to [facility] clinic for a 2 week follow up appointment. Pt states he has be compliant with medications and checks his glucose daily. finger stick glucose has been around 190's. Pt endorses improvement of his feet bilateraly since he has been attending [facility] and reguarly keep his feet clean at home. Pt's sister helps his with his medications and his appointments to stay compliant. Pt ambulates comfortable with a cane and at times wheelchair. Pt states he has been taking lactulose and miralax for chronic constipation that causes him abdominal discomfort and bloating. But it takes 2-3 days before he is able to have bowel movement. Pt states he tried his sister's linzess a couple of times which worked much better for him. And wanted to see if he can get his own prescription to try it since nothing else has worked for thus far. Pt denies chest pain, SOB or dizness. Pt states he does have some abdominal pain when he has gone a few days without bowel movement. Pt has an appointment coming up with the vascular surgeon in 2 weeks. Pt has no other complaints. Review of Systems Review of Systems Systems Reviewed: All systems reviewed, normal except as documented Objective/Exam Narrative Physical exam: GENERAL: A&Ox3 . Awake, Not in acute distress, mildy tachycardic NEURO: no focal neurological deficits HEENT: Atraumatic, Normocephalic. mucous membranes moist. Eyes open, symmetrical, & clear HEART: Normal Heart Sounds LUNGS: Clear to auscultation with no wheezing or crackles. ABDOMEN: soft, non-distended, non-tender, bowel sounds heard, no guarding or rebound tenderness SKIN: No Rash or ecchymoses EXTREMITIES: No edema, tenderness, able to move all 4 extremities, pt is wearing medical walking boots Assessment & Plan Diagnosis / Problem List (1) Constipation: Status: Chronic Qualifiers: Constipation type: unspecified constipation type Qualified Code(s): K59.00 - Constipation, unspecified Assessment & Plan: -pt states he has been taking lactulose and miralax and still has constipation along with abdominal discomfort and bloating. Even with the lactulose and miralax it takes 2-3 days for him to have a bowel movement. Plan: -Take Linzess Qdaily -Pt is encouraged to stay hydrated as linzess can cause dehydration which may lead to electrolye deficiency. -Pt is educated on not to take multiple laxatives at the same time daily. -do not take lactulose and miralax when taking Linzess. Office Procedures [facility] Level of Care Nursing/Assessment Patient Status: Established Patient Nursing Assessment/Reassessment: Medication Reconciliation, Update PMH in EMR an d Vital Signs Coordination of Care: Complex Care and Chronic Disease 1-5, Consent,records obtained, informed consent, [facility] Staff clarify orders Established Patient Charge Established Patient Point Assignment: 85 Established Patient Point Charge: EP Level 3 (80-115)
[2024-07-01 13:44] VITALS: BP 142/95; PULSE 105; RESP 18; TEMP 36.6; O2SAT 99; BMI 30.5
== END 2024-07-01 15:08 | disposition home or self-care (01) ==
LOC: HODAHC 13:08
PROVIDERS: Supervising Provider Internal Medicine
DX: K59.00 Constipation, unspecified (principal); I10 Essential (primary) hypertension; E11.40 Type 2 diabetes mellitus with diabetic neuropathy, unspecified; Z79.4 Long term (current) use of insulin
CPT/HCPCS: 99213; G0463

== ENCOUNTER → 2024-07-07 | Outpatient (CLI) | payer MEDICAID, SELFPAY | END | disposition home or self-care (01) | LOC: SWHD 14:16 | PROVIDERS: PCP Family Medicine; Referring Provider Family Medicine; Visit Provider Student in an Organized Health Care Education/Training Program | DX: L97.415 Non-pressure chronic ulcer of right heel and midfoot with muscle involvement without evidence of necrosis (principal); L97.522 Non-pressure chronic ulcer of other part of left foot with fat layer exposed; I10 Essential (primary) hypertension; E11.40 Type 2 diabetes mellitus with diabetic neuropathy, unspecified; Z79.4 Long term (current) use of insulin; Z79.84 Long term (current) use of oral hypoglycemic drugs | CPT/HCPCS: 11042; A9270 ==

== ENCOUNTER → 2024-07-16 | Outpatient (CLI) | payer MEDICAID, SELFPAY | END | disposition home or self-care (01) | LOC: SWHD 13:45 | PROVIDERS: PCP Family Medicine; Referring Provider Family Medicine; Visit Provider Physician Assistant | DX: E11.621 Type 2 diabetes mellitus with foot ulcer (principal); L97.412 Non-pressure chronic ulcer of right heel and midfoot with fat layer exposed; L97.522 Non-pressure chronic ulcer of other part of left foot with fat layer exposed; I10 Essential (primary) hypertension; E11.40 Type 2 diabetes mellitus with diabetic neuropathy, unspecified; Z79.4 Long term (current) use of insulin; Z79.84 Long term (current) use of oral hypoglycemic drugs | CPT/HCPCS: 97597; A9270 ==

== ENCOUNTER → 2024-07-22 | Outpatient (CLI) | payer MEDICAID, SELFPAY | END | disposition home or self-care (01) | LOC: SWHD 13:59 | PROVIDERS: PCP Family Medicine; Referring Provider Family Medicine; Visit Provider Student in an Organized Health Care Education/Training Program | DX: E11.621 Type 2 diabetes mellitus with foot ulcer (principal); L97.415 Non-pressure chronic ulcer of right heel and midfoot with muscle involvement without evidence of necrosis; L97.522 Non-pressure chronic ulcer of other part of left foot with fat layer exposed; I10 Essential (primary) hypertension; E11.40 Type 2 diabetes mellitus with diabetic neuropathy, unspecified; Z79.4 Long term (current) use of insulin; Z79.84 Long term (current) use of oral hypoglycemic drugs | CPT/HCPCS: 11042; A9270 ==

== ENCOUNTER 2024-07-29 09:39 | Outpatient (AMB) | payer MEDICAID, SELFPAY ==
--- NOTE | 2024-07-29 09:41 | PD.RESCLINIC ---
Vital Signs 07/29/24 09:42 Height 1.93 m Height Method Stated Weight 115.666 kg Weight Measurement Method Standing Scale BMI 31.0 BP 80/52 L Blood Pressure Source Automatic Cuff Blood Pressure Location Left Upper Arm Position Sitting Respiration 16 Pulse 108 H Pulse Source Monitor Temp 97.0 F Temp Source Temporal Artery Scan Pulse Oximetry (%) 98 Oxygen Delivery Method Room Air Allergies/Meds Allergies & Medications Allergies vancomycin Allergy (Severe, Verified 07/29/24 09:41) Swelling of Lip/Tongue/Throat Medication Reconciliation gabapentin 300 mg capsule 300 mg PO TID 09/27/17 [History Confirmed 07/29/24] magnesium 200 mg tablet 200 mg PO QDAY #10 tabs 01/06/24 [Rx Confirmed 07/29/24] acetaminophen 325 mg tablet 650 mg (2 x 325 mg) PO Q6H PRN Pain Scale 1-3 (Mild #14 tabs 03/12/24 [Rx Confirmed 07/29/24] aspirin 81 mg tablet,delayed release 81 mg PO QDAY #30 tabs 03/12/24 [Rx Confirmed 07/29/24] multivitamin with folic acid 400 mcg tablet (Tab-A-John) 1 tab PO QDAY #30 tabs 03/12/24 [Rx Confirmed 07/29/24] docusate sodium 100 mg capsule (Colace) 100 mg PO BID constipation #60 caps 04/01/24 [Rx Confirmed 07/29/24] blood sugar diagnostic (Accu-Chek Guide test strips) #100 ea 04/15/24 [Rx Confirmed 07/29/24] blood-glucose meter (Accu-Chek Guide Glucose Meter) #1 ea 04/15/24 [Rx Confirmed 07/29/24] lactulose 20 gram oral packet 20 g PO BID #60 ea 06/03/24 [Rx Confirmed 07/29/24] lancets (Accu-Chek Softclix Lancets) #100 ea 06/03/24 [Rx Confirmed 07/29/24] blood-glucose meter,continuous (FreeStyle Ninoska 3 [place]) #1 ea 06/17/24 [Rx Confirmed 07/29/24] blood-glucose sensor (FreeStyle Ninoska 3 Sensor device) #2 ea 06/17/24 [Rx Confirmed 07/29/24] lactulose 20 gram/30 mL oral solution 30 ml PO EVERYOTHERDAY PRN constipation 5 days #1,200 mL 06/17/24 [Rx Confirmed 07/29/24] polyethylene glycol 3350 17 gram/dose oral powder (Miralax) 4 g PO QDAY constipation #238 grams 06/17/24 [Rx Confirmed 07/29/24] aspirin 81 mg tablet,delayed release (Adult Aspirin Regimen) 81 mg PO QDAY 30 days #30 tabs 07/29/24 [Rx] carvedilol 25 mg tablet (Coreg) 25 mg PO BID #60 tabs 07/29/24 [Rx] dapagliflozin propanediol 10 mg tablet (Farxiga) 10 mg PO QDAY Diabetes, HFpEF #30 tabs 07/29/24 [Rx] gabapentin 300 mg capsule 300 mg PO TID #90 caps 07/29/24 [Rx] insulin aspart U-100 100 unit/mL (3 mL) subcutaneous pen 5 unit (0.05 mL) subcut TID #15 mL 07/29/24 [Rx] insulin glargine 100 unit/mL (3 mL) subcutaneous pen 45 unit (0.45 mL) subcut QAM #15 mL 07/29/24 [Rx] linaclotide 72 mcg capsule (Linzess) 72 mcg PO QDAY 30 days #30 caps 07/29/24 [Rx] lisinopril 40 mg tablet 40 mg PO QDAY #30 tabs 07/29/24 [Rx] metformin 500 mg tablet 500 mg PO BIDWMEAL #60 tabs 07/29/24 [Rx] naproxen 250 mg tablet 250 mg PO BID PRN pain #60 tabs 07/29/24 [Rx] semaglutide 0.25 mg or 0.5 mg (2 mg/3 mL) subcutaneous pen injector (Ozempic) 0.5 mg (0.736 mL) subcut QWEEK #3 mL 07/29/24 [Rx] spironolactone 25 mg tablet 25 mg PO QDAY HTN #30 tabs 07/29/24 [Rx] MA Intake Visit Data Collection New Patient or Established: Established Patient (seen at 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: No PCP or OBGYN visit in last 3 months: Yes Hx Now: No Do You Feel Safe at Home: Yes Authorities Contacted: N/A Smoking Status Smoking Status: Former smoker Immunization / Flu Flu Vaccine in the Last 12 Months: No Flu Vaccine Exclusion Criteria: No Exclusion Criteria Past Medical History Past Medical History NEUROLOGIC: Positive Neurological Disorders (diabetic neuropathy) and Head Trauma (fall 3 mons ago- bruising, knots on back of head, seeing double- okay now.) CARDIAC: Positive Peripheral Vascular Disease, Hypercholesterolemia and Hypertension; Negative Cardiac Disorders or Congestive Heart Failure RESPIRATORY: Negative Chronic Obstructive Pulmonary Disease (COPD) or Asthma GASTROINTESTINAL: Negative Gastrointestinal Bleed, Ulcer or Hemorrhoids GENITOURINARY: Negative Renal Disease MUSCULOSKELETAL: Positive Osteomyelitis (bilateral feet); Negative Arthritis ENT: Positive Head Trauma (fall 3 mons ago- bruising, knots on back of head, seeing double- okay now.) ENDOCRINE: Positive Endocrine Disorders and Diabetes Mellitus Type 2; Negative Diabetes Mellitus Type 1 HEMATOLOGIC: Negative Blood Disorders or Sickle Cell Disease PSYCHO/SOCIAL: Positive Anxiety OTHER HISTORY: Positive Falls (hit back of head, went to icu.) and MRSA (foot right); Negative Blood Transfusions or Anesthesia Reactions Family History FAMILY HISTORY: Positive Family Cancer (mom- motuth cancer. dad- lung cancer.); Negative Family Psychiatric Problems, Family Respiratory Disorders, Family Cardiac Disorders, Family Gastrointestinal Problems or Family Anesthesia Reaction Surgical History SURGICAL: Positive Amputation; Negative Cardiac Surgery Social History SMOKING STATUS: Smoking status: Former smoker SECOND HAND EXPOSURE: second hand exposure: No (5 cig/day x10 yrs- QUIT 15 yrs ago) ALCOHOL: Alcohol Intake: Never HOUSING: Housing: House LIVES WITH: Lives With: Family Patient [address] Social History Living Situation History Housing: House Housing Other:: Pt lives with sister Tobacco History Smoking Status: Former smoker Second Hand Smoke Exposure: No (5 cig/day x10 yrs- QUIT 15 yrs ago) Alcohol History Alcohol Intake: Never Domestic Abuse History Do You Feel Safe at Home: Yes Review of Systems Report any current symptoms Only answer those that you have currently: Past Medical History Past Medical History Have you ever been diagnosed with any of the following: Neurological Problems Head Trauma: Yes (fall 3 mons ago- bruising, knots on back of head, seeing double- okay now.) Cardiology Problems Peripheral Vascular Disease: Yes Hypercholesterolemia: Yes Congestive Heart Failure: No Hypertension: Yes Respiratory Problems Chronic Obstructive Pulmonary Disease (COPD): No Asthma: No Stomache/Intestinal Problems Gastrointestinal Bleed: No Ulcer: No Hemorrhoids: No Genital/Urinary Problems Renal Disease: No Musculoskeletal Problems Arthritis: No Osteomyelitis: Yes (bilateral feet) Endocrine Problems Diabetes Mellitus Type 1: No Diabetes Mellitus Type 2: Yes Blood Problems Sickle Cell Disease: No Psychologic Problems Anxiety: Yes Other Problems Falls: Yes (hit back of head, went to icu.) Blood Transfusions: No Anesthesia Reactions: No MRSA: Yes (foot right) History of Present Illness HPI Narrative 04/01/2024 54-year-old male past medical history of chronic osteomyelitis of both R and L lower extremity (h/x of previous amputations) type 2 diabetes on insulin, hypertension, diabetic neuropathy, coronary artery disease who comes to the clinic today for a follow up from the hospital in which he was admitted for osteomyelitis of the R foot, s/p debridement of both feet, and was discharged on IV rocephin and PO doxycycline to be continued until 05/06. Pt is complaining of abd pain and foot pain. Says he has not been sleeping well either, and attributes it to his abdominal pain. Says he sleeps at 9/10 pm everynight, but wakes up around 2am bc of abdominal pain, and then will wake back up at 5am. Denies having more than one caffeinated beverage throughout the day which is a coffee in the morning, and does not take naps throughout the day. He also says that he has not had a bowel movement since he was discharged from the hospital on 03/29. Endorses some loss of appetite too but says its due to his constipation. Also states that he has not taken his doxycycline as he was not able to pick it up from the pharmacy. 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 Also endorses some exertional dyspnea but denies swelling in his legs. Has not gotten a colonscopy before, no other complaints at this time. 04/15/2024: 54-year-old male who comes into the office today for follow-up of osteomyelitis, blood pressure, insomnia, and constipation. Patient reports that he has not had a bowel movement since Friday. Says he has been taking his laxatives as prescribed. Says that him not having bowel movements in addition to his leg pain and has not allowed him to sleep. Has been taking all his medicines including his blood pressure medicines as prescribed. Has been getting home health for his antibiotics for osteomyelitis. Has been trying to adjust his diet. Says that his sugars 220s at home. Says that he needs a new glucometer as he has lost his. No other complaints at this time. 05/13/2024: 54 y/o male who comes into the office today for follow-up of osteomyelitis, hypertension and was recently discharged from the ER on 05/12/2024 for evaluation of osteomyelitis. Patient reports that he went to the ER yesterday because he noticed a couple new ulcers on his right lower extremity, the same leg that he had operated on. He denies having any fever or chills, but did say that when he was in the ER his blood sugar was 480. He was worked up, x-ray showed chronic osteomyelitis and was told to follow-up with wound care upon discharge. When he came to the office, blood sugar was checked and he had blood sugar of 360, said he ate last night but has not eaten anything this morning however he had a diet Coke this morning. He is also inquiring about where he is at for his GI referral, is requesting some naproxen as he has said that helps him with his pain. Says he has bowel movements every 3 days or so, last bowel movement was on Friday. No other complaints at this time 06/03/2024 54-year-old male with past medical history of osteomyelitis of right and left foot s/p amputation, IDDM, hypertension, diabetic nephropathy, and CAD came in to the [facility] today for follow-up. On past visits patient was still complaining of constipation and his blood pressure was still elevated. Today his blood sugar was in the 270s he states that he has been around there at home as well. His blood pressure was also elevated today at 164/84. Patient states she has been doing quite well and that his wound has been improving as he has been going to wound care weekly. Patient states that he has had bowel movements, but he describes them as being hard and small like pellets. Has not seen a GI specialist yet as he has not gotten called by their offices, will follow up on referral. Given patient's uncontrolled hypertension and diabetes we will add farxiga and spironolactone to his regimen to improve blood sugars and blood pressure. Patient has no other complaints at this time.Will have patient follow-up in 1 month with repeat A1c, CMP, and microalbumin. 06/17/2024: Patient examined at bedside today. Seen Dr. Cruz on last visit on June 03, 2024. Patient was post to get lab work done including A1c CMP and microalbumin, however this is appointment. Says that he has been doing good, however he says that his sugars have been uncontrolled. He noticed that they are sometimes in the 180s, however he was [facility] recently and had a hypoglycemic episode in which he was diaphoretic and felt weak. He was given candy and juice and it resolved. He says that his sugars are typically around 180s to 200s. He said he did not eat this morning but did not check his sugar. Fingerstick showed sugar of 317. He also says that he has been having good bowel movements, but needs refills on his lactulose and MiraLAX, last bowel movement was 2 days ago. He also says that he has been taking his medicines as prescribed including his Farxiga and spironolactone. He was also complaining of some generalized fatigue and was inquiring about testosterone, but says that he is not sexually active. He says that he used to get testosterone shots while he was in [place] if his levels were below 400. No other complaints at this time 07/29/2024: Patient examined at bedside today. Was seen in mid June by Dr. Hutchins. Patient was able to go get labs including A1c CMP CBC. Patient's A1c was 10.7, creatinine 0.8, fasting glucose 220. Patient reports that he takes his glucose checks every day and it is around the 200s. He does not have CGM as it was not approved. He has been taking all his medicines as prescribed. He does not take his blood pressure at home, however he was instructed to take his blood pressure at home and record the measurements including sugars and was given a paper to do so. He says that his bowel movements have been good every 2 to 3 days with Linzess and has not been using any other medicines for this. He says he feels good and is denying any chest pain, shortness of breath or headache. He has been continuing to be seen by wound care and has been getting debridements. He says that he noticed that he has lost about 20 pounds and has been taking his Ozempic as prescribed. He says he is out of his medicines and needs refills on them. He has no other complaints at this time. Review of Systems Review of Systems Narrative Review of Systems: Constitutional: No fever, chills, fatigue, weakness, weight loss HEENT: No eye pain, vision loss, ear pain, hearing loss, dysphagia, Cardiovascular: No chest pain, palpitations, edema, pain with walking Respiratory: No cough, shortness of breath, wheezing GI: No NVD, abdominal pain, constipation, blood in stool, loss of appetite, heartburn Extremities: No presence of pitting edema MSK: No back pain, joint pain, joint swelling Neuro: No dizziness, numbness, weakness, headaches, seizures, tremors Psych: No anxiety, depression Objective/Exam Narrative Physical exam: General: AAOx3, NAD, appears to have lost some weight, however still obese HEENT: Moist mucous membranes, conjunctiva clear, EOMI, PERRLA, Cardiovascular: S1, S2, radial pulses +2 bilat, tachycardic Pulmonary: CTAB bilat no cough, no wheezing GI: No tenderness to light or deep palpitation, no guarding, rigidity, rebound tenderness or distension Extremities: Pt is wearing boots, no pitting edema bilat Neuro: AAOx3, no focal motor or sensory deficits in the UE or LE bilat Psych: Good judgement, thought and behavior. 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 NovoLog 5 units 3 times daily with meals ?Metformin 500 twice daily -Continue Farxiga 10mg qday, recommended to check morning BG and if BG is below 100 to decrease long acting insulin by 1 unit at a time to avoid hypoglycemia ?Increase to Ozempic 0.5 mg (2) Hypertension: Status: Chronic Qualifiers: Hypertension type: primary hypertension Qualified Code(s): I10 - Essential (primary) hypertension Assessment & Plan: Blood pressure controlled today Will continue with current management Creatinine 0.8 Plan: ?Coreg 25 twice daily -Lisinopril 40mg qday -Continue spironolactone 25mg qday ?Pending cardiology referral (3) Osteomyelitis of lower extremity: Status: Acute Assessment & Plan: Improving Plan: -Continue with wound care (4) Constipation: Status: Chronic Qualifiers: Constipation type: unspecified constipation type Qualified Code(s): K59.00 - Constipation, unspecified Assessment & Plan: Bowel movements are improving, every 2 to 3 days Patient to make appointment with GI Plan: -Continue with Linzess 72 mcg daily -Pending GI specialist appt and colonoscopy (5) Congestive heart failure with left ventricular diastolic dysfunction: Status: Acute Qualifiers: Congestive heart failure chronicity: chronic Qualified Code(s): I50.32 - Chronic diastolic (congestive) heart failure Assessment & Plan: Echo shows grade 1 diastolic dysfunction, preserved ejection fraction around 60% Does complain of injection dyspnea Does not complain of pitting edema Will continue GDMT therapy Plan: -Coreg 25 BID -Spironolactone 25mg qday -Farxiga 10mg qday Office Procedures [facility] Level of Care Nursing/Assessment Patient Status: Established Patient Nursing Assessment/Reassessment: Medication Reconciliation, Update PMH in EMR and Vital Signs Coordination of Care: Complex Care and Chronic Disease 1-5, Consent,records obtained, informed consent, Education Simp Pt/Fam, Lab and Imaging orders and Staff clarify orders Established Patient Charge Established Patient Point Assignment: 100 Established Patient Point Charge: EP Level 3 (80-115) Results Glucose Glucose 254 mg/dL Last Edit by Mary Montana MA on 07/29/24 10:02
[2024-07-29 09:42] VITALS: BP 80/52; PULSE 108; RESP 16; TEMP 36.1; O2SAT 98; BMI 31.0
== END 2024-07-29 10:38 | disposition home or self-care (01) ==
LOC: HODAHC 09:39
PROVIDERS: Supervising Provider Internal Medicine
DX: E11.618 Type 2 diabetes mellitus with other diabetic arthropathy (principal); K59.00 Constipation, unspecified; I11.0 Hypertensive heart disease with heart failure; I50.22 Chronic systolic (congestive) heart failure; Z79.4 Long term (current) use of insulin; I25.10 Atherosclerotic heart disease of native coronary artery without angina pectoris
CPT/HCPCS: 99213; G0463

== ENCOUNTER 2024-08-09 13:59 | Emergency (ER) | payer SELFPAY ==
[2024-08-09 14:20] VITALS: BP 168/76; PULSE 107; RESP 20; TEMP 36.9; O2SAT 98; BMI 29.8
--- NOTE | 2024-08-09 14:25 | XR_ITS ---
Examination: Foot, right, 3 views Technique: AP, oblique, lateral views foot, 3 views Date and time of exam: August 07, 2024 1429 hours INDICATIONS: Redness swelling and pain involving the right foot this week, cortical erosions medial distal medial cuneiform, plantar surface medial cuneiform and foot films May 12, 2024 FINDINGS: Severe osteopenia Air density in the soft tissue adjacent to the amputated metatarsals On this study, no vivek cortical bone destruction IMPRESSION: Large soft tissue defects at the amputated end of this foot No vivek cortical bone destruction However, MRI foot without contrast follow-up would best assess for osteomyelitis
[2024-08-09 15:23] LABS: Lactate (Lactic Acid) 1.3 mMol/L (0.4-2.0)
[2024-08-09 15:24] LABS: Basophils % (Auto) 0 % (0-2.5); Eosinophils # (Auto) 0.2 Thou/mm3 (0.0-0.5); Eosinophils % (Auto) 2 % (0-10); Hematocrit 45.7 % (41.0-53.0); Hemoglobin 14.7 g/dL (13.5-16.0); Immature Granulocytes % (Auto) 1 % (0-0); Immature Granulocytes Auto 0.06 Thou/mm3 (0.00-0.00); Lymphocytes # (Auto) 1.4 Thou/mm3 (1.0-4.8); Lymphocytes % (Auto) 14 % (10-50); Mean Corpuscular HGB Conc 32.2 g/dl (31.0-37.0); Mean Corpuscular Hemoglobin 27.3 pg (25.0-35.0); Mean Corpuscular Volume 85 fL (80-100); Monocytes # (Auto) 0.5 Thou/mm3 (0.0-0.8); Monocytes % (Auto) 5 % (0-12); Neutrophils # (Auto) 7.8 Thou/mm3 (1.8-7.7); Neutrophils % (Auto) 78 % (37-80); Nucleated Red Blood Cell % 0 /100 WBC (0); Platelet Count 397 Thou/mm3 (140-440); RDW Standard Deviation 41.8 fL (35.1-43.9); Red Blood Count 5.39 Miln/mm3 (4.50-5.90)
[2024-08-09 15:39] LABS: Sed Rate (ESR) 126 mm/hr (0-20)
[2024-08-09 15:51] LABS: Alanine Aminotransferase 36 U/L (10-49); Albumin, Serum 4.4 gm/dL (3.5-5.0); Albumin/Globulin Ratio 1.1 (1.2-2.2); Alkaline Phosphatase 159 U/L (46-116); Anion Gap 10 (7-16); Aspartate Amino Transferase 17 U/L (0-34); BUN/Creatinine Ratio 12 Ratio (12-20); Bilirubin,Total 0.5 mg/dL (0.3-1.2); Blood Urea Nitrogen 11 mg/dL (9-23); C-Reactive Protein 18.7 mg/dL (0.0-0.9); Calcium 9.7 mg/dL (8.3-10.6); Calcium (Corrected) 9.7 mg/dL (8.5-10.1); Carbon Dioxide 23.6 mMol/L (20.0-31.0); Chloride 103 mMol/L (98-107); Creatinine (Component) 0.9 mg/dL (0.6-1.3); Estimated Creatinine Clearance 129.6 mL/min (>60); Glucose 219 mg/dL (74-106); Osmolality,Calculated 280 (275-295); Potassium 3.9 mMol/L (3.4-5.1); Procalcitonin 0.17 ng/ml (0.0-0.49); Sodium 137 mMol/L (136-145); Total Protein 8.4 gm/dL (5.7-8.2); eGFR > 60 See Note
--- NOTE | 2024-08-09 17:05 | PD.EDRME ---
Rapid Medical Screening Exam RME Arrival date/time: 08/09/24 13:59 54-year-old male with a history of type 2 diabetes, hypertension, hyperlipidemia presents to the emergency room with a chief complaint of 2 wounds to the amputation on his right foot. Patient states he had an amputation of his foot 5 years ago and states he has been developing sores to the area. Patient states he was sent over by the wound care clinic. I have greeted and performed a focused initial assessment of this patient. A comprehensive ED assessment and evaluation of the patient, analysis of all test results, and completion of the medical decision making process will be conducted by additional ED providers. Chief Complaint: Wound/Laceration Time Seen by Provider: 08/09/24 14:09 Vital signs: Vital Signs Temperature 98.4 F 08/09/24 14:20 Pulse Rate 107 H 08/09/24 14:20 Respiratory Rate 20 08/09/24 14:20 Blood Pressure 168/76 H 08/09/24 14:20 Pulse Oximetry (%) 98 08/09/24 14:20 Oxygen Delivery Method Room Air 08/09/24 14:20 Vital signs reviewed by provider: Yes
--- NOTE | 2024-08-09 19:11 | PD.EDADULT ---
ED General RME/HPI General Chief complaint: Wound/Laceration Stated complaint: OPEN WOUND X 2 AT AMPUTATION SITE ON R) FOOT Time Seen by Provider: 08/09/24 14:09 Arrival date/time: 08/09/24 13:59 CC: New foot stump blister HPI patient had a blister lifted off the foot stump of his right foot at wound management and it was debrided extensively. Patient was then referred to the emergency room for further workup. Patient is afebrile nontoxic-appearing not in any acute distress. Has existing stump ulcer on the sole of the foot. RME / HPI RME / HPI narrative: 08/09/24 13:59 54-year-old male with a history of type 2 diabetes, hypertension, hyperlipidemia presents to the emergency room with a chief complaint of 2 wounds to the amputation on his right foot. Patient states he had an amputation of his foot 5 years ago and states he has been developing sores to the area. Patient states he was sent over by the wound care clinic. I have greeted and performed a focused initial assessment of this patient. A comprehensive ED assessment and evaluation of the patient, analysis of all test results, and completion of the medical decision making process will be conducted by additional ED providers. Related Data Home Medications ?Medication ?Instructions ?Recorded ?Confirmed gabapentin 300 mg capsule 300 mg PO TID 09/27/17 07/29/24 Previous Rx's ?Medication ?Instructions ?Recorded magnesium 200 mg tablet 200 mg PO QDAY #10 tabs 01/06/24 acetaminophen 325 mg tablet 650 mg (2 x 325 mg) PO Q6H PRN 03/12/24 Pain Scale 1-3 (Mild #14 tabs aspirin 81 mg tablet,delayed 81 mg PO QDAY #30 tabs 03/12/24 release multivitamin with folic acid 400 1 tab PO QDAY #30 tabs 03/12/24 mcg tablet (Tab-A-John) docusate sodium 100 mg capsule 100 mg PO BID constipation #60 caps 04/01/24 (Colace) blood sugar diagnostic (Accu-Chek #100 ea 04/15/24 Guide test strips) blood-glucose meter (Accu-Chek #1 ea 04/15/24 Guide Glucose Meter) lactulose 20 gram oral packet 20 g PO BID #60 ea 06/03/24 lancets (Accu-Chek Softclix #100 ea 06/03/24 Lancets) blood-glucose meter,continuous #1 ea 06/17/24 (FreeStyle Ninoska 3 Orange) blood-glucose sensor (FreeStyle #2 ea 06/17/24 Ninoska 3 Sensor device) lactulose 20 gram/30 mL oral 30 ml PO EVERYOTHERDAY PRN 06/17/24 solution constipation 5 days #1,200 mL polyethylene glycol 3350 17 4 g PO QDAY constipation #238 grams 06/17/24 gram/dose oral powder (Miralax) aspirin 81 mg tablet,delayed 81 mg PO QDAY 30 days #30 tabs 07/29/24 release (Adult Aspirin Regimen) carvedilol 25 mg tablet (Coreg) 25 mg PO BID #60 tabs 07/29/24 dapagliflozin propanediol 10 mg 10 mg PO QDAY Diabetes, HFpEF #30 07/29/24 tablet (Farxiga) tabs gabapentin 300 mg capsule 300 mg PO TID #90 caps 07/29/24 insulin aspart U-100 100 unit/mL 5 unit (0.05 mL) subcut TID #15 mL 07/29/24 (3 mL) subcutaneous pen insulin glargine 100 unit/mL (3 45 unit (0.45 mL) subcut QAM #15 mL 07/29/24 mL) subcutaneous pen linaclotide 72 mcg capsule 72 mcg PO QDAY 30 days #30 caps 07/29/24 (Linzess) lisinopril 40 mg tablet 40 mg PO QDAY #30 tabs 07/29/24 metformin 500 mg tablet 500 mg PO BIDWMEAL #60 tabs 07/29/24 naproxen 250 mg tablet 250 mg PO BID PRN pain #60 tabs 07/29/24 semaglutide 0.25 mg or 0.5 mg (2 0.5 mg (0.736 mL) subcut QWEEK #3 07/29/24 mg/3 mL) subcutaneous pen injector mL (Ozempic) spironolactone 25 mg tablet 25 mg PO QDAY HTN #30 tabs 07/29/24 Allergies Allergy/AdvReac Type Severity Reaction Status Date / Time vancomycin Allergy Severe Swelling Verified 08/09/24 14:04 of Lip/Tongue/Throat Review of Systems Review of Systems Narrative Review of Systems: GEN: No fever, no chills, no weight loss EYES: No discharge, no visual changes, no pain HEENT: No ear pain, no congestion, no sore throat PULM: No shortness of breath, no cough, no congestion CV: No chest pain, no dyspnea on exertion, no palpitations GI: No nausea, no vomiting, no diarrhea, no pain, no constipation : No frequency, no urgency, no dysuria MUSC/SKEL: No joint pain, no back pain SKIN:+ Foot ulcer, no rash PSYCH: No hallucinations, no depression HEME/LYMPH: No easy bleeding or bruising tendencies NEURO: No weakness, no headache Past Medical History Past Medical History NEUROLOGIC: Positive Neurological Disorders (diabetic neuropathy) and Head Trauma (fall 3 mons ago- bruising, knots on back of head, seeing double- okay now.) CARDIAC: Positive Peripheral Vascular Disease, Hypercholesterolemia and Hypertension; Negative Cardiac Disorders or Congestive Heart Failure RESPIRATORY: Negative Chronic Obstructive Pulmonary Disease (COPD) or Asthma GASTROINTESTINAL: Negative Gastrointestinal Bleed, Ulcer or Hemorrhoids GENITOURINARY: Negative Renal Disease MUSCULOSKELETAL: Positive Musculoskeletal Disorders and Osteomyelitis (bilateral feet); Negative Arthritis ENT: Positive Head Trauma (fall 3 mons ago- bruising, knots on back of head, seeing double- okay now.) ENDOCRINE: Positive Endocrine Disorders and Diabetes Mellitus Type 2; Negative Diabetes Mellitus Type 1 HEMATOLOGIC: Negative Blood Disorders or Sickle Cell Disease PSYCHO/SOCIAL: Positive Anxiety OTHER HISTORY: Positive Falls (hit back of head, went to icu.) and MRSA (foot right); Negative Blood Transfusions or Anesthesia Reactions Family History FAMILY HISTORY: Positive Family Cancer (mom- motuth cancer. dad- lung cancer.); Negative Family Psychiatric Problems, Family Respiratory Disorders, Family Cardiac Disorders, Family Gastrointestinal Problems or Family Anesthesia Reaction Surgical History SURGICAL: Positive Amputation; Negative Cardiac Surgery Social History SMOKING STATUS: Never smoker SECOND HAND EXPOSURE: No (5 cig/day x10 yrs- QUIT 15 yrs ago) SUBSTANCE USE: does not use ED Exam Narrative Physical exam: [General: Obese not in any acute distress Head normocephalic HEENT: Within acceptable limits Neck is supple nontender Chest equal chest rise nontender to palpation Respiratory: Clear to auscultation no wheezes crackles or rubs CV: Rate rhythm is regular no murmurs rubs or clicks Abdomen is soft nontender no masses positive bowel sounds all 4 quadrants Back: No CVA tenderness no spinous process tenderness from cervical spine thoracic and lumbar spine Skin: 3 cm ulceration with debridement to the dorsum of the right foot stump. Minimal surrounding erythema no edema no exudate no streaking. Chronic ulcer to the bottom of the stump unchanged. With slow healing process. Otherwise skin is intact no petechiae rash induration ulceration or crepitus Extremities: Moving all extremity against resistance cap refill less than 2 seconds neurosensory intact Neuro: Awake alert oriented x3 Glascow coma 15 no focal deficits] Course Course Course Narrative: Patient's case presentation laboratory results clinical findings discussed with Dr. Bryant who states patient can be discharged home to follow-up with her in outpatient and continue with wound management Quality Measures VTE prophylaxis Orders Category Date Time Status XR foot comp RT min 3V Stat Exams 08/09/24 14:25 Completed Blood Culture (Lab) Stat Lab 08/09/24 15:10 Received CBC Stat Lab 08/09/24 15:05 Completed CMP [Comprehensive Metabolic Panel] Stat Lab 08/09/24 15:05 Completed CRP [C-Reactive Protein] Stat Lab 08/09/24 15:05 Completed ESR [Sed Rate (ESR)] Stat Lab 08/09/24 15:05 Completed Lactate (Lactic Acid) Stat Lab 08/09/24 15:05 Completed Procalcitonin Stat Lab 08/09/24 15:05 Completed Vital Signs Vital signs: Vital Signs Temperature 98.4 F 08/09/24 14:20 Pulse Rate 107 H 08/09/24 14:20 Respiratory Rate 20 08/09/24 14:20 Blood Pressure 168/76 H 08/09/24 14:20 Pulse Oximetry (%) 98 08/09/24 14:20 Oxygen Delivery Method Room Air 08/09/24 14:[address] [facility] Patient data External records reviewed:: [facility] previous records Clinical information provided by:: patient Social determinants that could affect healthcare access:: none Patient has the following chronic illnesses:: Diabetes chronic foot ulcers prior foot amputation How is presenting disease/condition affected by chronic disease/condition?: exacerbated by Evaluation data The following diagnostics were reviewed and interpreted by me:: lab results, radiology exam(s) and EKG tracing(s) Lab and/or radiology exams considered but not ordered:: CBC shows no acute leukocytosis anemia thrombocytopenia CMP shows mildly elevated glucose no other electrolyte imbalances renal impairment transaminitis or T. bili elevation X-ray of the foot shows no vivek cortical destruction CMP ESR both significantly elevated. Procalcitonin is 0.17. Interpretation Summary: New ulcer to the dorsum of the right foot stump Medications Medications considered but not ordered:: None Medication administrations:: None Consultations Consultation(s) initiated? (list below): No Diagnosis Differential Diagnosis ED Complaint MDM: Diabetic ulcer cellulitis abscess Most likely diagnosis given after review of the tests above:: Diabetic ulcer Admission Indicated Admission indicated?: not indicated Explain why admission is indicated or not indicated:: Stable for outpatient follow-up Admission Request Was there a request for admission?: No Disposition Plan Disposition Plan: Discharge Discharge Attestation Discharge Attestation: The patient and all family members were given an opportunity to ask questions and understood the discharge instructions. Discharge instructions specifically effects, indications for sooner follow up or return to the emergency department, and the expected course of current diagnosis. Patient condition: Stable Medical Decision Making Differential Diagnosis Differential Diagnosis: Diabetic ulcer cellulitis abscess Lab Data 08/09/24 15:05 08/09/24 15:05 Labs: Lab Results 08/09/24 Range/Units 15:05 WBC 10.0 (3.8-10.6) Thou/mm3 RBC 5.39 (4.50-5.90) Miln/mm3 Hgb 14.7 (13.5-16.0) g/dL Hct 45.7 (41.0-53.0) % MCV 85 (80-100) fL MCH 27.3 (25.0-35.0) pg MCHC 32.2 (31.0-37.0) g/dl RDW Std Deviation 41.8 (35.1-43.9) fL Plt Count 397 (140-440) Thou/mm3 Neut % (Auto) 78 (37-80) % Lymph % (Auto) 14 (10-50) % [place] % (Auto) 5 (0-12) % Eos % (Auto) 2 (0-10) % Baso % (Auto) 0 (0-2.5) % Neut # (Auto) 7.8 H (1.8-7.7) Thou/mm3 Lymph # (Auto) 1.4 (1.0-4.8) Thou/mm3 [place] # (Auto) 0.5 (0.0-0.8) Thou/mm3 Eos # (Auto) 0.2 (0.0-0.5) Thou/mm3 Baso # (Auto) 0.0 (0.0-0.2) Thou/mm3 Immature Gran # (Auto) 0.06 H (0.00-0.00) Thou/mm3 Absolute Nucleated RBC 0.00 (0.00-0.00) Thou/mm3 Immature Gran % 1 H (0-0) % Nucleated RBC % 0 (0) /100 WBC ESR 126 H (0-20) mm/hr Sodium 137 (136-145) mMol/L Potassium 3.9 (3.4-5.1) mMol/L Chloride 103 (98-107) mMol/L Carbon Dioxide 23.6 (20.0-31.0) mMol/L Anion Gap 10 (7-16) BUN 11 (9-23) mg/dL Creatinine 0.9 (0.6-1.3) mg/dL Estim Creat Clear Calc 129.6 (>60) mL/min eGFR > 60 (60 - ) See Note BUN/Creatinine Ratio 12 (12-20) Ratio Glucose 219 H (74-106) mg/dL Calculated Osmolality 280 (275-295) Lactic Acid 1.3 (0.4-2.0) mMol/L Calcium 9.7 (8.3-10.6) mg/dL Corrected Calcium 9.7 (8.5-10.1) mg/dL Total Bilirubin 0.5 (0.3-1.2) mg/dL AST 17 (0-34) U/L ALT 36 (10-49) U/L Alkaline Phosphatase 159 H (46-116) U/L C-Reactive Prot, Quant 18.7 H (0.0-0.9) mg/dL Total Protein 8.4 H (5.7-8.2) gm/dL Albumin 4.4 (3.5-5.0) gm/dL Globulin 4.0 H (2.3-3.5) gm/dL Albumin/Globulin Ratio 1.1 L (1.2-2.2) Procalcitonin 0.17 (0.0-0.49) ng/ml Discharge Plan Plan Patient Disposition: HOME (Self Care) Patient condition on transfer: Stable Prescriptions/Referrals Prescriptions/Med Rec: No Action (DME) lancets [Accu-Chek Softclix Lancets] Misc See Rx Instructions .Route Qty: 100 2RF Rx Instructions: Test TID and PRN lactulose 20 gram packet 20 g PO BID Qty: 60 5RF (DME) FreeStyle Ninoska 3 Sensor Device See Rx Instructions .Route Qty: 2 3RF Rx Instructions: Please apply every 14 days (DME) FreeStyle Ninoska 3 Orange Misc See Rx Instructions .Route Qty: 1 0RF Rx Instructions: As directed polyethylene glycol 3350 [Miralax] 17 gram/dose powder 4 g PO QDAY MDD 4 grams Qty: 238 5RF lactulose 20 gram/30 mL solution 30 ml PO EVERYOTHERDAY PRN (Reason: constipation) 5 Days Qty: 1200 0RF aspirin [Adult Aspirin Regimen] 81 mg tablet,delayed release (DR/EC) 81 mg PO QDAY 30 Days Qty: 30 3RF carvedilol [Coreg] 25 mg tablet 25 mg PO BID Qty: 60 4RF Rx Instructions: must administer with a meal/food dapagliflozin propanediol [Farxiga] 10 mg tablet 10 mg PO QDAY Qty: 30 5RF gabapentin 300 mg capsule 300 mg PO TID Qty: 90 0RF insulin aspart U-100 100 unit/mL (3 mL) insulin pen 5 unit subcut TID Qty: 15 2RF insulin glargine 100 unit/mL (3 mL) insulin pen 45 unit subcut QAM Qty: 15 2RF Linzess 72 mcg capsule 72 mcg PO QDAY 30 Days Qty: 30 3RF lisinopril 40 mg tablet 40 mg PO QDAY Qty: 30 2RF metformin 500 mg tablet 500 mg PO BIDWMEAL Qty: 60 2RF naproxen 250 mg tablet 250 mg PO BID PRN (Reason: pain) Qty: 60 0RF Ozempic 0.25 mg or 0.5 mg (2 mg/3 mL) pen injector 0.5 mg subcut QWEEK Qty: 3 2RF Rx Instructions: for 4 weeks spironolactone 25 mg tablet 25 mg PO QDAY Qty: 30 5RF docusate sodium [Colace] 100 mg capsule 100 mg PO BID MDD 200 mg Qty: 60 5RF (DME) blood-glucose meter [Accu-Chek Guide Glucose Meter] Misc See Rx Instructions .Route Qty: 1 0RF Rx Instructions: As directed (DME) Accu-Chek Guide test strips Strip See Rx Instructions .Route Qty: 100 2RF Rx Instructions: As directed gabapentin 300 MG capsule 300 mg PO TID magnesium 200 mg tablet 200 mg PO QDAY Qty: 10 0RF multivitamin with folic acid [Tab-A-John] 400 mcg Tablet 1 tab PO QDAY Qty: 30 0RF acetaminophen 325 mg Tablet 650 mg PO Q6H PRN (Reason: Pain Scale 1-3 (Mild) Qty: 14 0RF aspirin 81 mg Tablet,Delayed Release (Dr/Ec) 81 mg PO QDAY Qty: 30 0RF Referrals: Rosalinda Pizarro MD [Physician] - In 1 week No Primary/Family,Physician [Primary Care Provider] - In 1 week Problem List Clinical Impression: Diabetic foot ulcer Patient/Caregiver Discharge Instructions Other Activity Instructions:: Keep the wound clean and dry using a wet-to-dry dressing. Follow-up with wound management. Follow-up with Dr. Pizarro. If there is a worsening of symptoms including red streaks or fever return the emergency room for reevaluation. Education Materials: [facility] Additional Instructions: Have the wound management change wet-to-dry dressing continue with debridements follow-up with Dr. Bryant, as recommended. If there is a worsening of symptoms including fever or red streaks up your legs return to the emergency room immediately for further evaluation. Print Language: [place] Irish Stand Alone Forms: Catherine Award Info., Work/School Release, Patient Portal Info Letter PA/MARIEL Supervising Physician PA/ASSISTANT BOOKKEEPER Supervising Physician: Jaden Soler ENP
[2024-08-09 19:36] VITALS: BP 150/72; PULSE 100; RESP 20; TEMP 36.8; O2SAT 98
== END 2024-08-09 19:37 | disposition home or self-care (01) ==
PROVIDERS: Nurse Practitioner Family; Emergency Provider Emergency Medicine
DX: T87.89 Other complications of amputation stump (principal); L97.519 Non-pressure chronic ulcer of other part of right foot with unspecified severity; E11.621 Type 2 diabetes mellitus with foot ulcer; E11.40 Type 2 diabetes mellitus with diabetic neuropathy, unspecified; E11.51 Type 2 diabetes mellitus with diabetic peripheral angiopathy without gangrene; I10 Essential (primary) hypertension; E78.00 Pure hypercholesterolemia, unspecified; E66.9 Obesity, unspecified; Z68.29 Body mass index [BMI] 29.0-29.9, adult; Z89.431 Acquired absence of right foot; Y83.5 Amputation of limb(s) as the cause of abnormal reaction of the patient, or of later complication, without mention of misadventure at the time of the procedure
CPT/HCPCS: 36415; 73630; 80053; 83605; 84145; 85025; 85652; 86140; 87040; 99283

== ENCOUNTER → 2024-08-09 | Outpatient (CLI) | payer MEDICAID, SELFPAY | END | disposition home or self-care (01) | PROVIDERS: PCP Family Medicine; Referring Provider Family Medicine; Visit Provider Student in an Organized Health Care Education/Training Program | DX: E11.621 Type 2 diabetes mellitus with foot ulcer (principal); L97.412 Non-pressure chronic ulcer of right heel and midfoot with fat layer exposed; L97.522 Non-pressure chronic ulcer of other part of left foot with fat layer exposed; I10 Essential (primary) hypertension; E11.40 Type 2 diabetes mellitus with diabetic neuropathy, unspecified; Z79.4 Long term (current) use of insulin; Z79.84 Long term (current) use of oral hypoglycemic drugs | CPT/HCPCS: 11042; A9270 ==

== ENCOUNTER → 2024-08-16 | Outpatient (CLI) | payer MEDICAID, SELFPAY | END | disposition home or self-care (01) | PROVIDERS: PCP Family Medicine; Referring Provider Family Medicine; Visit Provider Surgery | DX: E11.621 Type 2 diabetes mellitus with foot ulcer (principal); L97.412 Non-pressure chronic ulcer of right heel and midfoot with fat layer exposed; L97.522 Non-pressure chronic ulcer of other part of left foot with fat layer exposed; I10 Essential (primary) hypertension; E11.40 Type 2 diabetes mellitus with diabetic neuropathy, unspecified; Z79.4 Long term (current) use of insulin; Z79.84 Long term (current) use of oral hypoglycemic drugs | CPT/HCPCS: 11042; A9270 ==

== ENCOUNTER → 2024-08-23 | Outpatient (CLI) | payer MEDICAID, SELFPAY | END | disposition home or self-care (01) | PROVIDERS: PCP Family Medicine; Referring Provider Family Medicine; Visit Provider Student in an Organized Health Care Education/Training Program | DX: E11.621 Type 2 diabetes mellitus with foot ulcer (principal); L97.415 Non-pressure chronic ulcer of right heel and midfoot with muscle involvement without evidence of necrosis; L97.522 Non-pressure chronic ulcer of other part of left foot with fat layer exposed; S91.104A Unspecified open wound of right lesser toe(s) without damage to nail, initial encounter; X58.XXXA Exposure to other specified factors, initial encounter; I10 Essential (primary) hypertension; E11.40 Type 2 diabetes mellitus with diabetic neuropathy, unspecified; Z79.4 Long term (current) use of insulin; Z79.84 Long term (current) use of oral hypoglycemic drugs | CPT/HCPCS: 97597; 17250; A9270 ==

== ENCOUNTER → 2024-08-25 | Outpatient (CLI) | payer MEDICAID, SELFPAY ==
[2024-08-25 13:24] LABS: Basophils % (Auto) 0 % (0-2.5); Eosinophils # (Auto) 0.3 Thou/mm3 (0.0-0.5); Eosinophils % (Auto) 3 % (0-10); Hematocrit 41.6 % (41.0-53.0); Hemoglobin 13.4 g/dL (13.5-16.0); Immature Granulocytes % (Auto) 1 % (0-0); Immature Granulocytes Auto 0.06 Thou/mm3 (0.00-0.00); Lymphocytes # (Auto) 2.6 Thou/mm3 (1.0-4.8); Lymphocytes % (Auto) 28 % (10-50); Mean Corpuscular HGB Conc 32.2 g/dl (31.0-37.0); Mean Corpuscular Hemoglobin 27.3 pg (25.0-35.0); Mean Corpuscular Volume 85 fL (80-100); Monocytes # (Auto) 0.5 Thou/mm3 (0.0-0.8); Monocytes % (Auto) 6 % (0-12); Neutrophils # (Auto) 5.7 Thou/mm3 (1.8-7.7); Neutrophils % (Auto) 62 % (37-80); Nucleated Red Blood Cell % 0 /100 WBC (0); Platelet Count 415 Thou/mm3 (140-440); Red Blood Count 4.91 Miln/mm3 (4.50-5.90); White Blood Count 9.1 Thou/mm3 (3.8-10.6)
[2024-08-25 13:43] LABS: Glucose Estimated Average 212 mg/dL (80-131)
[2024-08-25 13:56] LABS: Creatinine MALB Rnd Ur 83 mg/dL (30-125); Microalbumin Creat Ratio 157 mg/gCrea (<30); Microalbumin, Random Urine 130 mg/L (0-300)
[2024-08-25 13:57] LABS: Alanine Aminotransferase 13 U/L (10-49); Albumin, Serum 3.8 gm/dL (3.5-5.0); Alkaline Phosphatase 142 U/L (46-116); Anion Gap 8 (7-16); Aspartate Amino Transferase 14 U/L (0-34); BUN/Creatinine Ratio 11 Ratio (12-20); Bilirubin,Total 0.3 mg/dL (0.3-1.2); Blood Urea Nitrogen 12 mg/dL (9-23); Calcium 9.2 mg/dL (8.3-10.6); Calcium (Corrected) 9.4 mg/dL (8.5-10.1); Carbon Dioxide 25.8 mMol/L (20.0-31.0); Chloride 105 mMol/L (98-107); Creatinine (Component) 1.1 mg/dL (0.6-1.3); Glucose 192 mg/dL (74-106); Osmolality,Calculated 282 (275-295); Potassium 4.7 mMol/L (3.4-5.1); Sodium 139 mMol/L (136-145); Thyroid Stimulating Hormone 2.25 uIU/mL (0.55-4.78); Total Protein 7.8 gm/dL (5.7-8.2); eGFR > 60 See Note
== END | disposition home or self-care (01) ==
PROVIDERS: PCP Student in an Organized Health Care Education/Training Program; Referring Provider Internal Medicine; Visit Provider Surgery Vascular Surgery
DX: Z00.00 Encounter for general adult medical examination without abnormal findings (principal); I70.235 Atherosclerosis of native arteries of right leg with ulceration of other part of foot; E11.9 Type 2 diabetes mellitus without complications
CPT/HCPCS: 36415; 80053; 82043; 82570; 83036; 84443; 85025

== ENCOUNTER 2024-08-26 10:27 | Outpatient (AMB) | payer MEDICAID, SELFPAY ==
[2024-08-26 10:43] VITALS: BP 163/92; PULSE 90; RESP 18; TEMP 36.3; O2SAT 98; BMI 30.2
--- NOTE | 2024-08-26 10:43 | ACNOTE_ITS ---
Vital Signs 08/26/24 10:43 Height 1.93 m Height Method Stated Weight 112.661 kg Weight Measurement Method Standing Scale BMI 30.2 BP 163/92 H Blood Pressure Source Automatic Cuff Blood Pressure Location Left Upper Arm Position Sitting Respiration 18 Pulse 90 Pulse Source Monitor Temp 97.3 F Temp Source Oral Pulse Oximetry (%) 98 Oxygen Delivery Method Room Air Allergies/Meds Allergies & Medications Allergies vancomycin Allergy (Severe, Verified 08/26/24 10:44) Swelling of Lip/Tongue/Throat Medication Reconciliation gabapentin 300 mg capsule 300 mg PO TID 09/27/17 [History Confirmed 08/26/24] magnesium 200 mg tablet 200 mg PO QDAY #10 tabs 01/06/24 [Rx Confirmed 08/26/24] acetaminophen 325 mg tablet 650 mg (2 x 325 mg) PO Q6H PRN Pain Scale 1-3 (Mild #14 tabs 03/12/24 [Rx Confirmed 08/26/24] aspirin 81 mg tablet,delayed release 81 mg PO QDAY #30 tabs 03/12/24 [Rx Confirmed 08/26/24] multivitamin with folic acid 400 mcg tablet (Tab-A-John) 1 tab PO QDAY #30 tabs 03/12/24 [Rx Confirmed 08/26/24] docusate sodium 100 mg capsule (Colace) 100 mg PO BID constipation #60 caps 04/01/24 [Rx Confirmed 08/26/24] blood sugar diagnostic (Accu-Chek Guide test strips) #100 ea 04/15/24 [Rx Confirmed 08/26/24] blood-glucose meter (Accu-Chek Guide Glucose Meter) #1 ea 04/15/24 [Rx Confirmed 08/26/24] lancets (Accu-Chek Softclix Lancets) #100 ea 06/03/24 [Rx Confirmed 08/26/24] blood-glucose meter,continuous (FreeStyle [place] 3 [place]) #1 ea 06/17/24 [Rx Confirmed 08/26/24] blood-glucose sensor (FreeStyle [place]ka 3 Sensor device) #2 ea 06/17/24 [Rx Confirmed 08/26/24] lactulose 20 gram/30 mL oral solution 30 ml PO EVERYOTHERDAY PRN constipation 5 days #1,200 mL 06/17/24 [Rx Confirmed 08/26/24] polyethylene glycol 3350 17 gram/dose oral powder (Miralax) 4 g PO QDAY constipation #238 grams 06/17/24 [Rx Confirmed 08/26/24] aspirin 81 mg tablet,delayed release (Adult Aspirin Regimen) 81 mg PO QDAY 30 days #30 tabs 07/29/24 [Rx Confirmed 08/26/24] carvedilol 25 mg tablet (Coreg) 25 mg PO BID #60 tabs 07/29/24 [Rx Confirmed 08/26/24] dapagliflozin propanediol 10 mg tablet (Farxiga) 10 mg PO QDAY Diabetes, HFpEF #30 tabs 07/29/24 [Rx Confirmed 08/26/24] insulin glargine 100 unit/mL (3 mL) subcutaneous pen 45 unit (0.45 mL) subcut QAM #15 mL 07/29/24 [Rx Confirmed 08/26/24] linaclotide 72 mcg capsule (Linzess) 72 mcg PO QDAY 30 days #30 caps 07/29/24 [Rx Confirmed 08/26/24] lisinopril 40 mg tablet 40 mg PO QDAY #30 tabs 07/29/24 [Rx Confirmed 08/26/24] metformin 500 mg tablet 500 mg PO BIDWMEAL #60 tabs 07/29/24 [Rx Confirmed 08/26/24] semaglutide 0.25 mg or 0.5 mg (2 mg/3 mL) subcutaneous pen injector (Ozempic) 0.5 mg (0.736 mL) subcut QWEEK #3 mL 07/29/24 [Rx Confirmed 08/26/24] spironolactone 25 mg tablet 25 mg PO QDAY HTN #30 tabs 07/29/24 [Rx Confirmed 08/26/24] gabapentin 300 mg capsule 300 mg PO TID #90 caps 08/26/24 [Rx] insulin aspart U-100 100 unit/mL (3 mL) subcutaneous pen 5 unit (0.05 mL) subcut TID 30 days #15 mL 08/26/24 [Rx] lactulose 10 gram/15 mL oral solution 20 g (30 mL) PO BID 30 days #1,800 mL 08/26/24 [Rx] naproxen 250 mg tablet 250 mg PO TIDWMEAL PRN pain #90 tabs 08/26/24 [Rx] MA Intake Visit Data Collection New Patient or Established: Established Patient (seen at [facility] within 3 years) Seen by Clinical Staff ONLY (RN/MA): No Pain Present Currently: Yes Pain Location: Foot (RIGHT) Pain scale:: 8 Pain Scale Used: [place]/Numerical PCP or OBGYN visit in last 3 months: No Hx Now: No Do You Feel Safe at Home: Yes Smoking Status Smoking Status: Former smoker Immunization / Flu Flu Vaccine in the Last 12 Months: Yes Flu Vaccine Exclusion Criteria: No Exclusion Criteria Past Medical History Past Medical History NEUROLOGIC: Positive Neurological Disorders and Head Trauma CARDIAC: Positive Peripheral Vascular Disease, Hypercholesterolemia and Hypertension; Negative Cardiac Disorders or Congestive Heart Failure RESPIRATORY: Negative Chronic Obstructive Pulmonary Disease (COPD) or Asthma GASTROINTESTINAL: Negative Gastrointestinal Bleed, Ulcer or Hemorrhoids GENITOURINARY: Negative Renal Disease MUSCULOSKELETAL: Positive Osteomyelitis; Negative Arthritis ENT: Positive Head Trauma ENDOCRINE: Positive Endocrine Disorders and Diabetes Mellitus Type 2; Negative Diabetes Mellitus Type 1 HEMATOLOGIC: Negative Blood Disorders or Sickle Cell Disease PSYCHO/SOCIAL: Positive Anxiety OTHER HISTORY: Positive Falls and MRSA; Negative Blood Transfusions or Anesthesia Reactions Family History FAMILY HISTORY: Positive Family Cancer; Negative Family Psychiatric Problems, Family Respiratory Disorders, Family Cardiac Disorders, Family Gastrointestinal Problems or Family Anesthesia Reaction Surgical History SURGICAL: Positive Amputation; Negative Cardiac Surgery Social History SMOKING STATUS: Smoking status: Former smoker SECOND HAND EXPOSURE: second hand exposure: No (5 cig/day x10 yrs- QUIT 15 yrs ago) ALCOHOL: Alcohol Intake: Never HOUSING: Housing: House LIVES WITH: Lives With: Family Patient Portal Questionaires PHQ-9 PHQ-2 Over the last 2 weeks, how often have you been bothered by any of the following problems? 1. Little interest or pleasure in doing things: not at all 2. Feeling down, depressed, or hopeless: not at all Total score: 0 PHQ-9 3. Trouble falling or staying asleep, or sleeping too much: Not at all 4. Feeling tired or having little energy: Not at all 5. Poor appetite or overeating: Not at all 6. Feeling bad about yourself - or that you are a failure or have let yourself or your family down: Not at all 7. Trouble concentrating on things, such as reading the newspaper or watching television: Not at all 8. Moving or speaking so slowly that other people could have noticed? - Or the opposite - being so fidgety or restless that you have been moving around a lot more than usual: not at all 9. Thoughts that you would be better off or of hurting yourself in some way: Not at all Total score: 0 Source: Developed by Drs. Nolan Carranza, Zaria Bean, Mo Crabtree and colleagues, with an educational chino from [employer]. Depression screen completed yes Social History Living Situation History Housing: House Housing Other:: Pt lives with sister Tobacco History Smoking Status: Former smoker Second Hand Smoke Exposure: No (5 cig/day x10 yrs- QUIT 15 yrs ago) Alcohol History Alcohol Intake: Never Domestic Abuse History Do You Feel Safe at Home: Yes Review of Systems Report any current symptoms Only answer those that you have currently: Past Medical History Past Medical History Have you ever been diagnosed with any of the following: Neurological Problems Head Trauma: Yes Cardiology Problems Peripheral Vascular Disease: Yes Hypercholesterolemia: Yes Congestive Heart Failure: No Hypertension: Yes Respiratory Problems Chronic Obstructive Pulmonary Disease (COPD): No Asthma: No Stomache/Intestinal Problems Gastrointestinal Bleed: No Ulcer: No Hemorrhoids: No Genital/Urinary Problems Renal Disease: No Musculoskeletal Problems Arthritis: No Osteomyelitis: Yes Endocrine Problems Diabetes Mellitus Type 1: No Diabetes Mellitus Type 2: Yes Blood Problems Sickle Cell Disease: No Psychologic Problems Anxiety: Yes Other Problems Falls: Yes Blood Transfusions: No Anesthesia Reactions: No MRSA: Yes History of Present Illness HPI Narrative 04/01/2024 54-year-old male past medical history of chronic osteomyelitis of both R and L lower extremity (h/x of previous amputations) type 2 diabetes on insulin, hypertension, diabetic neuropathy, coronary artery disease who comes to the clinic today for a follow up from the hospital in which he was admitted for osteomyelitis of the R foot, s/p debridement of both feet, and was discharged on IV rocephin and PO doxycycline to be continued until 05/06. Pt is complaining of abd pain and foot pain. Says he has not been sleeping well either, and attributes it to his abdominal pain. Says he sleeps at 9/10 pm everynight, but wakes up around 2am bc of abdominal pain, and then will wake back up at 5am. Denies having more than one caffeinated beverage throughout the day which is a coffee in the morning, and does not take naps throughout the day. He also says that he has not had a bowel movement since he was discharged from the hospital on 03/29. Endorses some loss of appetite too but says its due to his consti pation. Also states that he has not taken his doxycycline as he was not able to pick it up from the pharmacy. He has also not been able to slat pickler his other medicines from the pharmacy either. Also endorses some exertional dyspnea but denies swelling in his legs. Has not gotten a colonscopy before, no other complaints at this time. 04/15/2024: 54-year-old male who comes into the office today for follow-up of osteomyelitis, blood pressure, insomnia, and constipation. Patient reports that he has not had a bowel movement since Friday. Says he has been taking his laxatives as prescribed. Says that him not having bowel movements in addition to his leg pain and has not allowed him to sleep. Has been taking all his medicines including his blood pressure medicines as prescribed. Has been getting home health for his antibiotics for osteomyelitis. Has been trying to adjust his diet. Says that his sugars 220s at home. Says that he needs a new glucometer as he has lost his. No other complaints at this time. 05/13/2024: 54 y/o male who comes into the office today for follow-up of osteomyelitis, hypertension and was recently discharged from the ER on 05/12/2024 for evaluation of osteomyelitis. Patient reports that he went to the ER yesterday because he noticed a couple new ulcers on his right lower extremity, the same leg that he had operated on. He denies having any fever or chills, but did say that when he was in the ER his blood sugar was 480. He was worked up, x-ray showed chronic osteomyelitis and was told to follow-up with wound care upon discharge. When he came to the office, blood sugar was checked and he had blood sugar of 360, said he ate last night but has not eaten anything this morning however he had a diet Coke this morning. He is also inquiring about where he is at for his GI referral, is requesting some naproxen as he has said that helps him with his pain. Says he has bowel movements every 3 days or so, last bowel movement was on Friday. No other complaints at this time 06/03/2024 54-year-old male with past medical history of osteomyelitis of right and left foot s/p amputation, IDDM, hypertension, diabetic nephropathy, and CAD came in to the [facility] today for follow-up. On past visits patient was still complaining of constipation and his blood pressure was still elevated. Today his blood sugar was in the 270s he states that he has been around there at home as well. His blood pressure was also elevated today at 164/84. Patient states she has been doing quite well and that his wound has been improving as he has been going to wound care weekly. Patient states that he has had bowel movements, but he describes them as being hard and small like pellets. Has not seen a GI specialist yet as he has not gotten called by their offices, will follow up on referral. Given patient's uncontrolled hypertension and diabetes we will add farxiga and spironolactone to his regimen to improve blood sugars and blood pressure. Patient has no other complaints at this time.Will have patient follow-up in 1 month with repeat A1c, CMP, and microalbumin. 06/17/2024: Patient examined at bedside today. Seen Dr. Cruz on last visit on June 03, 2024. Patient was post to get lab work done including A1c CMP and microalbumin, however this is appointment. Says that he has been doing good, however he says that his sugars have been uncontrolled. He noticed that they are sometimes in the 180s, however he was at [facility] recently and had a hypoglycemic episode in which he was diaphoretic and felt weak. He was given candy and juice and it resolved. He says that his sugars are typically around 180s to 200s. He said he did not eat this morning but did not check his sugar. Fingerstick showed sugar of 317. He also says that he has been having good bowel movements, but needs refills on his lactulose and MiraLAX, last bowel movement was 2 days ago. He also says that he has been taking his medicines as prescribed including his Farxiga and spironolactone. He was also complaining of some generalized fatigue and was inquiring about testosterone, but says that he is not sexually active. He says that he used to get testosterone shots while he was in senior living if his levels were below 400. No other complaints at this time 07/29/2024: Patient examined at bedside today. Was seen in mid June by Dr. Hutchins. Patient was able to go get labs including A1c CMP CBC. Patient's A1c was 10.7, creatinine 0.8, fasting glucose 220. Patient reports that he takes his glucose checks every day and it is around the 200s. He does not have CGM as it was not approved. He has been taking all his medicines as prescribed. He does not take his blood pressure at home, however he was instructed to take his blood pressure at home and record the measurements including sugars and was given a paper to do so. He says that his bowel movements have been good every 2 to 3 days with Linzess and has not been using any other medicines for this. He says he feels good and is denying any chest pain, shortness of breath or headache. He has been continuing to be seen by wound care and has been getting debridements. He says that he noticed that he has lost about 20 pounds and has been taking his Ozempic as prescribed. He says he is out of his medicines and needs refills on them. He has no other complaints at this time. 08/26/2024: The patient presented for follow up and refill on his medicines. He reported having his rt foot stump sores and had 2 recent blisters that ruptured. He denied any foul smelling discharge from the site. He has been taking care by dressing everyday and follow up with wound care every week. He denied any headache, fever or chills, nausea or vomiting, chest pain, SOB, or abdominal pain. His medications are helping with constipation. He was made aware that his medication refills has been there and he just needs to call pharmacy if he has his medications available or not, and if it is not there then make an appointment. Review of Systems Review of Systems Systems Reviewed: All systems reviewed, normal except as documented Objective/Exam Narrative Physical exam: General: AAOx3, NAD, appears to have lost some weight, however still obese HEENT: Moist mucous membranes, conjunctiva clear, EOMI, PERRLA, Cardiovascular: S1, S2, radial pulses +2 bilat, tachycardic Pulmonary: CTAB bilat no cough, no wheezing GI: No tenderness to light or deep palpitation, no guarding, rigidity, rebound tenderness or distension Extremities: Pt is wearing boots on rt foot, no pitting edema bilat Neuro: AAOx3, no focal motor or sensory deficits in the UE or LE bilat Psych: Good judgement, thought and behavior. 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 Patient was not able to get CGM due to insurance Was instructed to measure glucose levels with log and write them down Will also adjust Ozempic dose Microalbuminemia 220 Plan: ?Gabapentin 300 3 times daily ?Lantus 45 units, go up 1 unit every night until fasting appears to be 150 ? NovoLog 5 units 3 times daily with meals ?Metformin 500 twice daily -Continue Farxiga 10mg qday, recommended to check morning BG and if BG is below 100 to decrease long acting insulin by 1 unit at a time to avoid hypoglycemia ?Continue Ozempic 0.5 mg -Checked on medication refill (2) Hypertension: Status: Chronic Qualifiers: Hypertension type: primary hypertension Qualified Code(s): I10 - Essential (primary) hypertension Assessment & Plan: Blood pressure controlled today Will continue with current management Plan: ?Coreg 25 twice daily -Lisinopril 40mg qday -Continue spironolactone 25mg qday ?Pending cardiology referral -Checked medication refill (3) Osteomyelitis of lower extremity: Status: Acute Assessment & Plan: Rt foot develoved 2 blisters that has been healing Plan: -Continue with wound care -Increased thebdose of Naproxen to 250mg TID as needed for pain (4) Constipation: Status: Chronic Qualifiers: Constipation type: unspecified constipation type Qualified Code(s): K59.00 - Constipation, unspecified Assessment & Plan: Bowel movements are improving, every 1-2 days Patient to make appointment with GI Plan: -Continue with Linzess 72 mcg daily -Continue with lactulose and docusate as needed -Pending GI specialist appt and colonoscopy (5) Congestive heart failure with left ventricular diastolic dysfunction: Status: Acute Qualifiers: Congestive heart failure chronicity: chronic Qualified Code(s): I50.32 - Chronic diastolic (congestive) heart failure Assessment & Plan: Echo shows grade 1 diastolic dysfunction, preserved ejection fraction around 60% Does complain of injection dyspnea Does not complain of pitting edema Will continue GDMT therapy Plan: -Coreg 25 BID -Spironolactone 25mg qday -Farxiga 10mg qday Plan The case was discussed with my attending physician MD Danielito Silver MD PGY2 Office Procedures [facility] Level of Care Nursing/Assessment Patient Status: Established Patient Nursing Assessment/Reassessment: Medication Reconciliation, Update PMH in EMR and Vital Signs Coordination of Care: Complex Care and Chronic Disease 1-5, Consent,records obtained, informed consent, Education Simp Pt/Fam, Lab and Imaging orders and Staff clarify orders Established Patient Charge Established Patient Point Assignment: 100 Established Patient Point Charge: EP Level 3 (80-115)
== END 2024-08-26 13:43 | disposition home or self-care (01) ==
PROVIDERS: PCP Student in an Organized Health Care Education/Training Program; Referring Provider Student in an Organized Health Care Education/Training Program; Supervising Provider Internal Medicine; Visit Provider Student in an Organized Health Care Education/Training Program
DX: E11.618 Type 2 diabetes mellitus with other diabetic arthropathy (principal); Z79.4 Long term (current) use of insulin; Z79.84 Long term (current) use of oral hypoglycemic drugs; Z79.85 Long-term (current) use of injectable non-insulin antidiabetic drugs; Z76.0 Encounter for issue of repeat prescription; M86.8X7 Other osteomyelitis, ankle and foot; K59.00 Constipation, unspecified; I11.0 Hypertensive heart disease with heart failure; I50.30 Unspecified diastolic (congestive) heart failure
CPT/HCPCS: 99213; G0463

== ENCOUNTER → 2024-08-30 | Outpatient (CLI) | payer MEDICAID, SELFPAY | END | disposition home or self-care (01) | LOC: SWHD 14:11 | PROVIDERS: PCP Family Medicine; Referring Provider Family Medicine; Visit Provider Student in an Organized Health Care Education/Training Program | DX: E11.621 Type 2 diabetes mellitus with foot ulcer (principal); L97.415 Non-pressure chronic ulcer of right heel and midfoot with muscle involvement without evidence of necrosis; L97.522 Non-pressure chronic ulcer of other part of left foot with fat layer exposed; S91.104A Unspecified open wound of right lesser toe(s) without damage to nail, initial encounter; X58.XXXA Exposure to other specified factors, initial encounter; I10 Essential (primary) hypertension; E11.40 Type 2 diabetes mellitus with diabetic neuropathy, unspecified; Z79.4 Long term (current) use of insulin; Z79.84 Long term (current) use of oral hypoglycemic drugs | CPT/HCPCS: 97597; 11042; A9270 ==

== ENCOUNTER → 2024-08-31 | Outpatient (CLI) | payer MEDICAID, SELFPAY ==
--- NOTE | 2024-08-31 | XR_ITS ---
Examination: CTA abdominal aorta iliofemoral runoff. 2-D sagittal coronal reconstructions. 3-D reconstructions, vascular August 31, 2024 11:35 AM INDICATIONS: Diagnosis atherosclerosis of [place] arteries right leg, nonhealing ulcers right leg history right foot amputation August 2023 left foot fifth digit amputation August 2023 Technique: Multiple CTA images of the abdominal aorta iliofemoral runoff arterial vessels, 2.0 mm slice thickness, post intravenous administration 130 cc [id number] 2-D sagittal coronal reconstructions. 3-D reconstructions, vascular 3-D postprocessing, including vascular maximum intensity projection images, 3-D volume rendering Low dose protocols were performed. One or more of the following dose reduction techniques were used; automated exposure control, adjustment of the mA and/or KV according to patient size, use of iterative reconstruction technique. Findings: No focal liver lesions Cholelithiasis, negative for cholecystitis Spleen not enlarged No pancreatic mass Moderate renal parenchymal scar formation No bowel obstruction Normal appendix Colonic diverticulosis Urinary bladder intact No abdominal aortic aneurysmal dilatation No significant stenoses celiac superior mesenteric or renal arteries Common iliac and external iliac common femoral arteries demonstrate no significant stenoses 70% short segment stenosis distal right superficial femoral artery axial image 463 Popliteal artery anterior posterior right tibial arteries fill to the ankle 80% short segment stenosis distal left superficial femoral artery axial image 475 Left popliteal anterior posterior tibial arteries do fill to the ankle as well as dorsalis pedis artery IMPRESSION: Significant bilateral distal superficial femoral artery short segment stenoses
== END | disposition home or self-care (01) ==
PROVIDERS: Referring Provider Surgery Vascular Surgery; Visit Provider Surgery Vascular Surgery
DX: I70.203 Unspecified atherosclerosis of native arteries of extremities, bilateral legs (principal)
CPT/HCPCS: 75635; A4649; Q9967

== ENCOUNTER → 2024-09-06 | Outpatient (CLI) | payer MEDICAID, SELFPAY | END | disposition home or self-care (01) | LOC: SWHD 13:46 | PROVIDERS: PCP Family Medicine; Referring Provider Family Medicine; Visit Provider Student in an Organized Health Care Education/Training Program | DX: E11.621 Type 2 diabetes mellitus with foot ulcer (principal); L97.412 Non-pressure chronic ulcer of right heel and midfoot with fat layer exposed; L97.522 Non-pressure chronic ulcer of other part of left foot with fat layer exposed; S91.104A Unspecified open wound of right lesser toe(s) without damage to nail, initial encounter; X58.XXXA Exposure to other specified factors, initial encounter; I10 Essential (primary) hypertension; E11.40 Type 2 diabetes mellitus with diabetic neuropathy, unspecified; Z79.4 Long term (current) use of insulin; Z79.84 Long term (current) use of oral hypoglycemic drugs | CPT/HCPCS: 97597; A9270 ==

== ENCOUNTER → 2024-09-13 | Outpatient (CLI) | payer MEDICAID, SELFPAY | END | disposition home or self-care (01) | LOC: SWHD 13:50 | PROVIDERS: PCP Family Medicine; Referring Provider Family Medicine; Visit Provider Student in an Organized Health Care Education/Training Program | DX: E11.621 Type 2 diabetes mellitus with foot ulcer (principal); L97.412 Non-pressure chronic ulcer of right heel and midfoot with fat layer exposed; L97.522 Non-pressure chronic ulcer of other part of left foot with fat layer exposed; X58.XXXA Exposure to other specified factors, initial encounter; I10 Essential (primary) hypertension; E11.40 Type 2 diabetes mellitus with diabetic neuropathy, unspecified; Z79.4 Long term (current) use of insulin; Z79.84 Long term (current) use of oral hypoglycemic drugs; R60.0 Localized edema | CPT/HCPCS: 97597; 10060; A9270 ==

== ENCOUNTER 2025-01-11 13:39 | Outpatient (AMB) | payer MEDICAID, SELFPAY ==
[2025-01-11 14:01] VITALS: BP 145/72; PULSE 97; RESP 19; TEMP 36.6; O2SAT 95; BMI 28.5
--- NOTE | 2025-01-11 14:01 | PD.RESCLINIC ---
Vital Signs 01/11/25 14:01 Height 1.93 m Height Method Stated Weight 106.594 kg Weight Measurement Method Stated by Patient BMI 28.5 BP 145/72 H Blood Pressure Source Automatic Cuff Blood Pressure Location Right Upper Arm Position Sitting Respiration 19 Pulse 97 Pulse Source Monitor Temp 97.9 F Temp Source Temporal Artery Scan Pulse Oximetry (%) 95 Oxygen Delivery Method Room Air Allergies/Meds Allergies & Medications Allergies vancomycin Allergy (Severe, Verified 08/26/24 10:44) Swelling of Lip/Tongue/Throat MA Intake Visit Data Collection New Patient or Established: Established Patient (seen at [facility] within 3 years) Seen by Clinical Staff ONLY (RN/MA): No Reason for Visit:: PT NEEDS MEDICATION REFILLS AND FOLLOW UP Pain Present Currently: No PCP or OBGYN visit in last 3 months: No Do You Feel Safe at Home: Yes Authorities Contacted: N/A Smoking Status Smoking Status: Former smoker Immunization / Flu Flu Vaccine in the Last 12 Months: Yes Flu Vaccine Exclusion Criteria: No Exclusion Criteria Past Medical History Past Medical History NEUROLOGIC: Positive Neurological Disorders and Head Trauma CARDIAC: Positive Peripheral Vascular Disease, Hypercholesterolemia and Hypertension; Negative Cardiac Disorders or Congestive Heart Failure RESPIRATORY: Negative Chronic Obstructive Pulmonary Disease (COPD) or Asthma GASTROINTESTINAL: Negative Gastrointestinal Bleed, Ulcer or Hemorrhoids GENITOURINARY: Negative Renal Disease MUSCULOSKELETAL: Positive Osteomyelitis; Negative Arthritis ENT: Positive Head Trauma ENDOCRINE: Positive Endocrine Disorders and Diabetes Mellitus Type 2; Negative Diabetes Mellitus Type 1 HEMATOLOGIC: Negative Blood Disorders or Sickle Cell Disease PSYCHO/SOCIAL: Positive Anxiety OTHER HISTORY: Positive Falls and MRSA; Negative Blood Transfusions or Anesthesia Reactions Family History FAMILY HISTORY: Positive Family Cancer; Negative Family Psychiatric Problems, Family Respiratory Disorders, Family Cardiac Disorders, Family Gastrointestinal Problems or Family Anesthesia Reaction Surgical History SURGICAL: Positive Amputation; Negative Cardiac Surgery Social History SMOKING STATUS: Smoking status: Former smoker SECOND HAND EXPOSURE: second hand exposure: No (5 cig/day x10 yrs- QUIT 15 yrs ago) ALCOHOL: Alcohol Intake: Never HOUSING: Housing: House LIVES WITH: Lives With: Family Patient Portal Questionaires PHQ-9 PHQ-2 Over the last 2 weeks, how often have you been bothered by any of the following problems? 1. Little interest or pleasure in doing things: not at all PHQ-9 8. Moving or speaking so slowly that other people could have noticed? - Or the opposite - being so fidgety or restless that you have been moving around a lot more than usual: not at all Source: Developed by Drs. Nolan Carranza, Zaria Bean, Mo Crabtree and colleagues, with an educational chino from [employer]. Social History Living Situation History Housing: House Housing Other:: Pt lives with sister Tobacco History Smoking Status: Former smoker Second Hand Smoke Exposure: No (5 cig/day x10 yrs- QUIT 15 yrs ago) Alcohol History Alcohol Intake: Never Domestic Abuse History Do You Feel Safe at Home: Yes Review of Systems Report any current symptoms Only answer those that you have currently: Past Medical History Past Medical History Have you ever been diagnosed with any of the following: Neurological Problems Head Trauma: Yes Cardiology Problems Peripheral Vascular Disease: Yes Hypercholesterolemia: Yes Congestive Heart Failure: No Hypertension: Yes Respiratory Problems Chronic Obstructive Pulmonary Disease (COPD): No Asthma: No Stomache/Intestinal Problems Gastrointestinal Bleed: No Ulcer: No Hemorrhoids: No Genital/Urinary Problems Renal Disease: No Musculoskeletal Problems Arthritis: No Osteomyelitis: Yes Endocrine Problems Diabetes Mellitus Type 1: No Diabetes Mellitus Type 2: Yes Blood Problems Sickle Cell Disease: No Psychologic Problems Anxiety: Yes Other Problems Falls: Yes Blood Transfusions: No Anesthesia Reactions: No MRSA: Yes History of Present Illness HPI Narrative 54-year-old male past medical history of chronic osteomyelitis of both R and L lower extremity (h/x of previous amputations) type 2 diabetes on insulin, hypertension, diabetic neuropathy, coronary artery disease who comes to the clinic today for a follow up from the hospital in which he was admitted for osteomyelitis of the R foot, s/p debridement of both feet, and was discharged on IV rocephin and PO doxycycline to be continued until 05/06. Pt is complaining of abd pain and foot pain. Says he has not been sleeping well either, and attributes it to his abdominal pain. Says he sleeps at 9/10 pm everynight, but wakes up around 2am bc of abdominal pain, and then will wake back up at 5am. Denies having more than one caffeinated beverage throughout the day which is a coffee in the morning, and does not take naps throughout the day. He also says that he has not had a bowel movement since he was discharged from the hospital on 03/29. Endorses some loss of appetite too but says its due to his constipation. Also states that he has not taken his doxycycline as he was not able to pick it up from the pharmacy. He has also not been able to pickle sorter his other medicines from the pharmacy either. Also endorses some exertional dyspnea but denies swelling in his legs. Has not gotten a colonscopy before, no other complaints at this time. 08/26/2024: The patient presented for follow up and refill on his medicines. He reported having his rt foot stump sores and had 2 recent blisters that ruptured. He denied any foul smelling discharge from the site. He has been taking care by dressing everyday and follow up with wound care every week. He denied any headache, fever or chills, nausea or vomiting, chest pain, SOB, or abdominal pain. His medications are helping with constipation. He was made aware that his medication refills has been there and he just needs to call pharmacy if he has his medications available or not, and if it is not there then make an appointment. 01/11/2025: The patient has a history of poorly controlled diabetes mellitus with complications, diabetic foot and osteomyelitis, coronary artery disease and CHF, HTN, peripheral arterial disease, was seen in clinic for follow-up, patient was recently incarcerated and was just released from facility last week. The patient has history of poorly controlled diabetes mellitus leading to diabetic foot and osteomyelitis, currently wounds are well-healed. Already finished antibiotic treatment. The patient is here to get refills on his medication, he has not taken any insulin for the past 3 days since he was released. Medications were refilled, and patient was advised strict compliance with medications. The patient will need to see cardiology for evaluation of coronary artery disease and gastroenterology for screening colonoscopy as well as podiatry with diabetes mellitus, referrals were ordered. The patient is also complaining of constipation off-and-on, denied hematochezia or melena, recommended patient to follow-up with gastroenterology and get a colonoscopy. Will follow-up patient in a later date with labs ordered renal function panel. Review of Systems Review of Systems Narrative Review of Systems: General: Denies fevers or chills, endorsed weight loss HEENT: Denies congestion or sore throat Heart: Denies chest pain or palpitations Lungs: Denies shortness of breath or cough Abdomen: Endorses constipation, denied bright red blood per rectum or melena Genitourinary: Denies frequency, urgency, dysuria, or hematuria Musculoskeletal: Denies joint pain, denies muscular pain Neurology: Denies any numbness, tingling Review of systems otherwise negative except what is mentioned above. Objective/Exam Narrative Physical exam: General: AAOx3, NAD, HEENT: Moist mucous membranes, conjunctiva clear, EOMI, PERRLA, Cardiovascular: S1, S2, radial pulses +2 bilat, tachycardic Pulmonary: CTAB bilat no cough, no wheezing GI: No tenderness to light or deep palpitation, no guarding, rigidity, rebound tenderness or distension Extremities: Pt is wearing boots on rt foot, no pitting edema bilat , patient is s/p TMA Neuro: AAOx3, no focal motor or sensory deficits in the UE or LE bilat Psych: Good judgement, thought and behavior. Cooperative Assessment & Plan Diagnosis / Problem List (1) Diabetes mellitus: Status: Acute Qualifiers: Diabetes mellitus complication detail: with other arthropathy Diabetes mellitus complication status: with diabetic arthropathy Diabetes mellitus medical terminologist insulin use: with medical terminologist use Diabetes mellitus type: type 2 Qualified Code(s): E11.618 - Type 2 diabetes mellitus with other diabetic arthropathy; Z79.4 - intermediate (current) use of insulin Assessment & Plan: Poorly controlled diabetes mellitus, last A1c of 9.0 on August 25 2024, with diabetic foot infection leading to osteomyelitis, which was treated with IV and p.o. antibiotics. Patient was recently incarcerated and released from facility few days ago, has not taken any insulin for the past 3 days requesting refills. Patient unable to get CGM. Ordered DME supplies for fingerstick glucose monitoring, gave patient paper chart for documenting fingerstick glucose levels. Patient is requesting basal bolus insulin regimen, but given patient's understanding of his disease, compliance would be an issue. After discussion with patient we agreed to increase basal insulin units and twice daily dosing. Plan: ? Insulin Lantus 30 units twice daily ? Continue metformin 500 twice daily ? Continue Farxiga 10mg qday ? Continue Ozempic 0.5 mg q. weekly ? Counseled regarding dietary modification and lifestyle changes (2) Neuropathy in diabetes: Status: Acute Plan: ? Gabapentin 300 mg 3 times daily (3) Hypertension: Status: Chronic Qualifiers: Hypertension type: primary hypertension Qualified Code(s): I10 - Essential (primary) hypertension Assessment & Plan: Noted blood pressure 145/72, despite not having access to his medications, will decrease antihypertensive, continue lisinopril only to help with renal protection in the setting of diabetes as well as hypertension. Plan: ? Lisinopril 40mg qday (4) Constipation: Status: Chronic Qualifiers: Constipation type: unspecified constipation type Qualified Code(s): K59.00 - Constipation, unspecified Assessment & Plan: Bowel movements are improving, every 1-2 days Patient to make appointment with GI Plan: -Continue with Linzess 72 mcg daily -Continue with lactulose and docusate as needed -Pending GI specialist appt and colonoscopy Plan The case was discussed with my attending physician Dr. Josef MD Orders: Orders CBC 01/11/25 Renal Function Panel 01/11/25 E11.618 - Type 2 diabetes mellitus with other diabetic arthropathy, Z79.4 - intermediate (current) use of insulin Referrals Podiatry E11.40 - Type 2 diabetes mellitus with diabetic neuropathy, unspecified Cardiology Gastroenterology Office Procedures [facility] Level of Care Nursing/Assessment Patient Status: Established Patient Nursing Assessment/Reassessment: BP Monitoring, Medication Reconciliation, Update PMH in EMR and Vital Signs Coordination of Care: Complex Care and Chronic Disease 1-5, Consent,records obtained, informed consent, Lab and Imaging orders and Results/Orders obtained Established Patient Charge Established Patient Point Assignment: 95 Established Patient Point Charge: EP Level 3 (80-115) Bedisde Glucose POC Ambulatory Location Ambulatory Dept Location: [facility] Glucose Result Bedside Glucose Monitorin Results Glucose Glucose 304 mg/dL Last Edit by Ofe Lino MA on 01/11/25 15:27
== END 2025-01-11 15:00 | disposition home or self-care (01) ==
LOC: HODAHC 13:39
PROVIDERS: PCP Student in an Organized Health Care Education/Training Program; Referring Provider Student in an Organized Health Care Education/Training Program; Supervising Provider Internal Medicine; Visit Provider Student in an Organized Health Care Education/Training Program
DX: E11.618 Type 2 diabetes mellitus with other diabetic arthropathy (principal); Z79.4 Long term (current) use of insulin; Z79.84 Long term (current) use of oral hypoglycemic drugs; Z79.85 Long-term (current) use of injectable non-insulin antidiabetic drugs; E11.40 Type 2 diabetes mellitus with diabetic neuropathy, unspecified; I10 Essential (primary) hypertension; K59.00 Constipation, unspecified
CPT/HCPCS: 82948; 99213; G0463

== ENCOUNTER 2025-01-25 14:09 | Outpatient (AMB) | payer MEDICAID, SELFPAY ==
[2025-01-25 14:41] VITALS: BP 168/83; PULSE 89; RESP 19; TEMP 36.6; O2SAT 96; BMI 28.8
--- NOTE | 2025-01-25 14:41 | ACNOTE_ITS ---
Vital Signs 01/25/25 14:41 Height 1.93 m Height Method Stated Weight 107.501 kg Weight Measurement Method Standing Scale BMI 28.8 BP 168/83 H Blood Pressure Source Automatic Cuff Blood Pressure Location Right Upper Arm Position Sitting Respiration 19 Pulse 89 Pulse Source Monitor Temp 97.8 F Temp Source Temporal Artery Scan Pulse Oximetry (%) 96 Oxygen Delivery Method Room Air Allergies/Meds Allergies & Medications Allergies vancomycin Allergy (Severe, Verified 08/26/24 10:44) Swelling of Lip/Tongue/Throat MA Intake Visit Data Collection New Patient or Established: Established Patient (seen at [facility] within 3 years) Seen by Clinical Staff ONLY (RN/MA): No Reason for Visit:: FOLLOW UP Pain Present Currently: No PCP or OBGYN visit in last 3 months: Yes Date of Last PCP or OBGYN visit: 01/11/25 Do You Feel Safe at Home: Yes Authorities Contacted: N/A Smoking Status Smoking Status: Former smoker Immunization / Flu Flu Vaccine in the Last 12 Months: Yes Flu Vaccine Exclusion Criteria: Already Received Past Medical History Past Medical History NEUROLOGIC: Positive Neurological Disorders and Head Trauma CARDIAC: Positive Peripheral Vascular Disease, Hypercholesterolemia and Hypertension; Negative Cardiac Disorders or Congestive Heart Failure RESPIRATORY: Negative Chronic Obstructive Pulmonary Disease (COPD) or Asthma GASTROINTESTINAL: Negative Gastrointestinal Bleed, Ulcer or Hemorrhoids GENITOURINARY: Negative Renal Disease MUSCULOSKELETAL: Positive Osteomyelitis; Negative Arthritis ENT: Positive Head Trauma ENDOCRINE: Positive Endocrine Disorders and Diabetes Mellitus Type 2; Negative Diabetes Mellitus Type 1 HEMATOLOGIC: Negative Blood Disorders or Sickle Cell Disease PSYCHO/SOCIAL: Positive Anxiety OTHER HISTORY: Positive Falls and MRSA; Negative Blood Transfusions or Anesthesia Reactions Family History FAMILY HISTORY: Positive Family Cancer; Negative Family Psychiatric Problems, Family Respiratory Disorders, Family Cardiac Disorders, Family Gastrointestinal Problems or Family Anesthesia Reaction Surgical History SURGICAL: Positive Amputation; Negative Cardiac Surgery Social History SMOKING STATUS: Smoking status: Former smoker SECOND HAND EXPOSURE: second hand exposure: No (5 cig/day x10 yrs- QUIT 15 yrs ago) ALCOHOL: Alcohol Intake: Never HOUSING: Housing: House LIVES WITH: Lives With: Family Patient Portal Questionaires PHQ-9 PHQ-2 Over the last 2 weeks, how often have you been bothered by any of the following problems? 1. Little interest or pleasure in doing things: not at all PHQ-9 8. Moving or speaking so slowly that other people could have noticed? - Or the opposite - being so fidgety or restless that you have been moving around a lot more than usual: not at all Source: Developed by Drs. Nolan Carranza, Zaria Bean, Mo Crabtree and colleagues, with an educational chino from [employer]. Social History Living Situation History Housing: House Housing Other:: Pt lives with sister Tobacco History Smoking Status: Former smoker Second Hand Smoke Exposure: No (5 cig/day x10 yrs- QUIT 15 yrs ago) Alcohol History Alcohol Intake: Never Domestic Abuse History Do You Feel Safe at Home: Yes Review of Systems Report any current symptoms Only answer those that you have currently: Past Medical History Past Medical History Have you ever been diagnosed with any of the following: Neurological Problems Head Trauma: Yes Cardiology Problems Peripheral Vascular Disease: Yes Hypercholesterolemia: Yes Congestive Heart Failure: No Hypertension: Yes Respiratory Problems Chronic Obstructive Pulmonary Disease (COPD): No Asthma: No Stomache/Intestinal Problems Gastrointestinal Bleed: No Ulcer: No Hemorrhoids: No Genital/Urinary Problems Renal Disease: No Musculoskeletal Problems Arthritis: No Osteomyelitis: Yes Endocrine Problems Diabetes Mellitus Type 1: No Diabetes Mellitus Type 2: Yes Blood Problems Sickle Cell Disease: No Psychologic Problems Anxiety: Yes Other Problems Falls: Yes Blood Transfusions: No Anesthesia Reactions: No MRSA: Yes History of Present Illness HPI Narrative 54-year-old male past medical history of chronic osteomyelitis of both R and L lower extremity (h/x of previous amputations) type 2 diabetes on insulin, hypertension, diabetic neuropathy, coronary artery disease who comes to the clinic today for a follow up from the hospital in which he was admitted for osteomyelitis of the R foot, s/p debridement of both feet, and was discharged on IV rocephin and PO doxycycline to be continued until 05/06. Pt is complaining of abd pain and foot pain. Says he has not been sleeping well either, and attributes it to his abdominal pain. Says he sleeps at 9/10 pm everynight, but wakes up around 2am bc of abdominal pain, and then will wake back up at 5am. Denies having more than one caffeinated beverage throughout the day which is a coffee in the morning, and does not take naps throughout the day. He also says that he has not had a bowel movement since he was discharged from the hospital on 03/29. Endorses some loss of appetite too but says its due to his constipation. Also states that he has not taken his doxycycline as he was not able to pick it up from the pharmacy. He has also not been able to rock picker his other medicines from the pharmacy either. Also endorses some exertional dyspnea but denies swelling in his legs. Has not gotten a colonscopy before, no other complaints at this time. 08/26/2024: The patient presented for follow up and refill on his medicines. He reported having his rt foot stump sores and had 2 recent blisters that ruptured. He denied any foul smelling discharge from the site. He has been taking care by dressing everyday and follow up with wound care every week. He denied any headache, fever or chills, nausea or vomiting, chest pain, SOB, or abdominal pain. His medications are helping with constipation. He was made aware that his medication refills has been there and he just needs to call pharmacy if he has his medications available or not, and if it is not there then make an appointment. 01/11/2025: The patient has a history of poorly controlled diabetes mellitus with complications, diabetic foot and osteomyelitis, coronary artery disease and CHF, HTN, peripheral arterial disease, was seen in clinic for follow-up, patient was recently incarcerated and was just released from facility last week. The patient has history of poorly controlled diabetes mellitus leading to diabetic foot and osteomyelitis, currently wounds are well-healed. Already finished antibiotic treatment. The patient is here to get refills on his medication, he has not taken any insulin for the past 3 days since he was released. Medications were refilled, and patient was advised strict compliance with medications. The patient will need to see cardiology for evaluation of coronary artery disease and gastroenterology for screening colonoscopy as well as podiatry with diabetes mellitus, referrals were ordered. The patient is also complaining of constipation off-and-on, denied hematochezia or melena, recommended patient to follow-up with gastroenterology and get a colonoscopy. Will follow-up patient in a later date with labs ordered renal function panel. 01/25/2025 the patient is seen for follow-up, reported consistent pain in his lower extremities due to neuropathy. Was prescribed gabapentin during last vis it, reported that he likes to take naproxen/Alleive for pain. Patient was counseled regarding use of Tylenol for increased symptom control as taking aspirin and naproxen does increase the risk for GI bleed. Patient reported he has been taking it for many years without any complications. Will prescribe GI prophylaxis for patient. Counseled extensively regarding decreasing naproxen use, prescribed meloxicam selective Guillory 2 inhibitor for symptom relief. Patient did bring home fingerstick glucose monitoring chart, more than 80% of the readings within range. Labs were reviewed, A1c 6.7%, currently well-controlled insulin Lantus a.m. 28 units, increase insulin Lantus at dinnertime to 30 units. Objective/Exam Narrative Physical exam: General: AAOx3, NAD, HEENT: Moist mucous membranes, conjunctiva clear, EOMI, PERRLA, Cardiovascular: S1, S2, radial pulses +2 bilat, tachycardic Pulmonary: CTAB bilat no cough, no wheezing GI: No tenderness to light or deep palpitation, no guarding, rigidity, rebound tenderness or distension Extremities: Pt is wearing boots on rt foot, no pitting edema bilat , patient is s/p TMA Neuro: AAOx3, no focal motor or sensory deficits in the UE or LE bilat Psych: Good judgement, thought and behavior. Cooperative Assessment & Plan Diagnosis / Problem List (1) Diabetes mellitus: Status: Acute Qualifiers: Diabetes mellitus type: type 2 Diabetes mellitus penitentiary insulin use: with penitentiary use Diabetes mellitus complication status: with diabetic arthropathy Diabetes mellitus complication detail: with other arthropathy Qualified Code(s): E11.618 - Type 2 diabetes mellitus with other diabetic arthropathy; Z79.4 - alf (current) use of insulin Assessment & Plan: Poorly controlled diabetes mellitus, last A1c of 9.0 on August 25 2024, with diabetic foot infection leading to osteomyelitis, which was treated with IV and p.o. antibiotics. Patient was recently incarcerated and released from facility few days ago, has not taken any insulin for the past 3 days requesting refills. Patient unable to get CGM. Ordered DME supplies for fingerstick glucose monitoring, gave patient paper chart for documenting fingerstick glucose levels. Patient is requesting basal bolus insulin regimen, but given patient's understanding of his disease, compliance would be an issue. After discussion w ith patient we agreed to increase basal insulin units and twice daily dosing. 01/25/2025, A1c 6.7% Plan: ? Insulin Lantus 30 units in the morning and at night ? Continue metformin 500 twice daily ? Continue Farxiga 10mg qday ? Continue Ozempic 0.5 mg q. weekly ? Counseled regarding dietary modification and lifestyle changes (2) Neuropathy in diabetes: Status: Acute Assessment & Plan: Patient has history of amputation and neuropathy in the setting of poorly controlled diabetes mellitus, history of using Aleve/naproxen for symptom relief, gabapentin was added, still complaining of symptoms. Podiatry referral was ordered during last visit, pending appointment. Plan: ? Gabapentin 300 mg 3 times daily ? Meloxicam as needed for pain ? Famotidine once daily for GI prophylaxis. Counseled against using naproxen in addition to baby aspirin. (3) Hypertension: Status: Chronic Qualifiers: Hypertension type: primary hypertension Qualified Code(s): I10 - Essential (primary) hypertension Assessment & Plan: Noted blood pressure 145/72, despite not having access to his medications, will decrease antihypertensive, continue lisinopril only to help with renal protection in the setting of diabetes as well as hypertension. Plan: ? Lisinopril 40mg qday (4) Constipation: Status: Chronic Qualifiers: Constipation type: unspecified constipation type Qualified Code(s): K59.00 - Constipation, unspecified Assessment & Plan: Bowel movements are improving, every 1-2 days Patient to make appointment with GI Plan: -Continue with Linzess 72 mcg daily -Continue with lactulose and docusate as needed -Pending GI specialist appt and colonoscopy Plan The case was discussed with my attending physician Dr. Josef MD Quresh PGY3 Office Procedures [facility] Level of Care Nursing/Assessment Patient Status: Established Patient Nursing Assessment/Reassessment: Medication Reconciliation, Update PMH in EMR and Vital Signs Coordination of Care: Complex Care and Chronic Disease 1-5, Consent,records obtained, informed consent, Lab and Imaging orders and Results/Orders obtained Established Patient Charge Established Patient Point Assignment: 80 Established Patient Point Charge: Level 3 (80-115)
== END 2025-01-25 15:33 | disposition home or self-care (01) ==
LOC: HODAHC 14:09
PROVIDERS: PCP Student in an Organized Health Care Education/Training Program; Referring Provider Student in an Organized Health Care Education/Training Program; Supervising Provider Internal Medicine; Visit Provider Student in an Organized Health Care Education/Training Program
DX: E11.618 Type 2 diabetes mellitus with other diabetic arthropathy (principal); E11.40 Type 2 diabetes mellitus with diabetic neuropathy, unspecified; Z79.4 Long term (current) use of insulin; Z79.85 Long-term (current) use of injectable non-insulin antidiabetic drugs; I10 Essential (primary) hypertension; K59.00 Constipation, unspecified
CPT/HCPCS: 99213; G0463

== ENCOUNTER 2025-02-23 14:57 | Outpatient (AMB) | payer MEDICAID, SELFPAY ==
[2025-02-23 15:12] VITALS: BP 126/78; PULSE 125; RESP 19; TEMP 36.3; O2SAT 97; BMI 28.8
--- NOTE | 2025-02-23 15:12 | ACNOTE_ITS ---
<Statement entered by Shan Sims MD - 03/02/25 14:35> Attending note: I, Shan Sims MD, attest that I was physically present for the cotto portions of the service and evaluated the patient with the resident and I reviewed and discussed the case with the resident and agree with the resident's findings and plans of care as documented above. Vital Signs 02/23/25 15:12 Height 1.93 m Height Method Stated Weight 107.615 kg Weight Measurement Method Standing Scale BMI 28.8 BP 126/78 Blood Pressure Source Automatic Cuff Blood Pressure Location Right Upper Arm Position Sitting Respiration 19 Pulse 125 H Pulse Source Monitor Temp 97.4 F Temp Source Temporal Artery Scan Pulse Oximetry (%) 97 Oxygen Delivery Method Room Air Allergies/Meds Allergies & Medications Allergies vancomycin Allergy (Severe, Verified 08/26/24 10:44) Swelling of Lip/Tongue/Throat MA Intake Visit Data Collection New Patient or Established: Established Patient (seen at [facility] within 3 years) Seen by Clinical Staff ONLY (RN/MA): No Reason for Visit:: FOLLOW UP NEEDS REFILL ON MEDICATION Pain Present Currently: No PCP or OBGYN visit in last 3 months: Yes Date of Last PCP or OBGYN visit: 01/25/25 Do You Feel Safe at Home: Yes Authorities Contacted: N/A Smoking Status Smoking Status: Former smoker Immunization / Flu Flu Vaccine in the Last 12 Months: Yes Flu Vaccine Exclusion Criteria: No Exclusion Criteria Past Medical History Past Medical History NEUROLOGIC: Positive Neurological Disorders and Head Trauma CARDIAC: Positive Peripheral Vascular Disease, Hypercholesterolemia and Hypertension; Negative Cardiac Disorders or Congestive Heart Failure RESPIRATORY: Negative Chronic Obstructive Pulmonary Disease (COPD) or Asthma GASTROINTESTINAL: Negative Gastrointestinal Bleed, Ulcer or Hemorrhoids GENITOURINARY: Negative Renal Disease MUSCULOSKELETAL: Positive Osteomyelitis; Negative Arthritis ENT: Positive Head Trauma ENDOCRINE: Positive Endocrine Disorders and Diabetes Mellitus Type 2; Negative Diabetes Mellitus Type 1 HEMATOLOGIC: Negative Blood Disorders or Sickle Cell Disease PSYCHO/SOCIAL: Positive Anxiety OTHER HISTORY: Positive Falls and MRSA; Negative Blood Transfusions or Anesthesia Reactions Family History FAMILY HISTORY: Positive Family Cancer; Negative Family Psychiatric Problems, Family Respiratory Disorders, Family Cardiac Disorders, Family Gastrointestinal Problems or Family Anesthesia Reaction Surgical History SURGICAL: Positive Amputation; Negative Cardiac Surgery Social History SMOKING STATUS: Smoking status: Former smoker SECOND HAND EXPOSURE: second hand exposure: No (5 cig/day x10 yrs- QUIT 15 yrs ago) ALCOHOL: Alcohol Intake: Never HOUSING: Housing: House LIVES WITH: Lives With: Family Patient Portal Questionaires PHQ-9 PHQ-2 Over the last 2 weeks, how often have you been bothered by any of the following problems? 1. Little interest or pleasure in doing things: not at all PHQ-9 8. Moving or speaking so slowly that other people could have noticed? - Or the opposite - being so fidgety or restless that you have been moving around a lot more than usual: not at all Source: Developed by Drs. Nolan Carranza, Zaria Bean, Mo Crabtree and colleagues, with an educational chino from [employer]. Social History Living Situation History Housing: House Housing Other:: Pt lives with sister Tobacco History Smoking Status: Former smoker Second Hand Smoke Exposure: No (5 cig/day x10 yrs- QUIT 15 yrs ago) Alcohol History Alcohol Intake: Never Domestic Abuse History Do You Feel Safe at Home: Yes Review of Systems Report any current symptoms Only answer those that you have currently: Past Medical History Past Medical History Have you ever been diagnosed with any of the following: Neurological Problems Head Trauma: Yes Cardiology Problems Peripheral Vascular Disease: Yes Hypercholesterolemia: Yes Congestive Heart Failure: No Hypertension: Yes Respiratory Problems Chronic Obstructive Pulmonary Disease (COPD): No Asthma: No Stomache/Intestinal Problems Gastrointestinal Bleed: No Ulcer: No Hemorrhoids: No Genital/Urinary Problems Renal Disease: No Musculoskeletal Problems Arthritis: No Osteomyelitis: Yes Endocrine Problems Diabetes Mellitus Type 1: No Diabetes Mellitus Type 2: Yes Blood Problems Sickle Cell Disease: No Psychologic Problems Anxiety: Yes Other Problems Falls: Yes Blood Transfusions: No Anesthesia Reactions: No MRSA: Yes History of Present Illness HPI Narrative 54-year-old male past medical history of chronic osteomyelitis of both R and L lower extremity (h/x of previous amputations) type 2 diabetes on insulin, hypertension, diabetic neuropathy, coronary artery disease who comes to the clinic today for a follow up from the hospital in which he was admitted for osteomyelitis of the R foot, s/p debridement of both feet, and was discharged on IV rocephin and PO doxycycline to be continued until 05/06. Pt is complaining of abd pain and foot pain. Says he has not been sleeping well either, and attributes it to his abdominal pain. Says he sleeps at 9/10 pm everynight, but wakes up around 2am bc of abdominal pain, and then will wake back up at 5am. Denies having more than one caffeinated beverage throughout the day which is a coffee in the morning, and does not take naps throughout the day. He also says that he has not had a bowel movement since he was discharged from the hospital on 03/29. Endorses some loss of appetite too but says its due to his constipation. Also states that he has not taken his doxycycline as he was not able to pick it up from the pharmacy. 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 Also endorses some exertional dyspnea but denies swelling in his legs. Has not gotten a colonscopy before, no other complaints at this time. 08/26/2024: The patient presented for follow up and refill on his medicines. He reported having his rt foot stump sores and had 2 recent blisters that ruptured. He denied any foul smelling discharge from the site. He has been taking care by dressing everyday and follow up with wound care every week. He denied any headache, fever or chills, nausea or vomiting, chest pain, SOB, or abdominal pain. His medications are helping with constipation. He was made aware that his medication refills has been there and he just needs to call pharmacy if he has his medications available or not, and if it is not there then make an appointment. 01/11/2025: The patient has a history of poorly controlled diabetes mellitus with complications, diabetic foot and osteomyelitis, coronary artery disease and CHF, HTN, peripheral arterial disease, was seen in clinic for follow-up, patient was recently incarcerated and was just released from facility last week. The patient has history of poorly controlled diabetes mellitus leading to diabetic foot and osteomyelitis, currently wounds are well-healed. Already finished antibiotic treatment. The patient is here to get refills on his medication, he has not taken any insulin for the past 3 days since he was released. Medications were refilled, and patient was advised strict compliance with m edications. The patient will need to see cardiology for evaluation of coronary artery disease and gastroenterology for screening colonoscopy as well as podiatry with diabetes mellitus, referrals were ordered. The patient is also complaining of constipation off-and-on, denied hematochezia or melena, recommended patient to follow-up with gastroenterology and get a colonoscopy. Will follow-up patient in a later date with labs ordered renal function panel. 01/25/2025 the patient is seen for follow-up, reported consistent pain in his lower extremities due to neuropathy. Was prescribed gabapentin during last visit, reported that he likes to take naproxen/Alleive for pain. Patient was counseled regarding use of Tylenol for increased symptom control as taking aspirin and naproxen does increase the risk for GI bleed. Patient reported he has been taking it for many years without any complications. Will prescribe GI prophylaxis for patient. Counseled extensively regarding decreasing naproxen use, prescribed meloxicam selective Guillory 2 inhibitor for symptom relief. Patient did bring home fingerstick glucose monitoring chart, more than 80% of the readings within range. Labs were reviewed, A1c 6.7%, currently well-controlled insulin Lantus a.m. 28 units, increase insulin Lantus at dinnertime to 30 units. 02/23/2025: Patient seen for medication refill. Refilled Famotidine 40mg qd, pen needle and strip for DM, Changed meloxicam to Naproxen for neuropathic pain. Advised patient to stop naproxen if any signs of stomach pain. Review of Systems Review of Systems Narrative Review of Systems: All 12 systems assessed and the patient denies unless otherwise stated in HPI Objective/Exam Narrative Physical exam: General: No acute distress, well nourished Eye: PERRL, EOMI, normal conjunctiva, no scleral icterus HENT: Normocephalic, atraumatic, hearing intact to conversation at normal volume, moist oral mucosa Neck: Supple, non-tender, no JVD, no lymphadenopathy Lungs: Non-labored respirations, symmetric chest rise, Clear to auscultate bilaterally, No wheezing, rhonchi, crackles Heart: Peripheral pulses intact bilaterally, Regular Rate and Rhythm. Abdomen: Soft, non-tender, non-distended, no palpable masses Musculoskeletal: Normal range of motion and strength, No cyanosis or edema, No visible joint swelling Skin: Skin is warm, dry, no rashes or lesions. Psychiatric: Cooperative, appropriate mood and affect, Awake and alert, not agitated Neuro: Cranial nerves II-XII grossly intact. Sensations intact to light touch. Assessment & Plan Diagnosis / Problem List (1) Medication refill: Status: Acute Plan Patient seen for medication refill. Refilled Famotidine 40mg qd, pen needle and strip for DM, Changed meloxicam to Naproxen for neuropathic pain. Advised patient to stop naproxen if any signs of stomach pain. Office Procedures [facility] Level of Care Nursing/Assessment Patient Status: Established Patient Nursing Assessment/Reassessment: Medication Reconciliation, Update PMH in EMR and Vital Signs Coordination of Care: Complex Care and Chronic Disease 1-5, Consent,records obtained, informed consent, Lab and Imaging orders and Results/Orders obtained Established Patient Charge Established Patient Point Assignment: 80 Established Patient Point Charge: Level 3 (80-115)
== END 2025-02-23 15:31 | disposition home or self-care (01) ==
LOC: HODAHC 14:57
PROVIDERS: PCP Student in an Organized Health Care Education/Training Program; Referring Provider Student in an Organized Health Care Education/Training Program; Supervising Provider Internal Medicine
DX: Z76.0 Encounter for issue of repeat prescription (principal); E11.40 Type 2 diabetes mellitus with diabetic neuropathy, unspecified; Z79.4 Long term (current) use of insulin; I11.0 Hypertensive heart disease with heart failure; I50.9 Heart failure, unspecified; I25.10 Atherosclerotic heart disease of native coronary artery without angina pectoris; I73.9 Peripheral vascular disease, unspecified
CPT/HCPCS: 99213; G0463

== ENCOUNTER 2025-04-01 13:02 | Outpatient (AMB) | payer MEDICAID, SELFPAY ==
[2025-04-01 13:32] VITALS: BP 137/88; PULSE 99; RESP 18; TEMP 36; O2SAT 98
--- NOTE | 2025-04-01 13:32 | ACNOTE_ITS ---
Vital Signs 04/01/25 13:32 Height 1.93 m Height Method Stated Weight 112.037 kg Weight Measurement Method Standing Scale BMI 30.0 BP 137/88 H Blood Pressure Source Automatic Cuff Blood Pressure Location Right Upper Arm Position Sitting Respiration 18 Pulse 99 Pulse Source Monitor Temp 96.8 F Temp Source Temporal Artery Scan Pulse Oximetry (%) 98 Oxygen Delivery Method Room Air Allergies/Meds Allergies & Medications Allergies vancomycin Allergy (Severe, Verified 08/26/24 10:44) Swelling of Lip/Tongue/Throat MA Intake Visit Data Collection New Patient or Established: Established Patient (seen at [facility] within 3 years) Seen by Clinical Staff ONLY (RN/MA): No Reason for Visit:: FOLLOW UP Pain Present Currently: No PCP or OBGYN visit in last 3 months: Yes Date of Last PCP or OBGYN visit: 02/23/25 Do You Feel Safe at Home: Yes Authorities Contacted: N/A Smoking Status Smoking Status: Former smoker Immunization / Flu Flu Vaccine in the Last 12 Months: Yes Flu Vaccine Exclusion Criteria: Already Received Past Medical History Past Medical History NEUROLOGIC: Positive Neurological Disorders and Head Trauma CARDIAC: Positive Peripheral Vascular Disease, Hypercholesterolemia and Hypertension; Negative Cardiac Disorders or Congestive Heart Failure RESPIRATORY: Negative Chronic Obstructive Pulmonary Disease (COPD) or Asthma GASTROINTESTINAL: Negative Gastrointestinal Bleed, Ulcer or Hemorrhoids GENITOURINARY: Negative Renal Disease MUSCULOSKELETAL: Positive Osteomyelitis; Negative Arthritis ENT: Positive Head Trauma ENDOCRINE: Positive Endocrine Disorders and Diabetes Mellitus Type 2; Negative Diabetes Mellitus Type 1 HEMATOLOGIC: Negative Blood Disorders or Sickle Cell Disease PSYCHO/SOCIAL: Positive Anxiety OTHER HISTORY: Positive Falls and MRSA; Negative Blood Transfusions or Anesthesia Reactions Family History FAMILY HISTORY: Positive Family Cancer; Negative Family Psychiatric Problems, Family Respiratory Disorders, Family Cardiac Disorders, Family Gastrointestinal Problems or Family Anesthesia Reaction Surgical History SURGICAL: Positive Amputation; Negative Cardiac Surgery Social History SMOKING STATUS: Smoking status: Former smoker SECOND HAND EXPOSURE: second hand exposure: No (5 cig/day x10 yrs- QUIT 15 yrs ago) ALCOHOL: Alcohol Intake: Never HOUSING: Housing: House LIVES WITH: Lives With: Family Patient Portal Questionaires PHQ-9 PHQ-2 Over the last 2 weeks, how often have you been bothered by any of the following problems? 1. Little interest or pleasure in doing things: not at all PHQ-9 8. Moving or speaking so slowly that other people could have noticed? - Or the opposite - being so fidgety or restless that you have been moving around a lot more than usual: not at all Source: Developed by Drs. Nolan Carranza, Zaria Bean, Mo Crabtree and colleagues, with an educational chino from [employer]. Social History Living Situation History Housing: House Housing Other:: Pt lives with sister Tobacco History Smoking Status: Former smoker Second Hand Smoke Exposure: No (5 cig/day x10 yrs- QUIT 15 yrs ago) Alcohol History Alcohol Intake: Never Domestic Abuse History Do You Feel Safe at Home: Yes Review of Systems Report any current symptoms Only answer those that you have currently: Past Medical History Past Medical History Have you ever been diagnosed with any of the following: Neurological Problems Head Trauma: Yes Cardiology Problems Peripheral Vascular Disease: Yes Hypercholesterolemia: Yes Congestive Heart Failure: No Hypertension: Yes Respiratory Problems Chronic Obstructive Pulmonary Disease (COPD): No Asthma: No Stomache/Intestinal Problems Gastrointestinal Bleed: No Ulcer: No Hemorrhoids: No Genital/Urinary Problems Renal Disease: No Musculoskeletal Problems Arthritis: No Osteomyelitis: Yes Endocrine Problems Diabetes Mellitus Type 1: No Diabetes Mellitus Type 2: Yes Blood Problems Sickle Cell Disease: No Psychologic Problems Anxiety: Yes Other Problems Falls: Yes Blood Transfusions: No Anesthesia Reactions: No MRSA: Yes History of Present Illness HPI Narrative 54-year-old male past medical history of chronic osteomyelitis of both R and L lower extremity (h/x of previous amputations) type 2 diabetes on insulin, hypertension, diabetic neuropathy, coronary artery disease who comes to the clinic today for a follow up from the hospital in which he was admitted for osteomyelitis of the R foot, s/p debridement of both feet, and was discharged on IV rocephin and PO doxycycline to be continued until 05/06. Pt is complaining of abd pain and foot pain. Says he has not been sleeping well either, and attributes it to his abdominal pain. Says he sleeps at 9/10 pm everynight, but wakes up around 2am bc of abdominal pain, and then will wake back up at 5am. Denies having more than one caffeinated beverage throughout the day which is a coffee in the morning, and does not take naps throughout the day. He also says that he has not had a bowel movement since he was discharged from the hospital on 03/29. Endorses some loss of appetite too but says its due to his constipation. Also states that he has not taken his doxycycline as he was not able to pick it up from the pharmacy. 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 Also endorses some exertional dyspnea but denies swelling in his legs. Has not gotten a colonscopy before, no other complaints at this time. 08/26/2024: The patient presented for follow up and refill on his medicines. He reported having his rt foot stump sores and had 2 recent blisters that ruptured. He denied any foul smelling discharge from the site. He has been taking care by dressing everyday and follow up with wound care every week. He denied any headache, fever or chills, nausea or vomiting, chest pain, SOB, or abdominal pain. His medications are helping with constipation. He was made aware that his medication refills has been there and he just needs to call pharmacy if he has h is medications available or not, and if it is not there then make an appointment. 01/11/2025: The patient has a history of poorly controlled diabetes mellitus with complications, diabetic foot and osteomyelitis, coronary artery disease and CHF, HTN, peripheral arterial disease, was seen in clinic for follow-up, patient was recently incarcerated and was just released from facility last week. The patient has history of poorly controlled diabetes mellitus leading to diabetic foot and osteomyelitis, currently wounds are well-healed. Already finished antibiotic treatment. The patient is here to get refills on his medication, he has not taken any insulin for the past 3 days since he was released. Medications were refilled, and patient was advised strict compliance with medications. The patient will need to see cardiology for evaluation of coronary artery disease and gastroenterology for screening colonoscopy as well as podiatry with diabetes mellitus, referrals were ordered. The patient is also complaining of constipation off-and-on, denied hematochezia or melena, recommended patient to follow-up with gastroenterology and get a colonoscopy. Will follow-up patient in a later date with labs ordered renal function panel. 01/25/2025 the patient is seen for follow-up, reported consistent pain in his lower extremities due to neuropathy. Was prescribed gabapentin during last visi t, reported that he likes to take naproxen/Alleive for pain. Patient was counseled regarding use of Tylenol for increased symptom control as taking aspirin and naproxen does increase the risk for GI bleed. Patient reported he has been taking it for many years without any complications. Will prescribe GI prophylaxis for patient. Counseled extensively regarding decreasing naproxen use, prescribed meloxicam selective Guillory 2 inhibitor for symptom relief. Patient did bring home fingerstick glucose monitoring chart, more than 80% of the readings within range. Labs were reviewed, A1c 6.7%, currently well-controlled insulin Lantus a.m. 28 units, increase insulin Lantus at dinnertime to 30 units. 02/23/2025: Patient seen for medication refill. Refilled Famotidine 40mg qd, pen needle and strip for DM, Changed meloxicam to Naproxen for neuropathic pain. Advised patient to stop naproxen if any signs of stomach pain. 04/01/2025: Patient seen for medication refill. The following medications were refilled: PO naproxen 220 mg BID prn (20 pills), PO gabapentin 300 mg TID, glucose test strips, PO Linzess 72 mcg qD. He was also referred to Ophthalmology for continued management of his diabetic status (consults for Cardiology and Podiatry already in place). Labs have been ordered for HgbA1c, CMP, and lipid panel. Review of Systems Review of Systems Systems Reviewed: All systems reviewed, normal except as documented Objective/Exam Narrative Physical exam: General: A/O x3, no acute distress. Skin: Warm, dry, intact, no obvious rash. Head: Normocephalic, atraumatic. Eyes: PERRL, EOMI. Anicteric, vision grossly intact. Ears: No ear pain, no ear discharge, Hearing grossly intact. Nose: No nasal discharge. Mouth/Throat: Oral mucosa moist. No obvious lesions in oropharynx. Neck: Neck supple, non-tender, no cervical lymphadenopathy. Cardiovascular: Regular rate and rhythm, no murmur, no JVD or carotid bruits. +S1/S2. Respiratory: Bilateral lungs are clear to auscultation, respirations unlabored, no crackles, no wheezing. No accessory muscle use. Gastrointestinal: Soft, nontender, non-distended, no palpable masses. No guarding or rebound tenderness. Peristalsis present. Extremities: Right leg prosthetic (patient is s/p transmetatarsal amputation). Left foot wrapped in bandages (patient reports only having 3 toes remaining underneath as well as a new tear that has been opened on one of his toes). Neuro: No focal deficits observed. Conversant, moving all extremities. No overt cerebellar signs/incoordination. Psychiatric: Cooperative, appropriate affect. Assessment & Plan Diagnosis / Problem List (1) Diabetes mellitus with hyperglycemia: Status: Acute Plan: -Refilled patient's glucose test strips -Labs have been ordered for HgbA1c, CMP, and lipid panel. -Referred to Ophthalmology for continued management of his diabetic status (consults for Cardiology and Podiatry already in place). (2) Medication refill: Status: Acute Plan: -The following medications were refilled: PO naproxen 220 mg BID prn (20 pills), PO gabapentin 300 mg TID, glucose test strips, PO Linzess 72 mcg qD. (3) Neuropathy in diabetes: Status: Acute Assessment & Plan: -Refilled patient's naproxen and gabapentin as above Plan Medication refill: Prosthetic referral I have examined the patient and conferred with my attending, Dr. Sims, regarding them. Alpesh Miranda DO PGY-1 Internal Medicine Orders: Referrals Ophthalmology Alpesh Miranda MD [email or web address] - Type 2 diabetes mellitus with hyperglycemia Office Procedures [facility] Level of Care Nursing/Assessment Patient Status: Established Patient Nursing Assessment/Reassessment: Medication Reconciliation, Update PMH in EMR and Vital Signs Coordination of Care: Complex Care and Chronic Disease 1-5, Consent,records obtained, informed consent, Lab and Imaging orders, Results/Orders obtained and Staff clarify orders Established Patient Charge Established Patient Point Assignment: 90 Established Patient Point Charge: EP Level 3 (80-115)
== END 2025-04-01 14:08 | disposition home or self-care (01) ==
LOC: HODAHC 13:02
PROVIDERS: PCP Student in an Organized Health Care Education/Training Program; Referring Provider Student in an Organized Health Care Education/Training Program; Supervising Provider Internal Medicine
DX: Z76.0 Encounter for issue of repeat prescription (principal); E11.65 Type 2 diabetes mellitus with hyperglycemia; E11.40 Type 2 diabetes mellitus with diabetic neuropathy, unspecified
CPT/HCPCS: 99213; G0463

== ENCOUNTER 2025-04-29 13:38 | Outpatient (AMB) | payer MEDICAID, SELFPAY ==
--- NOTE | 2025-04-29 14:38 | ACNOTE_ITS ---
Vital Signs 04/29/25 14:39 Height 1.93 m Height Method Stated Weight 116.8 kg Weight Measurement Method Standing Scale BMI 31.4 BP 155/84 H Blood Pressure Source Automatic Cuff Blood Pressure Location Right Upper Arm Position Sitting Respiration 20 Pulse 116 H Pulse Source Monitor Temp 97.4 F Temp Source Temporal Artery Scan Pulse Oximetry (%) 97 Oxygen Delivery Method Room Air Allergies/Meds Allergies & Medications Allergies vancomycin Allergy (Severe, Verified 04/29/25 14:39) Swelling of Lip/Tongue/Throat Medication Reconciliation blood sugar diagnostic (Accu-Chek Guide test strips) #100 ea 04/15/24 [Rx Confirmed 04/29/25] polyethylene glycol 3350 17 gram/dose oral powder (Miralax) 4 g PO QDAY constipation #238 grams 06/17/24 [Rx Confirmed 04/29/25] acetaminophen 325 mg tablet 650 mg (2 x 325 mg) PO Q6H PRN Pain Scale 1-3 (Mild #14 tabs 01/11/25 [Rx Confirmed 04/29/25] blood-glucose meter (Accu-Chek Guide Glucose Meter) #1 ea 01/11/25 [Rx Confirmed 04/29/25] blood-glucose sensor (FreeStyle Ninoska 3 Sensor device) #2 ea 01/11/25 [Rx Confirmed 04/29/25] docusate sodium 100 mg capsule (Colace) 100 mg PO BID constipation #60 caps 01/11/25 [Rx Confirmed 04/29/25] lisinopril 40 mg tablet 40 mg PO QDAY #30 tabs 01/11/25 [Rx Confirmed 04/29/25] magnesium 200 mg tablet 200 mg PO QDAY #10 tabs 01/11/25 [Rx Confirmed 04/29/25] multivitamin with folic acid 400 mcg tablet (Tab-A-John) 1 tab PO QDAY #30 tabs 01/11/25 [Rx Confirmed 04/29/25] famotidine 40 mg tablet 40 mg PO QHS #30 tabs 02/23/25 [Rx Confirmed 04/29/25] gabapentin 300 mg capsule 300 mg PO TID #90 caps 04/01/25 [Rx Confirmed 04/29/25] lancets (Accu-Chek Softclix Lancets) #100 ea 04/01/25 [Rx Confirmed 04/29/25] pen needle, diabetic 31 gauge x 1/4 (1st Tier Unifine Pentips) #100 ea 04/01/25 [Rx Confirmed 04/29/25] aspirin 81 mg tablet,delayed release (Adult Aspirin Regimen) 81 mg PO QDAY 30 days #30 tabs 04/29/25 [Rx] atorvastatin 40 mg tablet (Lipitor) 40 mg PO QHS 30 days #30 tabs 04/29/25 [Rx] blood-glucose,rug setter velvet,cont (FreeStyle Ninoska 3 [place]) #1 ea 04/29/25 [Rx] carvedilol 3.125 mg tablet (Coreg) 3.125 mg PO BID #60 tabs 04/29/25 [Rx] celecoxib 200 mg capsule (Celebrex) 200 mg PO BID PRN pain 30 days #60 caps 04/29/25 [Rx] dapagliflozin propanediol 10 mg tablet (Farxiga) 10 mg PO QDAY Diabetes, HFpEF #30 tabs 04/29/25 [Rx] insulin degludec 200 unit/mL (3 mL) subcutaneous pen (Tresiba FlexTouch U-200 insulin) 30 unit (0.15 mL) subcut BID #9 mL 04/29/25 [Rx] lactulose 10 gram/15 mL oral solution 20 g (30 mL) PO BID 30 days #1,800 mL 04/29/25 [Rx] linaclotide 72 mcg capsule (Linzess) 72 mcg PO QDAY 30 days #30 caps 04/29/25 [Rx] metformin 500 mg tablet 1,000 mg (2 x 500 mg) PO BIDWMEAL #60 tabs 04/29/25 [Rx] semaglutide 0.25 mg or 0.5 mg (2 mg/3 mL) subcutaneous pen injector (Ozempic) 0.5 mg (0.736 mL) subcut QWEEK #3 mL 04/29/25 [Rx] MA Intake Visit Data Collection New Patient or Established: Established Patient (seen at [facility] within 3 years) Seen by Clinical Staff ONLY (RN/MA): No Pain Present Currently: Yes Pain Location: Foot Pain scale:: 6 Pain Scale Used: [place]-Ballard/Numerical Photo Cartographer Required: No PCP or OBGYN visit in last 3 months: Yes Hx Now: No Do You Feel Safe at Home: Yes Authorities Contacted: N/A Smoking Status Smoking Status: Former smoker Immunization / Flu Flu Vaccine in the Last 12 Months: No Flu Vaccine Exclusion Criteria: Refused by Patient Past Medical History Past Medical History NEUROLOGIC: Positive Neurological Disorders and Head Trauma CARDIAC: Positive Peripheral Vascular Disease, Hypercholesterolemia and Hypertension; Negative Cardiac Disorders or Congestive Heart Failure RESPIRATORY: Negative Chronic Obstructive Pulmonary Disease (COPD) or Asthma GASTROINTESTINAL: Negative Gastrointestinal Bleed, Ulcer or Hemorrhoids GENITOURINARY: Negative Renal Disease MUSCULOSKELETAL: Positive Osteomyelitis; Negative Arthritis ENT: Positive Head Trauma ENDOCRINE: Positive Endocrine Disorders and Diabetes Mellitus Type 2; Negative Diabetes Mellitus Type 1 HEMATOLOGIC: Negative Blood Disorders or Sickle Cell Disease PSYCHO/SOCIAL: Positive Anxiety OTHER HISTORY: Positive Falls and MRSA; Negative Blood Transfusions or Anesthesia Reactions Family History FAMILY HISTORY: Positive Family Cancer; Negative Family Psychiatric Problems, Family Respiratory Disorders, Family Cardiac Disorders, Family Gastrointestinal Problems or Family Anesthesia Reaction Surgical History SURGICAL: Positive Amputation; Negative Cardiac Surgery Social History SMOKING STATUS: Smoking status: Former smoker SECOND HAND EXPOSURE: second hand exposure: No (5 cig/day x10 yrs- QUIT 15 yrs ago) ALCOHOL: Alcohol Intake: Never HOUSING: Housing: House LIVES WITH: Lives With: Family Patient Portal Questionaires PHQ-9 PHQ-2 Over the last 2 weeks, how often have you been bothered by any of the following problems? 1. Little interest or pleasure in doing things: not at all 2. Feeling down, depressed, or hopeless: not at all Total score: 0 PHQ-9 3. Trouble falling or staying asleep, or sleeping too much: Not at all 4. Feeling tired or having little energy: Not at all 5. Poor appetite or overeating: Not at all 6. Feeling bad about yourself - or that you are a failure or have let yourself or your family down: Not at all 7. Trouble concentrating on things, such as reading the newspaper or watching television: Not at all 8. Moving or speaking so slowly that other people could have noticed? - Or the opposite - being so fidgety or restless that you have been moving around a lot more than usual: not at all 9. Thoughts that you would be better off or of hurting yourself in some way: Not at all Total score: 0 If you checked off any problems, how difficult have these problems made it for you to do your work, take care of things at home, or get along with other people?: not difficult at all Source: Developed by Drs. Nolan Carranza, Zaria Bean, Mo Crabtree and colleagues, with an educational chino from [employer]. Social History Living Situation History Housing: House Housing Other:: Pt lives with sister Tobacco History Smoking Status: Former smoker Second Hand Smoke Exposure: No (5 cig/day x10 yrs- QUIT 15 yrs ago) Alcohol History Alcohol Intake: Never Domestic Abuse History Do You Feel Safe at Home: Yes Review of Systems Report any current symptoms Only answer those that you have currently: Past Medical History Past Medical History Have you ever been diagnosed with any of the following: Neurological Problems Head Trauma: Yes Cardiology Problems Peripheral Vascular Disease: Yes Hypercholesterolemia: Yes Congestive Heart Failure: No Hypertension: Yes Respiratory Problems Chronic Obstructive Pulmonary Disease (COPD): No Asthma: No Stomache/Intestinal Problems Gastrointestinal Bleed: No Ulcer: No Hemorrhoids: No Genital/Urinary Problems Renal Disease: No Musculoskeletal Problems Arthritis: No Osteomyelitis: Yes Endocrine Problems Diabetes Mellitus Type 1: No Diabetes Mellitus Type 2: Yes Blood Problems Sickle Cell Disease: No Psychologic Problems Anxiety: Yes Other Problems Falls: Yes Blood Transfusions: No Anesthesia Reactions: No MRSA: Yes History of Present Illness HPI Narrative 54-year-old male past medical history of chronic osteomyelitis of both R and L lower extremity (h/x of previous amputations) type 2 diabetes on insulin, hypertension, diabetic neuropathy, coronary artery disease who comes to the clinic today for a follow up from the hospital in which he was admitted for osteomyelitis of the R foot, s/p debridement of both feet, and was discharged on IV rocephin and PO doxycycline to be continued until 05/06. Pt is complaining of abd pain and foot pain. Says he has not been sleeping well either, and attributes it to his abdominal pain. Says he sleeps at 9/10 pm everynight, but wakes up around 2am bc of abdominal pain, and then will wake back up at 5am. Denies having more than one caffeinated beverage throughout the day which is a coffee in the morning, and does not take naps throughout the day. He also says that he has not had a bowel movement since he was discharged from the hospital on 03/29. Endorses some loss of appetite too but says its due to his constipation. Also states that he has not taken his doxycycline as he was not able to pick it up from the pharmacy. He has also not been able to bean picker his other medicines from the pharmacy either. Also endorses some exertional dyspnea but denies swelling in his legs. Has not gotten a colonscopy before, no other complaints at this time. 08/26/2024: The patient presented for follow up and refill on his medicines. He reported having his rt foot stump sores and had 2 recent blisters that ruptured. He denied any foul smelling discharge from the site. He has been taking care by dressing everyday and follow up with wound care every week. He denied any headache, fever or chills, nausea or vomiting, chest pain, SOB, or abdominal pain. His medications are helping with constipation. He was made aware that his medication refills has been there and he just needs to call pharmacy if he has his medications available or not, and if it is not there then make an appointment. 01/11/2025: The patient has a history of poorly controlled diabetes mellitus with complications, diabetic foot and osteomyelitis, coronary artery disease and CHF, HTN, peripheral arterial disease, was seen in clinic for follow-up, patient was recently incarcerated and was just released from facility last week. The patient has history of poorly controlled diabetes mellitus leading to diabetic foot and osteomyelitis, currently wounds are well-healed. Already finished antibiotic treatment. The patient is here to get refills on his medication, he has not taken any insulin for the past 3 days since he was released. Medications were refilled, and patient was advised strict compliance with medications. The patient will need to see cardiology for evaluation of coronary artery disease and gastroenterology for screening colonoscopy as well as podiatry with diabetes mellitus, referrals were ordered. The patient is also complaining of constipation off-and-on, denied hematochezia or melena, recommended patient to follow-up with gastroenterology and get a colonoscopy. Will follow-up patient in a later date with labs ordered renal function panel. 01/25/2025 the patient is seen for follow-up, reported consistent pain in his lower extremities due to neuropathy. Was prescribed gabapentin during last visit, reported that he likes to take naproxen/Alleive for pain. Patient was counseled regarding use of Tylenol for increased symptom control as taking aspirin and naproxen does increase the risk for GI bleed. Patient reported he has been taking it for many years without any complications. Will prescribe GI prophylaxis for patient. Counseled extensively regarding decreasing naproxen use, prescribed meloxicam selective Guillory 2 inhibitor for symptom relief. Patient did bring home fingerstick glucose monitoring chart, more than 80% of the readings within range. Labs were reviewed, A1c 6.7%, currently well-controlled insulin Lantus a.m. 28 units, increase insulin Lantus at dinnertime to 30 units. 02/23/2025: Patient seen for medication refill. Refilled Famotidine 40mg qd, pen needle and strip for DM, Changed meloxicam to Naproxen for neuropathic pain. Advised patient to stop naproxen if any signs of stomach pain. 04/01/2025: Patient seen for medication refill. The following medications were refilled: PO naproxen 220 mg BID prn (20 pills), PO gabapentin 300 mg TID, glucose test strips, PO Linzess 72 mcg qD. He was also referred to Ophthalmology for continued management of his diabetic status (consults for Cardiology and Podiatry already in place). Labs have been ordered for HgbA1c, CMP, and lipid panel. 04/29/2025: Follow-up visit to review labs. HbA1c decreased to 7.8% from 9.1. LDL was elevated at 131 and ASCVD 16.8%. Patient reported phantom limb pain. Switch insulin glargine to Tresiba, increased metformin to 1 g p.o. twice daily, sta rted atorvastatin 40 mg p.o. at night, discontinued naproxen and started Celebrex. Refilled prescription for semaglutide 0.5 mg SC weekly. Also gave sample of freestyle ninoska 3+ and ordered reader. Follow-up in 1 month. At next visit we will increase semaglutide to 1 mg SC weekly. Repeat HbA1c, lipid panel and renal function on 06/2025. Patient also noticed ulcer on left great toe. Some warmth, no swelling. Denied and fever, vomiting or diarrhea. Patient declined examinationi due to foot being wrapped in bandage. Outpatient wound care refferal sent. Objective/Exam Narrative Physical exam: General: A/O x3, no acute distress. Skin: Warm, dry, intact, no obvious rash. Head: Normocephalic, atraumatic. Eyes: PERRL, EOMI. Anicteric, vision grossly intact. Ears: No ear pain, no ear discharge, Hearing grossly intact. Nose: No nasal discharge. Mouth/Throat: Oral mucosa moist. No obvious lesions in oropharynx. Neck: Neck supple, non-tender, no cervical lymphadenopathy. Cardiovascular: Regular rate and rhythm, no murmur, no JVD or carotid bruits. +S1/S2. Respiratory: Bilateral lungs are clear to auscultation, respirations unlabored, no crackles, no wheezing. No accessory muscle use. Gastrointestinal: Soft, nontender, non-distended, no palpable masses. No guarding or rebound tenderness. Peristalsis present. Extremities: Right leg prosthetic (patient is s/p transmetatarsal amputation). Left foot wrapped in bandages (patient reports only having 3 toes remaining underneath as well as a new tear that has been opened on one of his toes). Neuro: No focal deficits observed. Conversant, moving all extremities. No overt cerebellar signs/incoordination. Psychiatric: Cooperative, appropriate affect. 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 LDL was elevated at 131 and ASCVD 16.8%. Patient reported phantom limb pain. Switch insulin glargine to Tresiba, increased metformin to 1 g p.o. twice daily. Also gave sample of freestyle ninoska 3+ and ordered reader. Plan: - Switched insuline glargine to degludec 30 U sc BID - Increased Metofromin to 1g po BID - Repeat HbA1c, lipid panel and Renal panel on 06/2025 - Ordered Freestyle Ninoska 3 reader (2) Neuropathy in diabetes: Status: Chronic Qualifiers: Diabetes mellitus complication detail: diabetic autonomic neuropathy Diabetes mellitus type: type 2 Qualified Code(s): E11.43 - Type 2 diabetes mellitus with diabetic autonomic (poly)neuropathy Assessment & Plan: -Continue Gabapentin 300mg po TID - Discontinued Naproxen - Started on Celebrex 200 mg po bid prn (3) Diabetic ulcer of ankle: Status: Acute Assessment & Plan: Patient also noticed ulcer on left great toe. Some warmth, no swelling. Denied and fever, vomiting or diarrhea. Patient declined examinationi due to foot being wrapped in bandage. Outpatient wound care refferal sent. Plan: - Outpatient Wound care referral (4) Hyperlipidemia associated with type 2 diabetes mellitus: Status: Acute Assessment & Plan: HbA1c decreased to 7.8% from 9.1. LDL was elevated at 131 and ASCVD 16.8% Plan: -Atorvastatin 40mg po HS - Rpt Lipid panel in 3 months Plan Plan of care discussed with Attending Dr. Bethany Wade MD PGY 2 Disclaimer: This note was dictated by speech recognition. Minor errors in field handyman may be present due to voice recognition software. Orders: Referrals Wound Healing E11.622 - Type 2 diabetes mellitus with other skin ulcer, L97.309 - Non-pressure chronic ulcer of unspecified ankle with unspecified severity Office Procedures [facility] Level of Care Nursing/Assessment Patient Status: Established Patient Nursing Assessment/Reassessment: Medication Reconciliation, Update PMH in EMR and Vital Signs Coordination of Care: Complex Care and Chronic Disease 1-5, Complex Care/Chronic Disease 5 or more, Consent,records obtained, informed consent, Lab and Imaging orders, Results/Orders obtained and Staff clarify orders Established Patient Charge Established Patient Point Assignment: 125 Established Patient Point Charge: EP Level 4 (120-155)
[2025-04-29 14:39] VITALS: BP 155/84; PULSE 116; RESP 20; TEMP 36.3; O2SAT 97; BMI 31.4
== END 2025-04-29 15:42 | disposition home or self-care (01) ==
LOC: HODAHC 13:38
PROVIDERS: PCP Student in an Organized Health Care Education/Training Program; Referring Provider Student in an Organized Health Care Education/Training Program; Supervising Provider Internal Medicine
DX: E11.65 Type 2 diabetes mellitus with hyperglycemia (principal); E11.43 Type 2 diabetes mellitus with diabetic autonomic (poly)neuropathy; Z79.4 Long term (current) use of insulin; E11.622 Type 2 diabetes mellitus with other skin ulcer; L97.309 Non-pressure chronic ulcer of unspecified ankle with unspecified severity; E11.69 Type 2 diabetes mellitus with other specified complication; E78.5 Hyperlipidemia, unspecified
CPT/HCPCS: 99214; G0463

== ENCOUNTER → 2025-05-18 | Outpatient (CLI) | payer MEDICAID, SELFPAY | END | disposition home or self-care (01) | PROVIDERS: Visit Provider Student in an Organized Health Care Education/Training Program | DX: E11.621 Type 2 diabetes mellitus with foot ulcer (principal); L97.522 Non-pressure chronic ulcer of other part of left foot with fat layer exposed; Z79.4 Long term (current) use of insulin; Z79.84 Long term (current) use of oral hypoglycemic drugs; I73.9 Peripheral vascular disease, unspecified; M86.8X7 Other osteomyelitis, ankle and foot; Z87.891 Personal history of nicotine dependence; Z89.429 Acquired absence of other toe(s), unspecified side; Z91.81 History of falling; I10 Essential (primary) hypertension; F41.9 Anxiety disorder, unspecified; E78.00 Pure hypercholesterolemia, unspecified | CPT/HCPCS: 97597; 99213; A9270; G0463 ==

== ENCOUNTER → 2025-06-08 | Outpatient (CLI) | payer MEDICAID, SELFPAY | END | disposition home or self-care (01) | PROVIDERS: Visit Provider Student in an Organized Health Care Education/Training Program | DX: E11.621 Type 2 diabetes mellitus with foot ulcer (principal); S98.112A Complete traumatic amputation of left great toe, initial encounter; S98.131A Complete traumatic amputation of one right lesser toe, initial encounter; X58.XXXA Exposure to other specified factors, initial encounter; L97.415 Non-pressure chronic ulcer of right heel and midfoot with muscle involvement without evidence of necrosis; L97.522 Non-pressure chronic ulcer of other part of left foot with fat layer exposed; Z79.4 Long term (current) use of insulin; Z79.84 Long term (current) use of oral hypoglycemic drugs; I73.9 Peripheral vascular disease, unspecified; M86.8X7 Other osteomyelitis, ankle and foot; Z87.891 Personal history of nicotine dependence; Z89.429 Acquired absence of other toe(s), unspecified side; Z91.81 History of falling; I10 Essential (primary) hypertension; F41.9 Anxiety disorder, unspecified; E78.00 Pure hypercholesterolemia, unspecified | CPT/HCPCS: 97597; A9270 ==

== ENCOUNTER → 2025-06-08 | Outpatient (CLI) | payer MEDICAID, SELFPAY ==
--- NOTE | 2025-06-08 10:09 | XR_ITS ---
Examination: Toes, left foot first digit Technique: Toes AP oblique lateral 3 views Date and time of exam: June 08, 2025, 1012 hours, comparison 03/05/2024 INDICATIONS: Nonhealing ulcer left first digit 1 month. FINDINGS: Amputation second digit and fifth metatarsal Soft tissue swelling about the first digit No vivek cortical bone destruction IMPRESSION: No vivek cortical bone destruction, as clinically warranted, consider MRI foot repeat without contrast follow-up
== END | disposition home or self-care (01) ==
PROVIDERS: Referring Provider Student in an Organized Health Care Education/Training Program; Visit Provider Student in an Organized Health Care Education/Training Program
DX: E11.621 Type 2 diabetes mellitus with foot ulcer (principal)
CPT/HCPCS: 73660